=== PATIENT | male | born 1955 | race Hispanic/Latino ===

== ENCOUNTER 2017-09-11 15:12 | Inpatient (IN) | payer OTHER, MEDICARE ==
[~2017-09-11] VITALS: Ht 170.2 cm; Wt 170.8 kg
[~2017-09-11 15:12] MED LIST: ALBU90AE IH; ALBUHFA IH; DOCU-272 PO; FURO80TA3 PO; IRON1CAP3 PO; LISI40TA4 PO; MAGN400T6 PO; SPIR100T3 PO
[2017-09-11] MEDS ORDERED: ONDANSETRON HCL 4 MG/2 ML VIAL ONE ×2 (15:38→15:40)
[2017-09-11] MEDS ORDERED: SODIUM CHLORIDE 0.9% 1000ML 1,000 ML IV ONE (15:48)
[2017-09-11] MEDS ORDERED: MORPHINE SULFATE 2 MG/ML 1ML SYG ONE ×2 (15:48→22:09)
[2017-09-11 16:03] LABS: BASOPHILS % (AUTO) 0.2 % (0.0-5.0); HEMATOCRIT 40.5 % (42-54); LYMPHOCYTES % (AUTO) 6.2 % (21.0-51.0); MEAN CORPUSCULAR HEMOGLOBIN 28.8 pg (27.0-33.0); MEAN CORPUSCULAR HGB CONC 33.8 g/dL (32.0-36.0); MEAN CORPUSCULAR VOLUME 85.3 fL (79-99); MONOCYTES % (AUTO) 4.4 % (3.0-13.0); NEUTROPHILS % (AUTO) 89.2 % (40.0-77.0); PLATELET COUNT (AUTO) 137 K/uL (130-400); RED BLOOD CELL COUNT(AUTO) 4.75 MIL/uL (4.50-6.20); RED CELL DISTRIBUTION WIDTH 16.3 % (11.0-15.5); WHITE BLOOD COUNT (AUTO) 11.1 K/uL (4.8-10.8)
[2017-09-11 16:15] LABS: CREATININE 0.7 mg/dL (0.5-1.5); POTASSIUM 4.2 mmol/L (3.5-5.1)
[2017-09-11 16:19] LABS: BILIRUBIN,TOTAL 1.1 mg/dL (0.2-1.0); TOTAL PROTEIN, SERUM 9.2 g/dL (6.0-8.3)
[2017-09-11] MEDS ORDERED: IOPAMIDOL-370 100 ML VIAL IV ONE (16:41)
[2017-09-11] MEDS ORDERED: VANCOMYCIN 1GM+NS 250ML 250 ML IV ONE (18:02)
[2017-09-11] MEDS ORDERED: MEROPENEM 1 GM VIAL ONE (18:02)
[2017-09-11 20:22] LABS: APPEARANCE,URINE Clear (CLEAR); BILIRUBIN,URINE Negative (NEGATIVE); COLOR,URINE Dark Yellow (YELLOW); GLUCOSE, URINE (UA) Negative (NEGATIVE); KETONES,URINE Negative (NEGATIVE); LEUKOCYTE ESTERASE ,URINE Negative (NEGATIVE); NITRATE,URINE Negative (NEGATIVE); OCCULT BLOOD,URINE Negative (NEGATIVE); PROTEIN,URINE Negative (NEGATIVE)
[2017-09-11 21:05] VITALS: BP 157/86
[2017-09-11] MEDS ORDERED: MORPHINE SULFATE 2 MG/ML 1ML SYG IVP PRN (21:30)
[2017-09-11] MEDS ORDERED: DEXTROSE 50%-WATER 50 ML DISP.SYRIN IV PRN (21:30)
[2017-09-11] MEDS ORDERED: MORPHINE SULFATE 4 MG/1ML SYG IV PRN (21:30)
[2017-09-11] MEDS ORDERED: GLUCAGON 1MG KIT 1 MG ML IM PRN (21:30)
[2017-09-11] MEDS ORDERED: METF500T6 PO (22:40)
[2017-09-11] MEDS: SODIUM CHLORIDE 0.9% 1000ML 1,000 ML IV SCH (23:13)
[2017-09-11] MEDS: INSULIN HUMULIN R 100 UNIT/ML 3ML SQ SCH (23:15)
[2017-09-11 23:26] LABS: AMPHET/METH SCREEN,URINE NEGATIVE (NEGATIVE); BARBITURATE SCREEN, URINE NEGATIVE (NEGATIVE); BENZODIAZEPINES SCREEN,URINE NEGATIVE (NEGATIVE); CANNABINOID SCREEN,URINE POSITIVE (NEGATIVE); COCAINE SCREEN,URINE POSITIVE (NEGATIVE); OPIATE SCREEN,URINE POSITIVE (NEGATIVE); PHENCYCLIDINE SCREEN,URINE NEGATIVE (NEGATIVE)
[2017-09-12] VITALS: BP 126/57
[2017-09-12 04:00] VITALS: BP 133/71
[2017-09-12] MEDS: ONDANSETRON HCL 4 MG/2 ML VIAL IVP PRN (04:28)
[2017-09-12 04:45] LABS: HEMATOCRIT 38.4 % (42-54); MEAN CORPUSCULAR HEMOGLOBIN 28.5 pg (27.0-33.0); MEAN CORPUSCULAR HGB CONC 33.2 g/dL (32.0-36.0); MEAN CORPUSCULAR VOLUME 85.9 fL (79-99); PLATELET COUNT (AUTO) 112 K/uL (130-400); RED BLOOD CELL COUNT(AUTO) 4.47 MIL/uL (4.50-6.20); RED CELL DISTRIBUTION WIDTH 16.5 % (11.0-15.5); WHITE BLOOD COUNT (AUTO) 14.9 K/uL (4.8-10.8)
[2017-09-12 04:47] LABS: INR 1.1 (0.85-1.15); PROTHROMBIN TIME 11.5 SEC (9.6-11.6)
[2017-09-12 05:02] LABS: HEMOGLOBIN A1C 5.7 % (4.0-6.0)
[2017-09-12 05:04] LABS: CREATININE 0.8 mg/dL (0.5-1.5); POTASSIUM 3.8 mmol/L (3.5-5.1); THYROID STIMULATING HORMONE 0.93 uIU/mL (0.36-3.74)
[2017-09-12] MEDS: INSULIN HUMULIN R 100 UNIT/ML 3ML SQ SCH ×4 (05:15→23:15)
[2017-09-12] MEDS ORDERED: MEROPENEM 500MG+NS 50ML 50 ML IV SCH (06:00)
[2017-09-12] MEDS: MEROPENEM 500 MG VIAL IVP SCH ×3 (06:29→22:36)
[2017-09-12 08:17] VITALS: BP 133/64
[2017-09-12] MEDS ORDERED: PANTOPRAZOLE 40 MG/VIAL IVP SCH (09:00)
[2017-09-12] MEDS: FAMOTIDINE/PF 20 MG/2 ML VIAL IV SCH ×2 (09:16→20:12)
[2017-09-12] MEDS ORDERED: ACETAMINOPHEN-CODEINE 300/30MG TAB PO PRN (10:00)
[2017-09-12] MEDS ORDERED: MORPHINE SULFATE 4 MG/1ML SYG IVP PRN (10:15)
[2017-09-12 11:14] VITALS: BP 127/66
[2017-09-12] MEDS: SODIUM CHLORIDE 0.9% 1000ML 1,000 ML IV SCH (12:16)
[2017-09-12] MEDS: MORPHINE SULFATE 4 MG/1ML SYG IVP PRN ×2 (15:26→20:13)
[2017-09-12 17:09] VITALS: BP 120/68
[2017-09-12 19:38] VITALS: BP 127/64
[2017-09-13] VITALS (21 sets, daily range): BP systolic 116–159; BP diastolic 60–84
[2017-09-13] MEDS: MORPHINE SULFATE 4 MG/1ML SYG IVP PRN ×4 (00:45→20:49)
[2017-09-13] MEDS: SODIUM CHLORIDE 0.9% 1000ML 1,000 ML IV SCH ×4 (00:45→23:28)
[2017-09-13] MEDS: MEROPENEM 500 MG VIAL IVP SCH ×3 (05:11→23:53)
[2017-09-13] MEDS: INSULIN HUMULIN R 100 UNIT/ML 3ML SQ SCH ×6 (05:15→23:15)
[2017-09-13 05:55] LABS: HEMATOCRIT 36.3 % (42-54); MEAN CORPUSCULAR HEMOGLOBIN 29.4 pg (27.0-33.0); MEAN CORPUSCULAR HGB CONC 33.9 g/dL (32.0-36.0); MEAN CORPUSCULAR VOLUME 86.7 fL (79-99); PLATELET COUNT (AUTO) 104 K/uL (130-400); RED BLOOD CELL COUNT(AUTO) 4.19 MIL/uL (4.50-6.20); RED CELL DISTRIBUTION WIDTH 16.8 % (11.0-15.5)
[2017-09-13 06:09] LABS: CREATININE 0.8 mg/dL (0.5-1.5); POTASSIUM 3.7 mmol/L (3.5-5.1)
[2017-09-13] MEDS: FAMOTIDINE/PF 20 MG/2 ML VIAL IV SCH ×2 (09:09→20:48)
[2017-09-13] MEDS ORDERED: LIDOCAINE PF 2% 5ML ABBOJECT ONE ×2 (11:47→15:01)
[2017-09-13] MEDS ORDERED: NEOSTIGMINE 5MG/5ML SYR IV ONE ×2 (11:47→15:01)
[2017-09-13] MEDS ORDERED: FENTANYL CITRATE PF 50 MCG/1 ML 2ML VIAL ONE ×2 (11:48→13:33)
[2017-09-13] MEDS ORDERED: PROPOFOL 10 MG/ML 20ML VIAL IV ONE ×2 (11:48→12:13)
[2017-09-13] MEDS ORDERED: MIDAZOLAM HCL 1 MG/ML 2ML VIAL ONE (11:49)
[2017-09-13] MEDS ORDERED: LIDOCAINE HCL 2% JELLY 5 ML ONE (15:00)
[2017-09-13] MEDS ORDERED: SUCCINYLCHOLINE 200MG/10ML SYR ONE (15:00)
[2017-09-13] MEDS ORDERED: ROCURONIUM BROMIDE 10MG/1ML 5ML VL ONE (15:00)
[2017-09-13] MEDS ORDERED: GLYCOPYRROLATE 0.2 MG/ML 5 ML VIAL ONE (15:02)
[2017-09-13] MEDS ORDERED: PHENYLEPHRINE HCL 10 MG/ML 1ML VIAL IV ONE (15:02)
[2017-09-13] MEDS ORDERED: MEPERIDINE-PF 50 MG/ML SYG ONE (16:06)
[2017-09-13 16:14] LABS: CREATININE 0.8 mg/dL (0.5-1.5)
[2017-09-14 00:42] VITALS: BP 124/68
[2017-09-14] MEDS: MORPHINE SULFATE 4 MG/1ML SYG IVP PRN ×3 (03:25→14:30)
[2017-09-14 03:28] VITALS: BP 147/70
[2017-09-14] MEDS: INSULIN HUMULIN R 100 UNIT/ML 3ML SQ SCH ×7 (05:15→23:15)
[2017-09-14 06:06] LABS: BASOPHILS % (AUTO) 0.1 % (0.0-5.0); HEMATOCRIT 35.4 % (42-54); MEAN CORPUSCULAR HGB CONC 33.2 g/dL (32.0-36.0); MEAN CORPUSCULAR VOLUME 87.3 fL (79-99); MONOCYTES % (AUTO) 6.9 % (3.0-13.0); PLATELET COUNT (AUTO) 103 K/uL (130-400); RED BLOOD CELL COUNT(AUTO) 4.06 MIL/uL (4.50-6.20); RED CELL DISTRIBUTION WIDTH 16.7 % (11.0-15.5); WHITE BLOOD COUNT (AUTO) 7.5 K/uL (4.8-10.8)
[2017-09-14] MEDS: MEROPENEM 500 MG VIAL IVP SCH ×3 (06:14→22:00)
[2017-09-14 06:16] LABS: CREATININE 0.8 mg/dL (0.5-1.5)
[2017-09-14] MEDS: SODIUM CHLORIDE 0.9% 1000ML 1,000 ML IV SCH ×2 (07:28→17:13)
[2017-09-14 07:49] VITALS: BP 128/66
[2017-09-14] MEDS: FAMOTIDINE/PF 20 MG/2 ML VIAL IV SCH ×2 (09:26→21:00)
[2017-09-14 12:02] VITALS: BP 138/70
[2017-09-14 16:00] VITALS: BP 147/75
[2017-09-14 20:00] VITALS: BP 116/62
[2017-09-15] VITALS: BP 128/67
[2017-09-15] MEDS ORDERED: ALBUTEROL SULFATE 0.083% 2.5 MG/3 ML INH IH PRN (00:45)
[2017-09-15] MEDS: MORPHINE SULFATE 4 MG/1ML SYG IV PRN (02:35)
[2017-09-15 04:00] VITALS: BP 117/66
[2017-09-15] MEDS: INSULIN HUMULIN R 100 UNIT/ML 3ML SQ SCH ×3 (05:15→23:15)
[2017-09-15 05:31] LABS: BASOPHILS % (AUTO) 0.1 % (0.0-5.0); HEMATOCRIT 33.8 % (42-54); LYMPHOCYTES % (AUTO) 15.2 % (21.0-51.0); MEAN CORPUSCULAR HEMOGLOBIN 30.1 pg (27.0-33.0); MEAN CORPUSCULAR HGB CONC 34.6 g/dL (32.0-36.0); MONOCYTES % (AUTO) 9.7 % (3.0-13.0); NUCLEATED RED BLOOD CELLS 0.1 % (0.0-0.19); PLATELET COUNT (AUTO) 112 K/uL (130-400); RED BLOOD CELL COUNT(AUTO) 3.88 MIL/uL (4.50-6.20); RED CELL DISTRIBUTION WIDTH 16.5 % (11.0-15.5); WHITE BLOOD COUNT (AUTO) 7.1 K/uL (4.8-10.8)
[2017-09-15 05:41] LABS: CREATININE 0.7 mg/dL (0.5-1.5); POTASSIUM 3.5 mmol/L (3.5-5.1)
[2017-09-15] MEDS: MEROPENEM 500 MG VIAL IVP SCH ×3 (07:01→21:44)
[2017-09-15] MEDS: ALBUTEROL SULFATE 0.083% 2.5 MG/3 ML INH IH PRN ×2 (07:03→19:36)
[2017-09-15 08:00] VITALS: BP 126/77
[2017-09-15] MEDS: FAMOTIDINE/PF 20 MG/2 ML VIAL IV SCH ×2 (10:57→21:44)
[2017-09-15] MEDS: SODIUM CHLORIDE 0.9% 1000ML 1,000 ML IV SCH ×2 (10:57→12:44)
[2017-09-15] MEDS: MORPHINE SULFATE 4 MG/1ML SYG IVP PRN (10:58)
[2017-09-15 12:00] VITALS: BP 131/73
[2017-09-15 16:00] VITALS: BP 134/69
[2017-09-15] MEDS: KETOROLAC TROMETHAMINE 15MG/ML IV PRN (18:17)
[2017-09-15] MEDS: POTASSIUM CHLORIDE 20MEQ/100ML 100 ML IV PRN (18:18)
[2017-09-15] MEDS: LIDOCAINE HCL-MPF 1% 2ML VIAL IVP PRN (18:18)
[2017-09-15 20:00] VITALS: BP 132/62
[2017-09-16] VITALS (7 sets, daily range): BP systolic 121–148; BP diastolic 57–73
[2017-09-16] MEDS: MORPHINE SULFATE 4 MG/1ML SYG IV PRN (00:52)
[2017-09-16 05:05] LABS: CREATININE 0.7 mg/dL (0.5-1.5); POTASSIUM 3.6 mmol/L (3.5-5.1)
[2017-09-16] MEDS: INSULIN HUMULIN R 100 UNIT/ML 3ML SQ SCH ×4 (05:15→23:15)
[2017-09-16] MEDS: MEROPENEM 500 MG VIAL IVP SCH ×3 (06:05→21:37)
[2017-09-16] MEDS: SODIUM CHLORIDE 0.9% 1000ML 1,000 ML IV SCH ×3 (06:06→18:13)
[2017-09-16] MEDS: ALBUTEROL SULFATE 0.083% 2.5 MG/3 ML INH IH PRN ×2 (06:47→18:39)
[2017-09-16] MEDS: FAMOTIDINE/PF 20 MG/2 ML VIAL IV SCH ×2 (09:33→21:37)
[2017-09-16] MEDS: KETOROLAC TROMETHAMINE 15MG/ML IV PRN (09:33)
[2017-09-16] MEDS: MORPHINE SULFATE 4 MG/1ML SYG IVP PRN (21:39)
[2017-09-17] MEDS: MORPHINE SULFATE 4 MG/1ML SYG IVP PRN ×2 (02:58→18:44)
[2017-09-17 04:00] VITALS: BP 138/72
[2017-09-17] MEDS: SODIUM CHLORIDE 0.9% 1000ML 1,000 ML IV SCH ×2 (04:07→14:56)
[2017-09-17] MEDS: INSULIN HUMULIN R 100 UNIT/ML 3ML SQ SCH ×4 (05:15→20:46)
[2017-09-17] MEDS: MEROPENEM 500 MG VIAL IVP SCH ×3 (05:43→21:51)
[2017-09-17 05:47] LABS: HEMATOCRIT 34.4 % (42-54); MEAN CORPUSCULAR HEMOGLOBIN 30.5 pg (27.0-33.0); MEAN CORPUSCULAR VOLUME 87.3 fL (79-99); PLATELET COUNT (AUTO) 110 K/uL (130-400); RED BLOOD CELL COUNT(AUTO) 3.94 MIL/uL (4.50-6.20); RED CELL DISTRIBUTION WIDTH 16.6 % (11.0-15.5); WHITE BLOOD COUNT (AUTO) 5.9 K/uL (4.8-10.8)
[2017-09-17 05:52] LABS: CREATININE 0.7 mg/dL (0.5-1.5); POTASSIUM 3.3 mmol/L (3.5-5.1)
[2017-09-17] MEDS: ALBUTEROL SULFATE 0.083% 2.5 MG/3 ML INH IH PRN ×2 (06:06→18:41)
[2017-09-17 07:00] VITALS: BP 138/74
[2017-09-17] MEDS: FAMOTIDINE/PF 20 MG/2 ML VIAL IV SCH ×2 (09:36→20:06)
[2017-09-17] MEDS: KETOROLAC TROMETHAMINE 15MG/ML IV PRN (09:37)
[2017-09-17 11:00] VITALS: BP 130/68
[2017-09-17 16:00] VITALS: BP_SYST 115; BP_SYST 125; BP_DIAS 59; BP_DIAS 81
[2017-09-17] MEDS: POTASSIUM CHLORIDE 20MEQ/100ML 100 ML IV PRN (16:09)
[2017-09-17] MEDS: LIDOCAINE HCL-MPF 1% 2ML VIAL IVP PRN (16:09)
[2017-09-17 20:00] VITALS: BP 159/63
[2017-09-18] VITALS: BP 130/79
[2017-09-18] MEDS: SODIUM CHLORIDE 0.9% 1000ML 1,000 ML IV SCH (00:32)
[2017-09-18 04:00] VITALS: BP 155/80
[2017-09-18] MEDS: MORPHINE SULFATE 4 MG/1ML SYG IVP PRN (04:32)
[2017-09-18] MEDS: INSULIN HUMULIN R 100 UNIT/ML 3ML SQ SCH ×4 (05:15→20:57)
[2017-09-18] MEDS: MEROPENEM 500 MG VIAL IVP SCH ×3 (06:13→21:25)
[2017-09-18 06:14] LABS: CREATININE 0.8 mg/dL (0.5-1.5); POTASSIUM 3.1 mmol/L (3.5-5.1)
[2017-09-18] MEDS: ALBUTEROL SULFATE 0.083% 2.5 MG/3 ML INH IH PRN ×2 (06:41→18:37)
[2017-09-18 07:00] VITALS: BP 113/61
[2017-09-18] MEDS: LIDOCAINE HCL-MPF 1% 2ML VIAL IVP PRN (08:30)
[2017-09-18] MEDS: FAMOTIDINE/PF 20 MG/2 ML VIAL IV SCH ×2 (08:30→21:26)
[2017-09-18] MEDS: POTASSIUM CHLORIDE 20MEQ/100ML 100 ML IV PRN (08:30)
[2017-09-18 11:00] VITALS: BP 152/68
[2017-09-18 16:00] VITALS: BP 117/72
[2017-09-18] MEDS: FUROSEMIDE 40 MG TABLET PO SCH (17:56)
[2017-09-18 20:00] VITALS: BP 121/74
[2017-09-18] MEDS: ACETAMINOPHEN-CODEINE 300/30MG TAB PO PRN (21:26)
[2017-09-19] VITALS: BP 127/60
[2017-09-19] MEDS: ACETAMINOPHEN-CODEINE 300/30MG TAB PO PRN ×3 (03:43→19:54)
[2017-09-19 04:00] VITALS: BP 138/78
[2017-09-19] MEDS: INSULIN HUMULIN R 100 UNIT/ML 3ML SQ SCH ×4 (05:15→22:11)
[2017-09-19] MEDS: ONDANSETRON HCL 4 MG/2 ML VIAL IVP PRN ×2 (05:33→23:58)
[2017-09-19] MEDS: MEROPENEM 500 MG VIAL IVP SCH ×3 (05:33→22:04)
[2017-09-19 06:23] LABS: HEMATOCRIT 41.2 % (42-54); MEAN CORPUSCULAR HEMOGLOBIN 28.4 pg (27.0-33.0); MEAN CORPUSCULAR HGB CONC 32.9 g/dL (32.0-36.0); MEAN CORPUSCULAR VOLUME 86.4 fL (79-99); PLATELET COUNT (AUTO) 204 K/uL (130-400); RED BLOOD CELL COUNT(AUTO) 4.77 MIL/uL (4.50-6.20); RED CELL DISTRIBUTION WIDTH 16.5 % (11.0-15.5); WHITE BLOOD COUNT (AUTO) 17.5 K/uL (4.8-10.8)
[2017-09-19 06:32] LABS: POTASSIUM 3.2 mmol/L (3.5-5.1)
[2017-09-19 08:37] VITALS: BP 141/69
[2017-09-19] MEDS: KETOROLAC TROMETHAMINE 15MG/ML IV PRN (10:13)
[2017-09-19] MEDS: POTASSIUM CHLORIDE 20 MEQ ERTAB PO PRN ×3 (10:13→17:26)
[2017-09-19] MEDS: FAMOTIDINE/PF 20 MG/2 ML VIAL IV SCH ×2 (10:13→19:54)
[2017-09-19] MEDS: FUROSEMIDE 40 MG TABLET PO SCH ×2 (10:14→17:25)
[2017-09-19] MEDS: SPIRONOLACTONE 25 MG TAB PO SCH (10:14)
[2017-09-19 11:54] VITALS: BP 147/71
[2017-09-19 16:41] VITALS: BP 149/78
[2017-09-19 20:00] VITALS: BP 140/74
[2017-09-20] VITALS: BP 138/83
[2017-09-20] MEDS: ACETAMINOPHEN-CODEINE 300/30MG TAB PO PRN ×3 (03:27→18:18)
[2017-09-20 04:00] VITALS: BP 139/88
[2017-09-20] MEDS: INSULIN HUMULIN R 100 UNIT/ML 3ML SQ SCH ×3 (05:15→23:15)
[2017-09-20 05:30] LABS: HEMATOCRIT 39.1 % (42-54); MEAN CORPUSCULAR HEMOGLOBIN 28.5 pg (27.0-33.0); MEAN CORPUSCULAR HGB CONC 33.3 g/dL (32.0-36.0); MEAN CORPUSCULAR VOLUME 85.6 fL (79-99); PLATELET COUNT (AUTO) 129 K/uL (130-400); RED BLOOD CELL COUNT(AUTO) 4.56 MIL/uL (4.50-6.20); RED CELL DISTRIBUTION WIDTH 16.4 % (11.0-15.5); WHITE BLOOD COUNT (AUTO) 11.2 K/uL (4.8-10.8)
[2017-09-20 05:42] LABS: CREATININE 0.8 mg/dL (0.5-1.5); MAGNESIUM 1.4 mg/dL (1.80-2.40); POTASSIUM 3.6 mmol/L (3.5-5.1)
[2017-09-20] MEDS: ALBUTEROL SULFATE 0.083% 2.5 MG/3 ML INH IH PRN (05:56)
[2017-09-20] MEDS: MEROPENEM 500 MG VIAL IVP SCH ×3 (06:43→22:53)
[2017-09-20 08:00] VITALS: BP 134/73
[2017-09-20] MEDS: MAGNESIUM 2GM PREMIX 50ML 50 ML IV SCH (11:08)
[2017-09-20] MEDS: FAMOTIDINE/PF 20 MG/2 ML VIAL IV SCH ×2 (11:08→20:12)
[2017-09-20] MEDS: SPIRONOLACTONE 25 MG TAB PO SCH (11:08)
[2017-09-20] MEDS: FUROSEMIDE 40 MG TABLET PO SCH ×2 (11:09→17:00)
[2017-09-20 12:00] VITALS: BP 132/77
[2017-09-20 16:00] VITALS: BP 120/73
[2017-09-20 20:00] VITALS: BP 150/66
[2017-09-20] MEDS: ONDANSETRON HCL 4 MG/2 ML VIAL IVP PRN (20:12)
[2017-09-21] VITALS: BP 144/78
[2017-09-21 04:00] VITALS: BP 114/76
[2017-09-21] MEDS: INSULIN HUMULIN R 100 UNIT/ML 3ML SQ SCH ×4 (05:15→23:15)
[2017-09-21 05:29] LABS: BASOPHILS % (AUTO) 0.5 % (0.0-5.0); HEMATOCRIT 38.9 % (42-54); LYMPHOCYTES % (AUTO) 14.5 % (21.0-51.0); MEAN CORPUSCULAR HEMOGLOBIN 28.5 pg (27.0-33.0); MEAN CORPUSCULAR HGB CONC 33.5 g/dL (32.0-36.0); MEAN CORPUSCULAR VOLUME 85.2 fL (79-99); MONOCYTES % (AUTO) 9.8 % (3.0-13.0); NEUTROPHILS % (AUTO) 74.2 % (40.0-77.0); PLATELET COUNT (AUTO) 144 K/uL (130-400); RED BLOOD CELL COUNT(AUTO) 4.57 MIL/uL (4.50-6.20); RED CELL DISTRIBUTION WIDTH 16.6 % (11.0-15.5); WHITE BLOOD COUNT (AUTO) 11.5 K/uL (4.8-10.8)
[2017-09-21 05:43] LABS: POTASSIUM 3.2 mmol/L (3.5-5.1)
[2017-09-21] MEDS: MEROPENEM 500 MG VIAL IVP SCH ×3 (06:28→22:30)
[2017-09-21 08:00] VITALS: BP 140/83
[2017-09-21] MEDS: FUROSEMIDE 40 MG TABLET PO SCH ×2 (10:58→13:10)
[2017-09-21 11:53] VITALS: BP 130/74
[2017-09-21] MEDS: SPIRONOLACTONE 25 MG TAB PO SCH (13:10)
[2017-09-21] MEDS: POTASSIUM CHLORIDE 20 MEQ ERTAB PO PRN ×3 (13:11→19:29)
[2017-09-21] MEDS: ACETAMINOPHEN-CODEINE 300/30MG TAB PO PRN ×2 (13:12→19:30)
[2017-09-21] MEDS: FAMOTIDINE/PF 20 MG/2 ML VIAL IV SCH ×2 (13:13→22:29)
[2017-09-21 16:00] VITALS: BP 157/89
[2017-09-21] MEDS: ALBUTEROL SULFATE 0.083% 2.5 MG/3 ML INH IH PRN (18:32)
[2017-09-21 20:00] VITALS: BP 142/81
[2017-09-22] VITALS (26 sets, daily range): BP systolic 119–188; BP diastolic 76–94
[2017-09-22 05:01] LABS: MEAN CORPUSCULAR HEMOGLOBIN 28.6 pg (27.0-33.0); MEAN CORPUSCULAR HGB CONC 33.9 g/dL (32.0-36.0); MEAN CORPUSCULAR VOLUME 84.4 fL (79-99); NUCLEATED RED BLOOD CELLS 0.1 % (0.0-0.19); PLATELET COUNT (AUTO) 154 K/uL (130-400); RED BLOOD CELL COUNT(AUTO) 4.61 MIL/uL (4.50-6.20); RED CELL DISTRIBUTION WIDTH 16.5 % (11.0-15.5); WHITE BLOOD COUNT (AUTO) 12.8 K/uL (4.8-10.8)
[2017-09-22] MEDS: INSULIN HUMULIN R 100 UNIT/ML 3ML SQ SCH ×4 (05:15→23:15)
[2017-09-22 05:37] LABS: MAGNESIUM 1.3 mg/dL (1.80-2.40); PHOSPHORUS 3.6 mg/dL (2.5-4.9); POTASSIUM 3.4 mmol/L (3.5-5.1)
[2017-09-22] MEDS: ALBUTEROL SULFATE 0.083% 2.5 MG/3 ML INH IH PRN (06:15)
[2017-09-22] MEDS: MEROPENEM 500 MG VIAL IVP SCH ×3 (06:54→21:59)
[2017-09-22] MEDS: POTASSIUM CHLORIDE 20MEQ/100ML 100 ML IV PRN (06:55)
[2017-09-22] MEDS: LIDOCAINE HCL-MPF 1% 2ML VIAL IVP PRN (06:55)
[2017-09-22] MEDS ORDERED: SODIUM CHLORIDE 0.9% 1000ML 1,000 ML IV ONE (07:01)
[2017-09-22] MEDS: FUROSEMIDE 40 MG TABLET PO SCH ×2 (08:00→16:48)
[2017-09-22] MEDS: FAMOTIDINE/PF 20 MG/2 ML VIAL IV SCH ×2 (08:52→21:58)
[2017-09-22] MEDS: MAGNESIUM 2GM PREMIX 50ML 50 ML IV SCH (08:53)
[2017-09-22] MEDS: SPIRONOLACTONE 25 MG TAB PO SCH (09:00)
[2017-09-22] MEDS: SODIUM CHLORIDE 0.9% 1000ML 1,000 ML IV SCH ×2 (09:24→16:48)
[2017-09-22] MEDS ORDERED: MORPHINE SULFATE 2 MG/ML 1ML SYG IVP PRN (09:30)
[2017-09-22] MEDS ORDERED: HYDRALAZINE HCL 20 MG/ML VIAL IV PRN (09:30)
[2017-09-22] MEDS ORDERED: MEROPENEM 500 MG VIAL IVP SCH (10:45)
[2017-09-22] MEDS ORDERED: PROPOFOL 10 MG/ML 20ML VIAL IV ONE (12:06)
[2017-09-22] MEDS ORDERED: GLYCOPYRROLATE 0.2 MG/ML 5 ML VIAL ONE (12:06)
[2017-09-22] MEDS ORDERED: LIDOCAINE PF 2% 5ML ABBOJECT ONE (12:06)
[2017-09-22] MEDS ORDERED: FENTANYL CITRATE PF 50 MCG/1 ML 2ML VIAL ONE (12:06)
[2017-09-22] MEDS ORDERED: ONDANSETRON HCL 4 MG/2 ML VIAL ONE (12:06)
[2017-09-22] MEDS ORDERED: SUCCINYLCHOLINE 200MG/10ML SYR ONE (12:06)
[2017-09-22] MEDS ORDERED: DEXAMETHASONE SOD PHOSPHATE 10MG/ML 1ML VIAL ONE (12:06)
[2017-09-22] MEDS ORDERED: MIDAZOLAM HCL 1 MG/ML 2ML VIAL ONE (12:07)
[2017-09-22] MEDS ORDERED: ROCURONIUM BROMIDE 10MG/1ML 5ML VL ONE ×2 (12:13→12:41)
[2017-09-22] MEDS ORDERED: NEOSTIGMINE METHYLSULFATE 1MG/ML IV ONE (14:18)
[2017-09-22] MEDS ORDERED: MEPERIDINE-PF 25 MG/ML SYG ONE ×2 (14:50→14:59)
[2017-09-22] MEDS ORDERED: LABETALOL 20 MG/4 ML DISP.SYRIN IV PRN (18:45)
[2017-09-22] MEDS: MORPHINE SULFATE 2 MG/ML 1ML SYG IV PRN ×2 (19:09→23:09)
[2017-09-22] MEDS ORDERED: LABETALOL HCL 5 MG/ML 20ML VIAL IV PRN (19:09)
[2017-09-22] MEDS: CEFTAZIDIME PENTAHYDRATE 1 GM/VIAL IVP SCH (21:59)
[2017-09-22] MEDS ORDERED: CEFTAZIDIME 1GM+NS 50ML 50 ML IV SCH (22:00)
[2017-09-23] VITALS: BP 150/69
[2017-09-23] MEDS: SODIUM CHLORIDE 0.9% 1000ML 1,000 ML IV SCH ×4 (00:28→20:01)
[2017-09-23] MEDS: MORPHINE SULFATE 2 MG/ML 1ML SYG IV PRN ×3 (03:34→22:49)
[2017-09-23 04:00] VITALS: BP 176/78
[2017-09-23] MEDS: INSULIN HUMULIN R 100 UNIT/ML 3ML SQ SCH ×4 (05:15→23:15)
[2017-09-23 05:16] LABS: BASOPHILS % (AUTO) 0.2 % (0.0-5.0); HEMATOCRIT 39.3 % (42-54); MEAN CORPUSCULAR HEMOGLOBIN 28.2 pg (27.0-33.0); MEAN CORPUSCULAR HGB CONC 33.1 g/dL (32.0-36.0); MEAN CORPUSCULAR VOLUME 85.1 fL (79-99); MONOCYTES % (AUTO) 4.6 % (3.0-13.0); NEUTROPHILS % (AUTO) 90.2 % (40.0-77.0); NUCLEATED RED BLOOD CELLS 0.1 % (0.0-0.19); PLATELET COUNT (AUTO) 161 K/uL (130-400); RED BLOOD CELL COUNT(AUTO) 4.62 MIL/uL (4.50-6.20); RED CELL DISTRIBUTION WIDTH 16.6 % (11.0-15.5); WHITE BLOOD COUNT (AUTO) 13.7 K/uL (4.8-10.8)
[2017-09-23 05:24] LABS: CREATININE 0.9 mg/dL (0.5-1.5); POTASSIUM 4.4 mmol/L (3.5-5.1)
[2017-09-23] MEDS: ALBUTEROL SULFATE 0.083% 2.5 MG/3 ML INH IH PRN ×2 (06:22→19:55)
[2017-09-23] MEDS: CEFTAZIDIME PENTAHYDRATE 1 GM/VIAL IVP SCH ×3 (07:09→22:18)
[2017-09-23] MEDS: MEROPENEM 500 MG VIAL IVP SCH ×3 (07:10→22:18)
[2017-09-23 08:00] VITALS: BP 141/70
[2017-09-23] MEDS: FUROSEMIDE 40 MG TABLET PO SCH ×2 (08:00→16:11)
[2017-09-23] MEDS: SPIRONOLACTONE 25 MG TAB PO SCH (09:00)
[2017-09-23] MEDS: FAMOTIDINE/PF 20 MG/2 ML VIAL IV SCH ×2 (10:04→22:18)
[2017-09-23 12:00] VITALS: BP 146/77
[2017-09-23] MEDS: MORPHINE SULFATE 4 MG/1ML SYG IV PRN (13:34)
[2017-09-23 17:26] VITALS: BP 154/76
[2017-09-23 20:00] VITALS: BP 145/71
[2017-09-24] VITALS: BP 141/67
[2017-09-24] MEDS: SODIUM CHLORIDE 0.9% 1000ML 1,000 ML IV SCH ×3 (01:24→19:09)
[2017-09-24 04:00] VITALS: BP 138/74
[2017-09-24] MEDS: MORPHINE SULFATE 2 MG/ML 1ML SYG IV PRN ×3 (04:19→21:13)
[2017-09-24] MEDS: INSULIN HUMULIN R 100 UNIT/ML 3ML SQ SCH ×4 (05:15→23:15)
[2017-09-24 05:45] LABS: BASOPHILS % (AUTO) 0.1 % (0.0-5.0); HEMATOCRIT 34.8 % (42-54); MEAN CORPUSCULAR HEMOGLOBIN 29.7 pg (27.0-33.0); MEAN CORPUSCULAR HGB CONC 34.2 g/dL (32.0-36.0); MEAN CORPUSCULAR VOLUME 86.7 fL (79-99); NEUTROPHILS % (AUTO) 82.9 % (40.0-77.0); PLATELET COUNT (AUTO) 150 K/uL (130-400); RED BLOOD CELL COUNT(AUTO) 4.02 MIL/uL (4.50-6.20); RED CELL DISTRIBUTION WIDTH 16.9 % (11.0-15.5); WHITE BLOOD COUNT (AUTO) 10.7 K/uL (4.8-10.8)
[2017-09-24 05:59] LABS: CREATININE 0.7 mg/dL (0.5-1.5); POTASSIUM 3.6 mmol/L (3.5-5.1)
[2017-09-24] MEDS: CEFTAZIDIME PENTAHYDRATE 1 GM/VIAL IVP SCH ×3 (06:01→21:06)
[2017-09-24] MEDS: MEROPENEM 500 MG VIAL IVP SCH ×3 (06:02→21:06)
[2017-09-24] MEDS: POTASSIUM CHLORIDE 20MEQ/100ML 100 ML IV PRN (06:35)
[2017-09-24] MEDS: LIDOCAINE HCL-MPF 1% 2ML VIAL IVP PRN (06:35)
[2017-09-24 07:33] VITALS: BP 138/74
[2017-09-24] MEDS: FUROSEMIDE 40 MG TABLET PO SCH ×3 (08:00→17:00)
[2017-09-24] MEDS: SPIRONOLACTONE 25 MG TAB PO SCH (09:00)
[2017-09-24] MEDS: FAMOTIDINE/PF 20 MG/2 ML VIAL IV SCH ×2 (09:00→20:54)
[2017-09-24 12:05] VITALS: BP 132/69
[2017-09-24 15:35] VITALS: BP 124/67
[2017-09-24 20:00] VITALS: BP 133/74
[2017-09-25] VITALS: BP 127/61
[2017-09-25] MEDS: MORPHINE SULFATE 2 MG/ML 1ML SYG IV PRN ×2 (01:40→22:36)
[2017-09-25 04:00] VITALS: BP 133/72
[2017-09-25] MEDS: INSULIN HUMULIN R 100 UNIT/ML 3ML SQ SCH ×4 (05:15→23:15)
[2017-09-25 05:47] LABS: BASOPHILS % (AUTO) 0.1 % (0.0-5.0); EOSINOPHILS % (AUTO) 0.1 % (0.0-8.0); HEMATOCRIT 39.6 % (42-54); LYMPHOCYTES % (AUTO) 11.2 % (21.0-51.0); MEAN CORPUSCULAR HEMOGLOBIN 28.1 pg (27.0-33.0); MEAN CORPUSCULAR HGB CONC 32.3 g/dL (32.0-36.0); MEAN CORPUSCULAR VOLUME 87.2 fL (79-99); MONOCYTES % (AUTO) 10.8 % (3.0-13.0); NEUTROPHILS % (AUTO) 77.8 % (40.0-77.0); PLATELET COUNT (AUTO) 212 K/uL (130-400); RED BLOOD CELL COUNT(AUTO) 4.54 MIL/uL (4.50-6.20); RED CELL DISTRIBUTION WIDTH 16.5 % (11.0-15.5); WHITE BLOOD COUNT (AUTO) 17.1 K/uL (4.8-10.8)
[2017-09-25 05:54] LABS: POTASSIUM 4.1 mmol/L (3.5-5.1)
[2017-09-25] MEDS: MEROPENEM 500 MG VIAL IVP SCH (05:55)
[2017-09-25] MEDS: CEFTAZIDIME PENTAHYDRATE 1 GM/VIAL IVP SCH ×3 (05:55→22:34)
[2017-09-25] MEDS: FAMOTIDINE/PF 20 MG/2 ML VIAL IV SCH ×3 (07:43→22:34)
[2017-09-25] MEDS: MORPHINE SULFATE 4 MG/1ML SYG IV PRN ×2 (07:43→17:08)
[2017-09-25 07:52] VITALS: BP 146/78
[2017-09-25] MEDS: FUROSEMIDE 40 MG TABLET PO SCH ×2 (08:00→17:00)
[2017-09-25] MEDS: SPIRONOLACTONE 25 MG TAB PO SCH (09:00)
[2017-09-25] MEDS: SODIUM CHLORIDE 0.9% 1000ML 1,000 ML IV SCH ×2 (09:27→23:45)
[2017-09-25 11:15] VITALS: BP 139/83
[2017-09-25 16:36] VITALS: BP 146/68
[2017-09-25] MEDS: METRONIDAZOLE 500MG/100ML BAG 100 ML IV SCH ×2 (17:07→22:34)
[2017-09-25 20:00] VITALS: BP 112/69
[2017-09-26] VITALS (7 sets, daily range): BP systolic 122–169; BP diastolic 66–79
[2017-09-26] MEDS: MORPHINE SULFATE 2 MG/ML 1ML SYG IV PRN ×3 (03:49→21:53)
[2017-09-26] MEDS: INSULIN HUMULIN R 100 UNIT/ML 3ML SQ SCH ×4 (05:15→21:54)
[2017-09-26 05:37] LABS: BASOPHILS % (AUTO) 0.2 % (0.0-5.0); EOSINOPHILS % (AUTO) 0.5 % (0.0-8.0); HEMATOCRIT 33.6 % (42-54); LYMPHOCYTES % (AUTO) 12.1 % (21.0-51.0); MEAN CORPUSCULAR HEMOGLOBIN 29.2 pg (27.0-33.0); MEAN CORPUSCULAR HGB CONC 34.2 g/dL (32.0-36.0); MEAN CORPUSCULAR VOLUME 85.3 fL (79-99); MONOCYTES % (AUTO) 13.1 % (3.0-13.0); NEUTROPHILS % (AUTO) 74.1 % (40.0-77.0); NUCLEATED RED BLOOD CELLS 0.1 % (0.0-0.19); PLATELET COUNT (AUTO) 115 K/uL (130-400); RED BLOOD CELL COUNT(AUTO) 3.94 MIL/uL (4.50-6.20); RED CELL DISTRIBUTION WIDTH 16.1 % (11.0-15.5); WHITE BLOOD COUNT (AUTO) 9.4 K/uL (4.8-10.8)
[2017-09-26 05:47] LABS: CREATININE 0.7 mg/dL (0.5-1.5); POTASSIUM 3.2 mmol/L (3.5-5.1)
[2017-09-26] MEDS: CEFTAZIDIME PENTAHYDRATE 1 GM/VIAL IVP SCH ×3 (05:57→21:53)
[2017-09-26] MEDS: METRONIDAZOLE 500MG/100ML BAG 100 ML IV SCH ×3 (05:57→21:53)
[2017-09-26] MEDS: ALBUTEROL SULFATE 0.083% 2.5 MG/3 ML INH IH PRN ×2 (05:57→19:29)
[2017-09-26] MEDS: POTASSIUM CHLORIDE 20MEQ/100ML 100 ML IV PRN (06:39)
[2017-09-26] MEDS: LIDOCAINE HCL-MPF 1% 2ML VIAL IVP PRN (06:42)
[2017-09-26] MEDS: FAMOTIDINE/PF 20 MG/2 ML VIAL IV SCH (09:48)
[2017-09-26] MEDS: FUROSEMIDE 40 MG TABLET PO SCH ×2 (09:48→17:17)
[2017-09-26] MEDS: POTASSIUM CHLORIDE 10% ELIXIR 20 MEQ/15 ML UDCUP PO PRN ×2 (09:48→12:19)
[2017-09-26] MEDS: SPIRONOLACTONE 25 MG TAB PO SCH (09:48)
[2017-09-27 04:00] VITALS: BP 132/72
[2017-09-27] MEDS: INSULIN HUMULIN R 100 UNIT/ML 3ML SQ SCH ×4 (05:15→20:58)
[2017-09-27 05:48] LABS: BASOPHILS % (AUTO) 0.3 % (0.0-5.0); EOSINOPHILS % (AUTO) 1.5 % (0.0-8.0); LYMPHOCYTES % (AUTO) 20.7 % (21.0-51.0); MEAN CORPUSCULAR HEMOGLOBIN 28.8 pg (27.0-33.0); MEAN CORPUSCULAR HGB CONC 33.9 g/dL (32.0-36.0); MONOCYTES % (AUTO) 15.3 % (3.0-13.0); NEUTROPHILS % (AUTO) 62.2 % (40.0-77.0); PLATELET COUNT (AUTO) 121 K/uL (130-400); RED BLOOD CELL COUNT(AUTO) 3.77 MIL/uL (4.50-6.20); RED CELL DISTRIBUTION WIDTH 16.3 % (11.0-15.5); WHITE BLOOD COUNT (AUTO) 8.1 K/uL (4.8-10.8)
[2017-09-27] MEDS: ALBUTEROL SULFATE 0.083% 2.5 MG/3 ML INH IH PRN ×2 (05:50→19:00)
[2017-09-27 05:54] LABS: CREATININE 0.7 mg/dL (0.5-1.5); POTASSIUM 3.3 mmol/L (3.5-5.1)
[2017-09-27] MEDS: CEFTAZIDIME PENTAHYDRATE 1 GM/VIAL IVP SCH ×3 (06:40→20:36)
[2017-09-27] MEDS: METRONIDAZOLE 500MG/100ML BAG 100 ML IV SCH ×3 (06:40→20:36)
[2017-09-27] MEDS: MORPHINE SULFATE 4 MG/1ML SYG IV PRN ×2 (06:41→13:30)
[2017-09-27] MEDS: POTASSIUM CHLORIDE 20 MEQ ERTAB PO PRN ×4 (06:53→17:16)
[2017-09-27 08:09] VITALS: BP 113/56
[2017-09-27] MEDS: FUROSEMIDE 40 MG TABLET PO SCH ×2 (09:09→17:16)
[2017-09-27] MEDS: SPIRONOLACTONE 25 MG TAB PO SCH (09:09)
[2017-09-27] MEDS: FAMOTIDINE/PF 20 MG/2 ML VIAL IV SCH ×2 (09:09→20:36)
[2017-09-27 11:44] VITALS: BP 128/63
[2017-09-27] MEDS: ACETAMINOPHEN-CODEINE 300/30MG TAB PO PRN (12:10)
[2017-09-27 16:45] VITALS: BP 139/75
[2017-09-27 20:00] VITALS: BP 133/70
[2017-09-27] MEDS: MORPHINE SULFATE 4 MG/1ML SYG IVP PRN (20:52)
[2017-09-27 23:47] VITALS: BP 149/80
[2017-09-28 03:34] VITALS: BP 92/59
[2017-09-28 05:52] LABS: POTASSIUM 3.4 mmol/L (3.5-5.1)
[2017-09-28] MEDS: ALBUTEROL SULFATE 0.083% 2.5 MG/3 ML INH IH PRN (06:01)
[2017-09-28] MEDS: CEFTAZIDIME PENTAHYDRATE 1 GM/VIAL IVP SCH (06:37)
[2017-09-28] MEDS: METRONIDAZOLE 500MG/100ML BAG 100 ML IV SCH (06:37)
[2017-09-28] MEDS: MORPHINE SULFATE 4 MG/1ML SYG IVP PRN ×2 (06:38→12:04)
[2017-09-28] MEDS: INSULIN HUMULIN R 100 UNIT/ML 3ML SQ SCH ×2 (06:38→12:02)
[2017-09-28] MEDS: FUROSEMIDE 40 MG TABLET PO SCH (08:00)
[2017-09-28 08:02] VITALS: BP 146/71
[2017-09-28] MEDS: FAMOTIDINE/PF 20 MG/2 ML VIAL IV SCH (09:52)
[2017-09-28] MEDS: SPIRONOLACTONE 25 MG TAB PO SCH (09:52)
[2017-09-28] MEDS: POTASSIUM CHLORIDE 20 MEQ ERTAB PO PRN (09:59)
[2017-09-28 11:50] VITALS: BP 136/72
[2017-11-13] MEDS ORDERED: SPIR25TA4 PO (09:22)
== END 2017-09-28 14:15 | disposition home or self-care (01) | DRG 354 ==
LOC: EDH 15:12 → 4BH 15:13 → 4CH 09-14 11:56
PROVIDERS: ADMIT Internal Medicine; ATTEND Internal Medicine
PROC: 0WUF0JZ Supplement Abdominal Wall with Synthetic Substitute, Open Approach (ICD-10-PCS; principal; 2017-09-13 13:31)
PROC: 0DBU0ZZ Excision of Omentum, Open Approach (ICD-10-PCS; 2017-09-13 13:31)
DX: K43.0 Incisional hernia with obstruction, without gangrene (principal); K56.609 Unspecified intestinal obstruction, unspecified as to partial versus complete obstruction; E66.01 Morbid (severe) obesity due to excess calories; K70.30 Alcoholic cirrhosis of liver without ascites; E11.9 Type 2 diabetes mellitus without complications; D72.829 Elevated white blood cell count, unspecified; Z68.43 Body mass index [BMI] 50.0-59.9, adult; Z68.44 Body mass index [BMI] 60.0-69.9, adult; R74.0 Nonspecific elevation of levels of transaminase and lactic acid dehydrogenase [LDH]; Z82.49 Family history of ischemic heart disease and other diseases of the circulatory system
CPT/HCPCS: 36415; 71045; 74021; 74176; 74177; 80048; 80053; 80305; 81003; 82948; 83036; 83690; 83735; 84100; 84443; 85025; 85027; 85610; 88302; 88307; 93005; 94640; 94664; A4218; A4344; A4606; C1781; J0330; J0360; J0713; J1100; J1815; J1885; J2001; J2175; J2185; J2250; J2270; J2370; J2405; J2704; J2710; J3010; J3370; J3475; J3480; J3490; J7030; J7120; Q9967

== ENCOUNTER 2017-09-30 01:51 | Inpatient (IN) | payer OTHER, MEDICARE ==
[~2017-09-30] VITALS: Ht 170.2 cm; Wt 175.6 kg
[~2017-09-30 01:51] MED LIST changes: -ALBU90AE IH; -DOCU-272 PO; -IRON1CAP3 PO; -LISI40TA4 PO; -MAGN400T6 PO; +METF500T6 PO
[2017-09-30 02:45] LABS: BASOPHILS % (AUTO) 0.4 % (0.0-5.0); EOSINOPHILS % (AUTO) 2.2 % (0.0-8.0); HEMATOCRIT 33.2 % (42-54); LYMPHOCYTES % (AUTO) 11.4 % (21.0-51.0); MEAN CORPUSCULAR HEMOGLOBIN 28.8 pg (27.0-33.0); MEAN CORPUSCULAR VOLUME 84.9 fL (79-99); MONOCYTES % (AUTO) 15.5 % (3.0-13.0); NEUTROPHILS % (AUTO) 70.5 % (40.0-77.0); PLATELET COUNT (AUTO) 134 K/uL (130-400); RED BLOOD CELL COUNT(AUTO) 3.91 MIL/uL (4.50-6.20); RED CELL DISTRIBUTION WIDTH 16.3 % (11.0-15.5); WHITE BLOOD COUNT (AUTO) 10.2 K/uL (4.8-10.8)
[2017-09-30 03:00] LABS: CREATININE 1.1 mg/dL (0.5-1.5)
[2017-09-30 03:05] LABS: ALBUMIN 1.9 g/dL (3.5-5.0); BILIRUBIN,TOTAL 0.7 mg/dL (0.2-1.0)
[2017-09-30] MEDS ORDERED: IOPAMIDOL-370 75 ML VIAL IV ONE (03:24)
[2017-09-30] MEDS ORDERED: CEFTRIAXONE SODIUM 2 GM VIAL ONE (05:00)
[2017-09-30] MEDS ORDERED: SODIUM CHLORIDE 0.9% 1000ML 1,000 ML IV ONE (06:34)
[2017-09-30] MEDS ORDERED: MEROPENEM 500 MG VIAL ONE (06:42)
[2017-09-30] MEDS ORDERED: MORPHINE SULFATE 2 MG/ML 1ML SYG ONE (06:42)
[2017-09-30 07:33] VITALS: BP 134/70
[2017-09-30 12:18] VITALS: BP 122/54
[2017-09-30 13:50] VITALS: BP 120/76
[2017-09-30] MEDS ORDERED: CLONIDINE HCL 0.1 MG TABLET PO PRN (14:00)
[2017-09-30] MEDS ORDERED: POTASSIUM CHLORIDE 20MEQ/100ML 100 ML IV PRN (14:00)
[2017-09-30] MEDS ORDERED: ACETAMINOPHEN 325 MG TAB PO PRN ×2 (14:00)
[2017-09-30] MEDS ORDERED: GLUCAGON 1MG KIT 1 MG ML IM PRN (14:00)
[2017-09-30] MEDS ORDERED: POTASSIUM CHLORIDE 10% ELIXIR 20 MEQ/15 ML UDCUP PO PRN (14:00)
[2017-09-30] MEDS ORDERED: ONDANSETRON HCL MDV 20ML 2 MG/ML VIAL IVP PRN (14:00)
[2017-09-30] MEDS ORDERED: LIDOCAINE HCL-MPF 1% 2ML VIAL IJ PRN (14:00)
[2017-09-30] MEDS ORDERED: DEXTROSE 50%-WATER 50 ML DISP.SYRIN IV PRN (14:00)
[2017-09-30] MEDS ORDERED: POTASSIUM CHLORIDE 20 MEQ ERTAB PO PRN (14:00)
[2017-09-30] MEDS ORDERED: IPRATROPIUM/ALBUTEROL SULFATE 3 ML SOLUTION IH PRN (15:31)
[2017-09-30] MEDS: SODIUM CHLORIDE 0.9% 1000ML 1,000 ML IV SCH (15:37)
[2017-09-30] MEDS: MEROPENEM 500 MG VIAL IVP SCH ×2 (15:37→22:49)
[2017-09-30] MEDS: MORPHINE SULFATE 2 MG/ML 1ML SYG IVP PRN (15:56)
[2017-09-30 16:00] VITALS: BP 112/71
[2017-09-30] MEDS ORDERED: INSULIN R NPO SS1 SQ SCH (18:00)
[2017-09-30] MEDS: FAMOTIDINE/PF 20 MG/2 ML VIAL IV SCH (21:26)
[2017-09-30 22:22] VITALS: BP 125/67
[2017-10-01 00:48] VITALS: BP 130/64
[2017-10-01] MEDS: MORPHINE SULFATE 2 MG/ML 1ML SYG IVP PRN ×3 (02:45→21:29)
[2017-10-01 04:45] VITALS: BP 118/71
[2017-10-01 05:26] LABS: HEMATOCRIT 31.4 % (42-54); MEAN CORPUSCULAR HEMOGLOBIN 28.4 pg (27.0-33.0); MEAN CORPUSCULAR HGB CONC 33.5 g/dL (32.0-36.0); MEAN CORPUSCULAR VOLUME 84.7 fL (79-99); PLATELET COUNT (AUTO) 147 K/uL (130-400); RED BLOOD CELL COUNT(AUTO) 3.71 MIL/uL (4.50-6.20); RED CELL DISTRIBUTION WIDTH 16.4 % (11.0-15.5); WHITE BLOOD COUNT (AUTO) 7.6 K/uL (4.8-10.8)
[2017-10-01 05:38] LABS: INR 1.18 (0.85-1.15); PROTHROMBIN TIME 12.3 SEC (9.6-11.6)
[2017-10-01 05:40] LABS: CREATININE 0.8 mg/dL (0.5-1.5); POTASSIUM 3.9 mmol/L (3.5-5.1)
[2017-10-01] MEDS: INSULIN HUMULIN R 100 UNIT/ML 3ML SQ SCH ×4 (05:58→21:00)
[2017-10-01] MEDS: MEROPENEM 500 MG VIAL IVP SCH ×3 (05:59→23:58)
[2017-10-01] MEDS: SODIUM CHLORIDE 0.9% 1000ML 1,000 ML IV SCH (05:59)
[2017-10-01] MEDS ORDERED: FLU VACC QS2017-18 36MOS UP/PF 60 MCG/0.5 ML ML IM NR (06:45)
[2017-10-01 07:00] VITALS: BP 122/66
[2017-10-01] MEDS: FAMOTIDINE/PF 20 MG/2 ML VIAL IV SCH ×2 (09:48→21:29)
[2017-10-01 12:00] VITALS: BP 136/78
[2017-10-01 16:00] VITALS: BP 123/71
[2017-10-01 20:58] VITALS: BP 159/80
[2017-10-02 00:17] VITALS: BP 117/70
[2017-10-02] MEDS: MORPHINE SULFATE 2 MG/ML 1ML SYG IVP PRN ×4 (03:43→22:45)
[2017-10-02 04:28] VITALS: BP 117/64
[2017-10-02 07:00] VITALS: BP 135/76
[2017-10-02] MEDS: INSULIN HUMULIN R 100 UNIT/ML 3ML SQ SCH ×4 (07:30→21:00)
[2017-10-02] MEDS: FAMOTIDINE/PF 20 MG/2 ML VIAL IV SCH ×2 (09:00→21:00)
[2017-10-02] MEDS: MEROPENEM 500 MG VIAL IVP SCH ×3 (09:25→22:41)
[2017-10-02 11:00] VITALS: BP 106/66
[2017-10-02 16:00] VITALS: BP 129/79
[2017-10-02 20:12] VITALS: BP 119/77
[2017-10-03 00:24] VITALS: BP 117/72
[2017-10-03] MEDS: MORPHINE SULFATE 2 MG/ML 1ML SYG IVP PRN ×3 (05:02→23:15)
[2017-10-03] MEDS: INSULIN HUMULIN R 100 UNIT/ML 3ML SQ SCH ×4 (06:21→21:00)
[2017-10-03 06:22] VITALS: BP 124/72
[2017-10-03] MEDS: MEROPENEM 500 MG VIAL IVP SCH ×3 (06:25→23:14)
[2017-10-03 08:00] VITALS: BP 118/69
[2017-10-03] MEDS ORDERED: ACETAMINOPHEN-CODEINE 300/30MG TAB PO PRN ×2 (08:45)
[2017-10-03] MEDS: FAMOTIDINE/PF 20 MG/2 ML VIAL IV SCH ×2 (09:00→21:00)
[2017-10-03] MEDS: SPIRONOLACTONE 25 MG TAB PO SCH (09:38)
[2017-10-03 11:00] VITALS: BP 133/82
[2017-10-03 16:00] VITALS: BP 133/58
[2017-10-03] MEDS: FUROSEMIDE 80 MG TABLET PO SCH (17:59)
[2017-10-03 19:56] LABS: APPEARANCE,URINE Clear (CLEAR); BILIRUBIN,URINE Negative (NEGATIVE); COLOR,URINE Yellow (YELLOW); GLUCOSE, URINE (UA) Negative (NEGATIVE); KETONES,URINE Negative (NEGATIVE); LEUKOCYTE ESTERASE ,URINE Trace (NEGATIVE); NITRATE,URINE Negative (NEGATIVE); OCCULT BLOOD,URINE Negative (NEGATIVE); PH,URINE 5.5 (5.0-8.0); PROTEIN,URINE Negative (NEGATIVE); UROBILINOGEN,URINE 0.2 mg/dL (0.2-1.0)
[2017-10-03 20:04] LABS: RBC,URINE 0-1 /HPF (0-1)
[2017-10-03 20:05] LABS: BACTERIA,URINE Rare /HPF (None Seen); SQUAMOUS EPITHELIAL CELL,UR Rare /HPF (0-2); YEAST,URINE BUDDING Rare /HPF (None Seen)
[2017-10-03 20:53] VITALS: BP 128/62
[2017-10-04 00:58] VITALS: BP 125/72
[2017-10-04 04:38] VITALS: BP 113/68
[2017-10-04] MEDS: MEROPENEM 500 MG VIAL IVP SCH ×3 (05:24→23:25)
[2017-10-04 05:32] LABS: MEAN CORPUSCULAR HEMOGLOBIN 29.1 pg (27.0-33.0); MEAN CORPUSCULAR HGB CONC 34.7 g/dL (32.0-36.0); MEAN CORPUSCULAR VOLUME 83.9 fL (79-99); PLATELET COUNT (AUTO) 140 K/uL (130-400); RED BLOOD CELL COUNT(AUTO) 3.81 MIL/uL (4.50-6.20); RED CELL DISTRIBUTION WIDTH 16.3 % (11.0-15.5)
[2017-10-04 05:52] LABS: CREATININE 0.9 mg/dL (0.5-1.5)
[2017-10-04] MEDS: INSULIN HUMULIN R 100 UNIT/ML 3ML SQ SCH ×4 (06:22→20:36)
[2017-10-04 08:05] VITALS: BP 102/66
[2017-10-04] MEDS: SPIRONOLACTONE 25 MG TAB PO SCH (08:36)
[2017-10-04] MEDS: FUROSEMIDE 80 MG TABLET PO SCH ×2 (08:36→17:34)
[2017-10-04] MEDS: FAMOTIDINE/PF 20 MG/2 ML VIAL IV SCH ×2 (08:36→20:36)
[2017-10-04] MEDS: MORPHINE SULFATE 2 MG/ML 1ML SYG IVP PRN ×3 (08:37→21:58)
[2017-10-04 13:24] VITALS: BP 120/69
[2017-10-04 17:21] VITALS: BP 116/54
[2017-10-04 20:00] VITALS: BP 112/66
[2017-10-05] VITALS: BP 148/76
[2017-10-05 04:00] VITALS: BP 136/78
[2017-10-05] MEDS: MEROPENEM 500 MG VIAL IVP SCH ×2 (06:12→15:11)
[2017-10-05] MEDS: MORPHINE SULFATE 2 MG/ML 1ML SYG IVP PRN ×3 (06:17→18:56)
[2017-10-05] MEDS: INSULIN HUMULIN R 100 UNIT/ML 3ML SQ SCH ×3 (06:51→16:30)
[2017-10-05 08:00] VITALS: BP 124/71
[2017-10-05] MEDS: FUROSEMIDE 80 MG TABLET PO SCH ×2 (08:37→16:31)
[2017-10-05] MEDS: SPIRONOLACTONE 25 MG TAB PO SCH (08:38)
[2017-10-05] MEDS: FAMOTIDINE/PF 20 MG/2 ML VIAL IV SCH (08:38)
[2017-10-05] MEDS ORDERED: AMOX-426 PO (10:47)
[2017-10-05] MEDS ORDERED: TRAM50TA2 PO (10:47)
[2017-10-05 11:42] VITALS: BP 113/70
[2017-10-05 15:43] VITALS: BP 131/72
[2017-11-13] MEDS ORDERED: SPIR25TA4 PO (09:22)
== END 2017-10-05 19:50 | disposition home or self-care (01) | DRG 920 ==
LOC: EDH 01:51 → EDHIP 05:37 → 3DH 13:34
PROVIDERS: ADMIT Family Medicine; ATTEND Family Medicine
DX: L76.34 Postprocedural seroma of skin and subcutaneous tissue following other procedure (principal); E44.1 Mild protein-calorie malnutrition; K74.60 Unspecified cirrhosis of liver; E66.01 Morbid (severe) obesity due to excess calories; E11.9 Type 2 diabetes mellitus without complications; D64.9 Anemia, unspecified; E78.5 Hyperlipidemia, unspecified; Z68.43 Body mass index [BMI] 50.0-59.9, adult; K80.20 Calculus of gallbladder without cholecystitis without obstruction; I10 Essential (primary) hypertension; G47.33 Obstructive sleep apnea (adult) (pediatric); F12.90 Cannabis use, unspecified, uncomplicated; J45.909 Unspecified asthma, uncomplicated; K46.9 Unspecified abdominal hernia without obstruction or gangrene; Y83.8 Other surgical procedures as the cause of abnormal reaction of the patient, or of later complication, without mention of misadventure at the time of the procedure; Y82.8 Other medical devices associated with adverse incidents; Z87.81 Personal history of (healed) traumatic fracture
CPT/HCPCS: 36415; 74177; 76705; 80048; 80053; 81001; 82150; 82948; 83605; 83690; 85025; 85027; 85610; 87040; 93005; 94640; 94664; A4218; A5061; G0008; J0696; J2185; J3490; J7030; Q2038; Q9967

== ENCOUNTER 2017-11-04 12:04 | Inpatient (IN) | payer OTHER, MEDICARE ==
[~2017-11-04] VITALS: Ht 170.2 cm; Wt 177.4 kg
[~2017-11-04 12:04] MED LIST changes: +AMOX-426 PO; -SPIR100T3 PO; +SPIR100T5 PO; +TRAM50TA2 PO
[2017-11-04] MEDS ORDERED: CEFTRIAXONE SODIUM 2 GM VIAL ONE (12:35)
[2017-11-04] MEDS ORDERED: ALBUMIN (HUMAN) 25% 50 ML IV ONE (12:36)
[2017-11-04] MEDS ORDERED: FUROSEMIDE 10 MG/ML 4ML VIAL ONE ×2 (12:36)
[2017-11-04 12:56] LABS: BASOPHILS % (AUTO) 0.4 % (0.0-5.0); EOSINOPHILS % (AUTO) 1.6 % (0.0-8.0); HEMATOCRIT 28.8 % (42-54); LYMPHOCYTES % (AUTO) 15.6 % (21.0-51.0); MEAN CORPUSCULAR HEMOGLOBIN 27.8 pg (27.0-33.0); MEAN CORPUSCULAR HGB CONC 33.2 g/dL (32.0-36.0); MEAN CORPUSCULAR VOLUME 83.9 fL (79-99); MONOCYTES % (AUTO) 14.7 % (3.0-13.0); NEUTROPHILS % (AUTO) 67.7 % (40.0-77.0); PLATELET COUNT (AUTO) 185 K/uL (130-400); RED BLOOD CELL COUNT(AUTO) 3.43 MIL/uL (4.50-6.20); WHITE BLOOD COUNT (AUTO) 6.7 K/uL (4.8-10.8)
[2017-11-04 13:06] LABS: CREATININE 0.8 mg/dL (0.5-1.5); POTASSIUM 4.2 mmol/L (3.5-5.1)
[2017-11-04 13:10] LABS: BILIRUBIN,TOTAL 1.1 mg/dL (0.2-1.0)
[2017-11-04 13:11] LABS: ALBUMIN 1.6 g/dL (3.5-5.0); BILIRUBIN,DIRECT 0.5 mg/dL (0.0-0.3); TOTAL PROTEIN, SERUM 7.5 g/dL (6.0-8.3)
[2017-11-04 13:26] LABS: INR 1.2 (0.85-1.15); PARTIAL THROMBOPLASTIN TIME 32.3 SEC (26.3-35.5); PROTHROMBIN TIME 12.6 SEC (9.6-11.6)
[2017-11-04 13:55] LABS: B-TYPE NATRIURETIC PEPTIDE 17 pg/mL (0-100)
[2017-11-04 13:55] LABS: AMPHET/METH SCREEN,URINE NEGATIVE (NEGATIVE); BARBITURATE SCREEN, URINE NEGATIVE (NEGATIVE); BENZODIAZEPINES SCREEN,URINE NEGATIVE (NEGATIVE); CANNABINOID SCREEN,URINE POSITIVE (NEGATIVE); COCAINE SCREEN,URINE POSITIVE (NEGATIVE); OPIATE SCREEN,URINE NEGATIVE (NEGATIVE); PHENCYCLIDINE SCREEN,URINE NEGATIVE (NEGATIVE)
[2017-11-04] MEDS ORDERED: CEFTRIAXONE 1GM/D5W 50ML 50 ML IV SCH (23:30)
[2017-11-05] VITALS (7 sets, daily range): BP systolic 105–143; BP diastolic 60–83
[2017-11-05] MEDS: CEFTRIAXONE SODIUM 1 GM IVP SCH (02:00)
[2017-11-05] MEDS ORDERED: ONDANSETRON HCL MDV 20ML 2 MG/ML VIAL IVP PRN (03:45)
[2017-11-05] MEDS ORDERED: LACTULOSE 20 GM/30 ML UDCUP PO PRN (03:45)
[2017-11-05] MEDS ORDERED: MORPHINE SULFATE 2 MG/ML 1ML SYG IVP PRN (03:45)
[2017-11-05] MEDS ORDERED: CLONIDINE HCL 0.1 MG TABLET PO PRN (03:45)
[2017-11-05] MEDS: PANTOPRAZOLE SODIUM 40 MG TABLET.DR PO SCH (09:00)
[2017-11-05] MEDS ORDERED: FUROSEMIDE 10 MG/ML 4ML VIAL IV SCH (09:00)
[2017-11-05] MEDS ORDERED: DEXTROSE 50%-WATER 50 ML DISP.SYRIN IV PRN (09:45)
[2017-11-05] MEDS ORDERED: GLUCAGON 1MG KIT 1 MG ML IM PRN (09:45)
[2017-11-05] MEDS: INSULIN HUMULIN R 100 UNIT/ML 3ML SQ SCH ×3 (11:30→21:00)
[2017-11-05] MEDS: FUROSEMIDE 10 MG/ML 4ML VIAL IV SCH (21:37)
[2017-11-06] MEDS: SODIUM CHLORIDE 0.9% 10 ML VIAL IV PRN ×2 (02:46→20:13)
[2017-11-06] MEDS: CEFTRIAXONE SODIUM 1 GM IVP SCH (02:46)
[2017-11-06 04:10] VITALS: BP 111/65
[2017-11-06] MEDS: INSULIN HUMULIN R 100 UNIT/ML 3ML SQ SCH ×4 (06:14→21:00)
[2017-11-06 06:31] LABS: HEMATOCRIT 29.5 % (42-54); MEAN CORPUSCULAR HEMOGLOBIN 28.6 pg (27.0-33.0); MEAN CORPUSCULAR HGB CONC 33.9 g/dL (32.0-36.0); MEAN CORPUSCULAR VOLUME 84.4 fL (79-99); PLATELET COUNT (AUTO) 205 K/uL (130-400); RED BLOOD CELL COUNT(AUTO) 3.49 MIL/uL (4.50-6.20); RED CELL DISTRIBUTION WIDTH 18.8 % (11.0-15.5); WHITE BLOOD COUNT (AUTO) 9.1 K/uL (4.8-10.8)
[2017-11-06 06:38] LABS: POTASSIUM 4.2 mmol/L (3.5-5.1)
[2017-11-06 07:51] VITALS: BP 127/73
[2017-11-06] MEDS: FUROSEMIDE 10 MG/ML 4ML VIAL IV SCH ×2 (08:22→20:13)
[2017-11-06] MEDS: PANTOPRAZOLE SODIUM 40 MG TABLET.DR PO SCH (08:23)
[2017-11-06] MEDS: ALBUMIN (HUMAN) 25% 200 ML IV SCH (11:20)
[2017-11-06 12:00] VITALS: BP 131/64
[2017-11-06] MEDS: MORPHINE SULFATE 4 MG/1ML SYG IVP PRN ×2 (15:13→20:14)
[2017-11-06 16:00] VITALS: BP 124/68
[2017-11-06 19:40] VITALS: BP 127/65
[2017-11-06 23:50] VITALS: BP 122/60
[2017-11-07] MEDS: MORPHINE SULFATE 4 MG/1ML SYG IVP PRN ×4 (00:26→21:27)
[2017-11-07] MEDS: CEFTRIAXONE SODIUM 1 GM IVP SCH (01:36)
[2017-11-07] MEDS: SODIUM CHLORIDE 0.9% 10 ML VIAL IV PRN (01:37)
[2017-11-07 03:59] VITALS: BP 108/58
[2017-11-07] MEDS: INSULIN HUMULIN R 100 UNIT/ML 3ML SQ SCH ×4 (06:14→21:00)
[2017-11-07 08:00] VITALS: BP_SYST 116; BP_SYST 118; BP_DIAS 66; BP_DIAS 70
[2017-11-07] MEDS: ALBUMIN (HUMAN) 25% 200 ML IV SCH (10:30)
[2017-11-07] MEDS: PANTOPRAZOLE SODIUM 40 MG TABLET.DR PO SCH (10:31)
[2017-11-07] MEDS: FUROSEMIDE 10 MG/ML 4ML VIAL IV SCH ×2 (10:31→21:26)
[2017-11-07 10:55] LABS: HEMATOCRIT 27.3 % (42-54); MEAN CORPUSCULAR HEMOGLOBIN 28.7 pg (27.0-33.0); MEAN CORPUSCULAR HGB CONC 33.7 g/dL (32.0-36.0); MEAN CORPUSCULAR VOLUME 85.1 fL (79-99); NUCLEATED RED BLOOD CELLS 0.1 % (0.0-0.19); PLATELET COUNT (AUTO) 168 K/uL (130-400); RED CELL DISTRIBUTION WIDTH 18.4 % (11.0-15.5); WHITE BLOOD COUNT (AUTO) 7.3 K/uL (4.8-10.8)
[2017-11-07 12:00] VITALS: BP 135/75
[2017-11-07 16:00] VITALS: BP 131/71
[2017-11-07 19:30] VITALS: BP 136/82
[2017-11-07 23:25] VITALS: BP 125/69
[2017-11-08] MEDS: CEFTRIAXONE SODIUM 1 GM IVP SCH (01:37)
[2017-11-08] MEDS: MORPHINE SULFATE 4 MG/1ML SYG IVP PRN ×4 (01:38→20:50)
[2017-11-08 03:35] VITALS: BP 130/76
[2017-11-08] MEDS: INSULIN HUMULIN R 100 UNIT/ML 3ML SQ SCH ×4 (06:04→20:51)
[2017-11-08 07:00] VITALS: BP 114/63
[2017-11-08 09:32] LABS: HEMATOCRIT 29.2 % (42-54); MEAN CORPUSCULAR HEMOGLOBIN 27.5 pg (27.0-33.0); MEAN CORPUSCULAR HGB CONC 32.7 g/dL (32.0-36.0); MEAN CORPUSCULAR VOLUME 84.2 fL (79-99); PLATELET COUNT (AUTO) 186 K/uL (130-400); RED BLOOD CELL COUNT(AUTO) 3.47 MIL/uL (4.50-6.20); RED CELL DISTRIBUTION WIDTH 18.4 % (11.0-15.5); WHITE BLOOD COUNT (AUTO) 12.6 K/uL (4.8-10.8)
[2017-11-08 09:39] LABS: CREATININE 1.2 mg/dL (0.5-1.5)
[2017-11-08] MEDS: PANTOPRAZOLE SODIUM 40 MG TABLET.DR PO SCH (10:01)
[2017-11-08] MEDS: FUROSEMIDE 10 MG/ML 4ML VIAL IV SCH ×2 (10:02→20:49)
[2017-11-08 11:00] VITALS: BP 149/66
[2017-11-08 15:00] VITALS: BP 128/71
[2017-11-08 19:35] VITALS: BP 134/72
[2017-11-08 23:30] VITALS: BP 101/51
[2017-11-09] VITALS (12 sets, daily range): BP systolic 100–133; BP diastolic 55–85
[2017-11-09] MEDS: MORPHINE SULFATE 4 MG/1ML SYG IVP PRN ×3 (00:48→22:36)
[2017-11-09] MEDS: CEFTRIAXONE SODIUM 1 GM IVP SCH (02:06)
[2017-11-09] MEDS: INSULIN HUMULIN R 100 UNIT/ML 3ML SQ SCH ×4 (06:50→21:00)
[2017-11-09] MEDS: PANTOPRAZOLE SODIUM 40 MG TABLET.DR PO SCH (10:33)
[2017-11-09] MEDS: FUROSEMIDE 10 MG/ML 4ML VIAL IV SCH ×2 (10:33→22:33)
[2017-11-09] MEDS: TRAMADOL HCL 50 MG TABLET PO PRN (10:35)
[2017-11-09] MEDS ORDERED: ALBUMIN (HUMAN) 25% 200 ML IV SCH (11:06)
[2017-11-09 11:48] LABS: APPEARANCE BODY FLUID SLIGHTLY CLOUDY (CLEAR); COLOR,BODY FLUID YELLOW (LT YELLOW); SPECIMENTYPE,BODY FLUID ASCITES; TOTAL VOLUME,BODY FLUID 10000 mL
[2017-11-09 11:49] LABS: BODY FLUID RBC 898 /cu. mm.; BODY FLUID WBC 4529 /cu. mm.
[2017-11-09 12:18] LABS: BF LYMPHOCYTE 10 %; BF MONOCYTE 10 %
[2017-11-10] VITALS (12 sets, daily range): BP systolic 106–140; BP diastolic 52–65
[2017-11-10] MEDS: CEFTRIAXONE SODIUM 1 GM IVP SCH (02:43)
[2017-11-10] MEDS: MORPHINE SULFATE 4 MG/1ML SYG IVP PRN (02:52)
[2017-11-10 04:14] LABS: HEMATOCRIT 27.5 % (42-54); MEAN CORPUSCULAR HEMOGLOBIN 27.4 pg (27.0-33.0); MEAN CORPUSCULAR HGB CONC 32.7 g/dL (32.0-36.0); MEAN CORPUSCULAR VOLUME 83.7 fL (79-99); PLATELET COUNT (AUTO) 166 K/uL (130-400); RED BLOOD CELL COUNT(AUTO) 3.29 MIL/uL (4.50-6.20); RED CELL DISTRIBUTION WIDTH 19.2 % (11.0-15.5); WHITE BLOOD COUNT (AUTO) 13.1 K/uL (4.8-10.8)
[2017-11-10] MEDS: INSULIN HUMULIN R 100 UNIT/ML 3ML SQ SCH ×4 (06:46→21:00)
[2017-11-10] MEDS: PANTOPRAZOLE SODIUM 40 MG TABLET.DR PO SCH (09:55)
[2017-11-10] MEDS: FUROSEMIDE 10 MG/ML 4ML VIAL IV SCH ×2 (09:55→21:39)
[2017-11-10] MEDS ORDERED: LIDOCAINE HCL 1% 20 ML VIAL INJ SCH (10:00)
[2017-11-11] MEDS: MORPHINE SULFATE 4 MG/1ML SYG IVP PRN ×4 (01:13→14:41)
[2017-11-11] MEDS: CEFTRIAXONE SODIUM 1 GM IVP SCH (01:13)
[2017-11-11 03:00] VITALS: BP 147/82
[2017-11-11 03:40] LABS: HEMATOCRIT 26.7 % (42-54); MEAN CORPUSCULAR HEMOGLOBIN 28.1 pg (27.0-33.0); MEAN CORPUSCULAR HGB CONC 33.8 g/dL (32.0-36.0); MEAN CORPUSCULAR VOLUME 83.1 fL (79-99); PLATELET COUNT (AUTO) 163 K/uL (130-400); RED BLOOD CELL COUNT(AUTO) 3.21 MIL/uL (4.50-6.20); RED CELL DISTRIBUTION WIDTH 18.7 % (11.0-15.5); WHITE BLOOD COUNT (AUTO) 10.3 K/uL (4.8-10.8)
[2017-11-11] MEDS: INSULIN HUMULIN R 100 UNIT/ML 3ML SQ SCH ×4 (07:30→21:00)
[2017-11-11 08:00] VITALS: BP 140/87
[2017-11-11 10:00] LABS: POTASSIUM 3.5 mmol/L (3.5-5.1)
[2017-11-11 11:00] VITALS: BP 130/63
[2017-11-11] MEDS: FUROSEMIDE 10 MG/ML 4ML VIAL IV SCH ×2 (11:15→21:37)
[2017-11-11] MEDS: PANTOPRAZOLE SODIUM 40 MG TABLET.DR PO SCH (11:15)
[2017-11-11 16:00] VITALS: BP 126/83
[2017-11-11 19:44] VITALS: BP 126/73
[2017-11-11 23:36] VITALS: BP 133/66
[2017-11-12] MEDS: CEFTRIAXONE SODIUM 1 GM IVP SCH (03:19)
[2017-11-12 04:00] VITALS: BP 136/60
[2017-11-12] MEDS: INSULIN HUMULIN R 100 UNIT/ML 3ML SQ SCH ×4 (06:21→21:00)
[2017-11-12 07:58] VITALS: BP 136/71
[2017-11-12] MEDS: PANTOPRAZOLE SODIUM 40 MG TABLET.DR PO SCH (09:19)
[2017-11-12] MEDS: FUROSEMIDE 10 MG/ML 4ML VIAL IV SCH ×2 (09:19→19:58)
[2017-11-12] MEDS: TRAMADOL HCL 50 MG TABLET PO PRN ×2 (09:33→21:30)
[2017-11-12 09:53] LABS: POTASSIUM 3.5 mmol/L (3.5-5.1)
[2017-11-12 11:00] VITALS: BP 141/67
[2017-11-12 16:00] VITALS: BP 125/79
[2017-11-12 19:25] VITALS: BP 119/78
[2017-11-12 23:15] VITALS: BP 119/59
[2017-11-13] MEDS: CEFTRIAXONE SODIUM 1 GM IVP SCH (02:20)
[2017-11-13 03:20] VITALS: BP 146/60
[2017-11-13] MEDS: INSULIN HUMULIN R 100 UNIT/ML 3ML SQ SCH (06:01)
[2017-11-13 08:00] VITALS: BP 125/60
[2017-11-13] MEDS ORDERED: SPIR25TA6 PO (09:22)
[2017-11-13] MEDS ORDERED: FURO40TA7 PO (09:22)
[2017-11-13] MEDS: FUROSEMIDE 10 MG/ML 4ML VIAL IV SCH (10:46)
[2017-11-13] MEDS: PANTOPRAZOLE SODIUM 40 MG TABLET.DR PO SCH (10:47)
== END 2017-11-13 16:20 | disposition home or self-care (01) | DRG 433 ==
LOC: EDH 12:04 → OBSVTOIN 16:00 → EDHIP 16:00 → 3AH 22:51
PROVIDERS: ADMIT Family Medicine; ATTEND Family Medicine
PROC: 0W9G3ZZ Drainage of Peritoneal Cavity, Percutaneous Approach (ICD-10-PCS; principal; 2017-11-09)
DX: K74.60 Unspecified cirrhosis of liver (principal); R18.8 Other ascites; E66.01 Morbid (severe) obesity due to excess calories; E44.1 Mild protein-calorie malnutrition; Z68.44 Body mass index [BMI] 60.0-69.9, adult; D64.9 Anemia, unspecified; E11.9 Type 2 diabetes mellitus without complications; F12.90 Cannabis use, unspecified, uncomplicated; F14.90 Cocaine use, unspecified, uncomplicated; G47.33 Obstructive sleep apnea (adult) (pediatric); I10 Essential (primary) hypertension; G89.4 Chronic pain syndrome; J45.909 Unspecified asthma, uncomplicated
CPT/HCPCS: 36415; 49083; 71045; 74176; 80048; 80076; 80305; 82042; 82550; 82948; 83690; 83880; 84484; 85025; 85027; 85610; 85730; 87040; 87071; 87076; 87205; 89051; 93005; A4218; A5061; J0696; J1940; J2270; P9046; P9047

== ENCOUNTER 2017-11-25 12:52 | Inpatient (IN) | payer OTHER, MEDICARE ==
[~2017-11-25] VITALS: Ht 170.2 cm; Wt 184.6 kg
[~2017-11-25 12:52] MED LIST changes: -ALBUHFA IH; -AMOX-426 PO; +FURO40TA7 PO; -FURO80TA3 PO; -METF500T6 PO; -SPIR100T5 PO; +SPIR25TA6 PO; -TRAM50TA2 PO
[2017-11-25 13:45] LABS: EOSINOPHILS % (AUTO) 2.6 % (0.0-8.0); HEMATOCRIT 25.6 % (42-54); LYMPHOCYTES % (AUTO) 15.3 % (21.0-51.0); MEAN CORPUSCULAR HEMOGLOBIN 28.4 pg (27.0-33.0); MEAN CORPUSCULAR HGB CONC 33.3 g/dL (32.0-36.0); MEAN CORPUSCULAR VOLUME 85.3 fL (79-99); NEUTROPHILS % (AUTO) 68.1 % (40.0-77.0); PLATELET COUNT (AUTO) 154 K/uL (130-400); RED CELL DISTRIBUTION WIDTH 20.5 % (11.0-15.5); WHITE BLOOD COUNT (AUTO) 5.8 K/uL (4.8-10.8)
[2017-11-25 14:40] LABS: CREATININE 1.7 mg/dL (0.5-1.5); POTASSIUM 5.1 mmol/L (3.5-5.1)
[2017-11-25 14:53] LABS: ALBUMIN 1.6 g/dL (3.5-5.0); BILIRUBIN,TOTAL 0.7 mg/dL (0.2-1.0); CREATINE KINASE MB 0.7 ng/mL (0.5-3.6); TOTAL PROTEIN, SERUM 7.2 g/dL (6.0-8.3)
[2017-11-25] MEDS ORDERED: ACETAMINOPHEN 325 MG TAB PO PRN ×2 (16:30)
[2017-11-25] MEDS ORDERED: ONDANSETRON HCL MDV 20ML 2 MG/ML VIAL IVP PRN (16:30)
[2017-11-25] MEDS ORDERED: SODIUM CHLORIDE 0.9% 10 ML VIAL IVP SCH (16:30)
[2017-11-25] MEDS ORDERED: ALBUMIN (HUMAN) 25% 100 ML IV SCH (16:30)
[2017-11-25] MEDS ORDERED: MORPHINE SULFATE 4 MG/1ML SYG IVP PRN ×2 (16:30)
[2017-11-25 18:26] LABS: APPEARANCE,URINE Clear (CLEAR); BILIRUBIN,URINE Negative (NEGATIVE); COLOR,URINE Yellow (YELLOW); GLUCOSE, URINE (UA) Negative (NEGATIVE); KETONES,URINE Negative (NEGATIVE); LEUKOCYTE ESTERASE ,URINE Small (NEGATIVE); NITRATE,URINE Negative (NEGATIVE); OCCULT BLOOD,URINE Negative (NEGATIVE); PROTEIN,URINE Negative (NEGATIVE)
[2017-11-25 18:41] LABS: BACTERIA,URINE Rare /HPF (None Seen); MUCUS,URINE Moderate LPF (None Seen); RBC,URINE None Seen /HPF (0-1); SQUAMOUS EPITHELIAL CELL,UR 0-2 /HPF (0-2); WBC,URINE 0-1 /HPF (0-1)
[2017-11-25 19:00] VITALS: BP 101/42
[2017-11-25 20:00] VITALS: BP 118/60
[2017-11-25] MEDS: ALBUMIN (HUMAN) 25% 100 ML IV SCH (21:48)
[2017-11-26] VITALS: BP 109/58
[2017-11-26 04:00] VITALS: BP 103/53
[2017-11-26] MEDS: ALBUMIN (HUMAN) 25% 100 ML IV SCH (04:24)
[2017-11-26 05:26] LABS: HEMATOCRIT 22.7 % (42-54); MEAN CORPUSCULAR HEMOGLOBIN 28.3 pg (27.0-33.0); MEAN CORPUSCULAR HGB CONC 33.3 g/dL (32.0-36.0); PLATELET COUNT (AUTO) 130 K/uL (130-400); RED BLOOD CELL COUNT(AUTO) 2.67 MIL/uL (4.50-6.20); RED CELL DISTRIBUTION WIDTH 20.6 % (11.0-15.5); WHITE BLOOD COUNT (AUTO) 4.9 K/uL (4.8-10.8)
[2017-11-26 05:35] LABS: CREATININE 1.4 mg/dL (0.5-1.5); POTASSIUM 4.8 mmol/L (3.5-5.1)
[2017-11-26 08:00] VITALS: BP 97/50
[2017-11-26 10:22] LABS: INR 1.17 (0.85-1.15); PARTIAL THROMBOPLASTIN TIME 31.7 SEC (26.3-35.5); PROTHROMBIN TIME 12.2 SEC (9.6-11.6)
[2017-11-26 11:45] VITALS: BP 116/54
[2017-11-26 16:00] VITALS: BP 132/81
[2017-11-26 20:00] VITALS: BP 100/60
[2017-11-27 00:40] VITALS: BP 119/55
[2017-11-27 03:50] VITALS: BP 116/52
[2017-11-27 08:00] VITALS: BP 117/70
[2017-11-27 11:00] VITALS: BP 122/57
[2017-11-27 16:00] VITALS: BP 101/54
[2017-11-27 20:00] VITALS: BP 128/58
[2017-11-28] VITALS (10 sets, daily range): BP systolic 107–150; BP diastolic 52–92
[2017-11-28] MEDS ORDERED: GUAIFENESIN-DM 200/20 MG 10 ML PO PRN (10:30)
[2017-11-28] MEDS ORDERED: MORPHINE SULFATE 2 MG/ML 1ML SYG IV PRN (10:30)
[2017-11-28] MEDS ORDERED: NITROGLYCERIN 0.4 MG SL TAB SL PRN (10:30)
[2017-11-28] MEDS ORDERED: HYDRALAZINE HCL 20 MG/ML VIAL IV PRN (10:30)
[2017-11-28] MEDS ORDERED: ACETAMINOPHEN 325 MG TAB PO PRN ×2 (10:30)
[2017-11-28] MEDS ORDERED: MAG HYDROX/AL HYDROX/SIMETH ES 30 ML SUSP UDCUP PO PRN (10:30)
[2017-11-28] MEDS ORDERED: LACTULOSE 20 GM/30 ML UDCUP PO PRN (10:30)
[2017-11-28] MEDS ORDERED: ONDANSETRON HCL 4 MG/2 ML VIAL IV PRN (10:30)
[2017-11-28 10:54] LABS: BASOPHILS % (AUTO) 0.7 % (0.0-5.0); EOSINOPHILS % (AUTO) 3.9 % (0.0-8.0); LYMPHOCYTES % (AUTO) 25.4 % (21.0-51.0); MEAN CORPUSCULAR HEMOGLOBIN 28.8 pg (27.0-33.0); MEAN CORPUSCULAR HGB CONC 33.3 g/dL (32.0-36.0); MEAN CORPUSCULAR VOLUME 86.6 fL (79-99); MONOCYTES % (AUTO) 13.4 % (3.0-13.0); NEUTROPHILS % (AUTO) 56.6 % (40.0-77.0); PLATELET COUNT (AUTO) 123 K/uL (130-400); RED BLOOD CELL COUNT(AUTO) 2.66 MIL/uL (4.50-6.20); RED CELL DISTRIBUTION WIDTH 21.1 % (11.0-15.5); WHITE BLOOD COUNT (AUTO) 3.3 K/uL (4.8-10.8)
[2017-11-28 11:05] LABS: CREATININE 0.9 mg/dL (0.5-1.5); POTASSIUM 4.2 mmol/L (3.5-5.1)
[2017-11-28] MEDS: INSULIN HUMULIN R 100 UNIT/ML 3ML SQ SCH ×3 (11:30→20:48)
[2017-11-28] MEDS: SPIRONOLACTONE 25 MG TAB PO SCH (12:58)
[2017-11-28] MEDS: FUROSEMIDE 40 MG TABLET PO SCH (12:59)
[2017-11-28] MEDS ORDERED: ALBUMIN (HUMAN) 25% 200 ML IV ONE (16:45)
[2017-11-28 20:09] LABS: APPEARANCE BODY FLUID CLOUDY (CLEAR); COLOR,BODY FLUID ORANGE (LT YELLOW); SPECIMENTYPE,BODY FLUID PARACENTESIS; TOTAL VOLUME,BODY FLUID 7000 mL
[2017-11-28 20:10] LABS: BODY FLUID RBC 13390 /cu. mm.; BODY FLUID WBC 116 /cu. mm.
[2017-11-28 20:34] LABS: BF LYMPHOCYTE 74 %; BF MONOCYTE 9 %
[2017-11-28] MEDS: FAMOTIDINE 20MG TAB 20 MG TAB PO SCH (21:09)
[2017-11-29 03:55] VITALS: BP 129/64
[2017-11-29] MEDS: INSULIN HUMULIN R 100 UNIT/ML 3ML SQ SCH (06:25)
[2017-11-29 09:29] VITALS: BP 124/73
[2017-11-29] MEDS: FUROSEMIDE 40 MG TABLET PO SCH (11:58)
[2017-11-29] MEDS: SPIRONOLACTONE 25 MG TAB PO SCH (11:58)
[2017-11-29] MEDS: FAMOTIDINE 20MG TAB 20 MG TAB PO SCH (11:58)
[2017-11-29 12:57] VITALS: BP 93/56
== END 2017-11-29 16:05 | disposition home or self-care (01) | DRG 433 ==
LOC: EDH 12:52 → EDHIP 15:58 → OBSVTOIN 15:58 → 3DH 19:11
PROVIDERS: ADMIT Internal Medicine; ATTEND Internal Medicine
PROC: 0W9G30Z Drainage of Peritoneal Cavity with Drainage Device, Percutaneous Approach (ICD-10-PCS; principal; 2017-11-28)
DX: K74.60 Unspecified cirrhosis of liver (principal); R18.8 Other ascites; E11.22 Type 2 diabetes mellitus with diabetic chronic kidney disease; E66.01 Morbid (severe) obesity due to excess calories; Z68.44 Body mass index [BMI] 60.0-69.9, adult; D64.9 Anemia, unspecified; G47.33 Obstructive sleep apnea (adult) (pediatric); J45.909 Unspecified asthma, uncomplicated; I12.9 Hypertensive chronic kidney disease with stage 1 through stage 4 chronic kidney disease, or unspecified chronic kidney disease; E78.5 Hyperlipidemia, unspecified; F19.90 Other psychoactive substance use, unspecified, uncomplicated; N18.2 Chronic kidney disease, stage 2 (mild)
CPT/HCPCS: 36415; 49083; 71045; 80048; 80053; 81001; 82140; 82150; 82550; 82553; 82948; 83605; 83690; 84484; 85025; 85027; 85610; 85730; 87040; 87071; 87205; 88108; 88305; 89051; 93005; P9046

== ENCOUNTER 2017-12-21 16:35 | Emergency (ER) | payer MEDICARE ==
[2017-12-21 17:04] LABS: BASOPHILS % (AUTO) 0.7 % (0.0-5.0); HEMATOCRIT 24.3 % (42-54); MEAN CORPUSCULAR HEMOGLOBIN 27.9 pg (27.0-33.0); MEAN CORPUSCULAR HGB CONC 32.8 g/dL (32.0-36.0); MONOCYTES % (AUTO) 11.1 % (3.0-13.0); NEUTROPHILS % (AUTO) 64.2 % (40.0-77.0); PLATELET COUNT (AUTO) 200 K/uL (130-400); RED BLOOD CELL COUNT(AUTO) 2.86 MIL/uL (4.50-6.20); RED CELL DISTRIBUTION WIDTH 18.9 % (11.0-15.5); WHITE BLOOD COUNT (AUTO) 6.7 K/uL (4.8-10.8)
[2017-12-21 17:11] LABS: CREATININE 0.9 mg/dL (0.5-1.5); POTASSIUM 4.3 mmol/L (3.5-5.1)
[2017-12-21 17:15] LABS: INR 1.17 (0.85-1.15); PARTIAL THROMBOPLASTIN TIME 29.5 SEC (26.3-35.5); PROTHROMBIN TIME 12.2 SEC (9.6-11.6)
[2017-12-21 17:16] LABS: ALBUMIN 1.8 g/dL (3.5-5.0); BILIRUBIN,TOTAL 0.5 mg/dL (0.2-1.0); TOTAL PROTEIN, SERUM 7.9 g/dL (6.0-8.3)
== END 2017-12-21 19:15 | disposition home or self-care (01) ==
LOC: EDH 16:35
DX: D64.9 Anemia, unspecified (principal); R79.1 Abnormal coagulation profile; E11.9 Type 2 diabetes mellitus without complications; I10 Essential (primary) hypertension; Z87.891 Personal history of nicotine dependence
CPT/HCPCS: 36415; 80053; 82270; 85025; 85610; 85730; 86850; 86900; 86901

== ENCOUNTER → 2018-01-13 | Outpatient (CLI) | payer MEDICARE ==
[~2018-01-13] MED LIST changes: +ALBUMIN (HUMAN) 25% 200 ML IV SCH
[2018-01-13 09:39] LABS: BASOPHILS % (AUTO) 0.5 % (0.0-5.0); EOSINOPHILS % (AUTO) 3.6 % (0.0-8.0); HEMATOCRIT 24.2 % (42-54); LYMPHOCYTES % (AUTO) 17.7 % (21.0-51.0); MEAN CORPUSCULAR HEMOGLOBIN 26.1 pg (27.0-33.0); MEAN CORPUSCULAR VOLUME 81.8 fL (79-99); MONOCYTES % (AUTO) 10.7 % (3.0-13.0); NEUTROPHILS % (AUTO) 67.5 % (40.0-77.0); PLATELET COUNT (AUTO) 186 K/uL (130-400); RED BLOOD CELL COUNT(AUTO) 2.95 MIL/uL (4.50-6.20); RED CELL DISTRIBUTION WIDTH 18.7 % (11.0-15.5); WHITE BLOOD COUNT (AUTO) 6.2 K/uL (4.8-10.8)
[2018-01-13 10:02] LABS: INR 1.16 (0.85-1.15); PROTHROMBIN TIME 12.1 SEC (9.6-11.6)
[2018-01-13 10:10] LABS: ALBUMIN 1.9 g/dL (3.5-5.0); BILIRUBIN,TOTAL 0.6 mg/dL (0.2-1.0); CREATININE 0.9 mg/dL (0.5-1.5); POTASSIUM 4.6 mmol/L (3.5-5.1); TOTAL PROTEIN, SERUM 8.2 g/dL (6.0-8.3)
[2018-01-13 12:00] LABS: ALBUMIN,BODY FLUID < 0.6 g/dL
[2018-01-13 12:20] LABS: APPEARANCE BODY FLUID CLEAR (CLEAR); COLOR,BODY FLUID YELLOW (LT YELLOW); SPECIMENTYPE,BODY FLUID ASCITES; TOTAL VOLUME,BODY FLUID 7500 mL
[2018-01-13 12:21] LABS: BODY FLUID RBC 1323 /cu. mm.; BODY FLUID WBC 195 /cu. mm.
[2018-01-13 12:44] LABS: BF LYMPHOCYTE 64 %; BF MESOTHELIAL 24 %; BF MONOCYTE 8 %
== END | disposition home or self-care (01) ==
LOC: RAH 09:06
PROVIDERS: ATTEND Internal Medicine Gastroenterology
DX: K70.31 Alcoholic cirrhosis of liver with ascites (principal); I12.9 Hypertensive chronic kidney disease with stage 1 through stage 4 chronic kidney disease, or unspecified chronic kidney disease; E11.22 Type 2 diabetes mellitus with diabetic chronic kidney disease; N18.2 Chronic kidney disease, stage 2 (mild); E78.5 Hyperlipidemia, unspecified; J45.909 Unspecified asthma, uncomplicated; E66.01 Morbid (severe) obesity due to excess calories; D64.9 Anemia, unspecified; G47.33 Obstructive sleep apnea (adult) (pediatric); Z68.44 Body mass index [BMI] 60.0-69.9, adult; Z79.899 Other long term (current) drug therapy; Z87.891 Personal history of nicotine dependence; Z98.890 Other specified postprocedural states; Z83.3 Family history of diabetes mellitus; Z82.49 Family history of ischemic heart disease and other diseases of the circulatory system
CPT/HCPCS: 36415; 49083; 80053; 82042; 84157; 85025; 85610; 87071; 87205; 88108; 88305; 89051; P9046

== ENCOUNTER 2018-02-21 08:19 | Day surgery (SDC) | payer MEDICARE ==
[~2018-02-21] VITALS: Ht 170.2 cm; Wt 175.9 kg
[~2018-02-21 08:19] MED LIST changes: -ALBUMIN (HUMAN) 25% 200 ML IV SCH; +SODIUM CHLORIDE 0.9% 1000ML 1,000 ML IV ONE
[2018-02-21 09:35] VITALS: BP 109/63
[2018-02-21] MEDS ORDERED: ACET325C5 PO (10:12)
[2018-02-21] MEDS ORDERED: FURO40TA5 PO (10:12)
[2018-02-21] MEDS ORDERED: SPIR50TA5 PO (10:12)
[2018-02-21] MEDS ORDERED: METF-445 PO (10:12)
[2018-02-21] MEDS ORDERED: BUDE10.2 IH (10:12)
[2018-02-21] MEDS ORDERED: FENTANYL CITRATE PF 50 MCG/1 ML 2ML VIAL ONE (10:26)
[2018-02-21] MEDS ORDERED: PROPOFOL 10 MG/ML 20ML VIAL IV ONE (10:26)
[2018-02-21 10:45] VITALS: BP 126/56
[2018-02-21 10:50] VITALS: BP 110/48
[2018-02-21 10:59] VITALS: BP 105/48
[2018-02-21 11:04] VITALS: BP 111/54
[2018-02-21 11:09] VITALS: BP 110/56
== END 2018-02-21 11:29 | disposition home or self-care (01) ==
LOC: ENDO 08:19 → DAH 08:19 → ENDO 11:29
PROVIDERS: ATTEND Internal Medicine
DX: K29.50 Unspecified chronic gastritis without bleeding (principal); D50.9 Iron deficiency anemia, unspecified; E66.01 Morbid (severe) obesity due to excess calories; Z68.44 Body mass index [BMI] 60.0-69.9, adult; Z79.899 Other long term (current) drug therapy; Z98.890 Other specified postprocedural states; F41.9 Anxiety disorder, unspecified; Z80.2 Family history of malignant neoplasm of other respiratory and intrathoracic organs; Z83.3 Family history of diabetes mellitus; Z82.49 Family history of ischemic heart disease and other diseases of the circulatory system; Z90.49 Acquired absence of other specified parts of digestive tract; K70.31 Alcoholic cirrhosis of liver with ascites; Z79.84 Long term (current) use of oral hypoglycemic drugs; E78.5 Hyperlipidemia, unspecified; G47.30 Sleep apnea, unspecified; Z87.891 Personal history of nicotine dependence; J45.909 Unspecified asthma, uncomplicated; E44.1 Mild protein-calorie malnutrition; M19.90 Unspecified osteoarthritis, unspecified site; Z88.8 Allergy status to other drugs, medicaments and biological substances; I12.9 Hypertensive chronic kidney disease with stage 1 through stage 4 chronic kidney disease, or unspecified chronic kidney disease; E11.22 Type 2 diabetes mellitus with diabetic chronic kidney disease; N18.2 Chronic kidney disease, stage 2 (mild)
CPT/HCPCS: 43239; 82948 ×2; 88305; 88312; 88342; A4606; J2704; J3010; J7030

== ENCOUNTER → 2018-04-20 | Outpatient (CLI) | payer MEDICARE ==
[~2018-04-20] MED LIST changes: +ACET325C5 PO; +BUDE10.2 IH; +FURO40TA5 PO; -FURO40TA7 PO; +METF-445 PO; -SODIUM CHLORIDE 0.9% 1000ML 1,000 ML IV ONE; -SPIR25TA6 PO; +SPIR50TA5 PO
== END | disposition home or self-care (01) ==
LOC: RAH 07:38
PROVIDERS: ATTEND Internal Medicine Gastroenterology
DX: K80.12 Calculus of gallbladder with acute and chronic cholecystitis without obstruction (principal); R18.8 Other ascites; R16.1 Splenomegaly, not elsewhere classified
CPT/HCPCS: 76700; 93975

== ENCOUNTER → 2018-04-21 | Outpatient (CLI) | payer MEDICARE ==
[~2018-04-21] MED LIST changes: +ALBUMIN (HUMAN) 25% 200 ML IV ONE; +LIDOCAINE HCL MPF 1% 5ML VIAL ONE
[2018-04-21 07:47] LABS: BASOPHILS % (AUTO) 0.6 % (0.0-5.0); EOSINOPHILS % (AUTO) 2.8 % (0.0-8.0); HEMATOCRIT 23.6 % (42-54); LYMPHOCYTES % (AUTO) 22.2 % (21.0-51.0); MEAN CORPUSCULAR HGB CONC 31.1 g/dL (32.0-36.0); MEAN CORPUSCULAR VOLUME 86.7 fL (79-99); MONOCYTES % (AUTO) 10.8 % (3.0-13.0); NEUTROPHILS % (AUTO) 63.6 % (40.0-77.0); PLATELET COUNT (AUTO) 133 K/uL (130-400); RED BLOOD CELL COUNT(AUTO) 2.72 MIL/uL (4.50-6.20); RED CELL DISTRIBUTION WIDTH 20.2 % (11.0-15.5); WHITE BLOOD COUNT (AUTO) 3.8 K/uL (4.8-10.8)
[2018-04-21 08:11] LABS: CREATININE 0.7 mg/dL (0.5-1.5); POTASSIUM 4.1 mmol/L (3.5-5.1)
[2018-04-21 08:13] LABS: INR 1.17 (0.85-1.15); PROTHROMBIN TIME 12.2 SEC (9.6-11.6)
[2018-04-21 08:16] LABS: BILIRUBIN,TOTAL 0.4 mg/dL (0.2-1.0); TOTAL PROTEIN, SERUM 8.2 g/dL (6.0-8.3)
[2018-04-21 11:42] LABS: APPEARANCE BODY FLUID CLEAR (CLEAR); BODY FLUID RBC 352 /cu. mm.; BODY FLUID WBC 178 /cu. mm.; COLOR,BODY FLUID COLORLESS (LT YELLOW); SPECIMENTYPE,BODY FLUID ASCITES; TOTAL VOLUME,BODY FLUID 4200 mL
[2018-04-21 12:00] LABS: BF LYMPHOCYTE 74 %; BF MESOTHELIAL 12 %; BF MONOCYTE 12 %
== END | disposition home or self-care (01) ==
LOC: RAH 07:24
PROVIDERS: ATTEND Internal Medicine Gastroenterology
DX: K70.31 Alcoholic cirrhosis of liver with ascites (principal); E66.01 Morbid (severe) obesity due to excess calories; J45.909 Unspecified asthma, uncomplicated; I10 Essential (primary) hypertension; E11.9 Type 2 diabetes mellitus without complications; F10.21 Alcohol dependence, in remission; F15.11 Other stimulant abuse, in remission; F41.9 Anxiety disorder, unspecified; Z79.899 Other long term (current) drug therapy; Z98.890 Other specified postprocedural states; Z82.49 Family history of ischemic heart disease and other diseases of the circulatory system; Z83.3 Family history of diabetes mellitus; Z82.5 Family history of asthma and other chronic lower respiratory diseases
CPT/HCPCS: 36415; 49083; 80053; 85025; 85610; 87071; 87205; 88108; 88184; 88185; 88305; 89051; J3490; P9046

== ENCOUNTER → 2018-07-04 | Outpatient (CLI) | payer MEDICARE ==
[~2018-07-04] MED LIST changes: +ALBUMIN (HUMAN) 25% 100 ML IV ONE; -LIDOCAINE HCL MPF 1% 5ML VIAL ONE
[2018-07-04 10:15] LABS: BASOPHILS % (AUTO) 0.7 % (0.0-5.0); EOSINOPHILS % (AUTO) 1.7 % (0.0-8.0); LYMPHOCYTES % (AUTO) 20.1 % (21.0-51.0); MEAN CORPUSCULAR HEMOGLOBIN 23.2 pg (27.0-33.0); MEAN CORPUSCULAR HGB CONC 29.3 g/dL (32.0-36.0); MEAN CORPUSCULAR VOLUME 79.2 fL (79-99); MONOCYTES % (AUTO) 9.4 % (3.0-13.0); NEUTROPHILS % (AUTO) 68.1 % (40.0-77.0); NUCLEATED RED BLOOD CELLS 0.2 % (0.0-0.19); PLATELET COUNT (AUTO) 146 K/uL (130-400); RED BLOOD CELL COUNT(AUTO) 3.03 MIL/uL (4.50-6.20); RED CELL DISTRIBUTION WIDTH 18.2 % (11.0-15.5); WHITE BLOOD COUNT (AUTO) 4.3 K/uL (4.8-10.8)
[2018-07-04 10:27] LABS: INR 1.24 (0.85-1.15)
[2018-07-04 10:31] LABS: ALBUMIN 2.2 g/dL (3.5-5.0); BILIRUBIN,TOTAL 0.7 mg/dL (0.2-1.0); CREATININE 0.7 mg/dL (0.5-1.5); POTASSIUM 4.3 mmol/L (3.5-5.1); TOTAL PROTEIN, SERUM 8.5 g/dL (6.0-8.3)
--- NOTE | 2018-07-04 11:15 | NUR ---
NOTIFIED DR. CARVAJAL CONTINUOUS IMPROVEMENT COORDINATOR, SPOKE TO RIA TRENT CONTINUOUS IMPROVEMENT COORDINATOR REPORTED HGB 7.0, HCT 24.0, OK TO PROCEED WITH U/S GUIDED PARACENTESIS, PATIENT IS SCHEDULED TO GOT IRON IV INFUSION TOMORROW. NOTIFIED DR. HERNANDEZ OF HGB 7.0, HCT 24., PT 13.,INR 1.24. OK TO PROCEED NO NEW ORDERS . PATIENT INFORMED OF ABNORMAL LABS.
--- NOTE | 2018-07-04 13:45 | NUR ---
U/S GD PARACENTESIS PROCEDURE PERFORMED BY DR. HERNANDEZ. PUNCTURE SITE RIGHT SIDE OF ABDOMEN AND PATIENT TOLERATED PROCEDURE WELL. TOTAL REMOVED 6.3 LITERS OF LIGHT CLEAR YELLOW ASCITES FLUID. ALBUMIN 25% 50 GRAMS IV GIVEN DURING PROCEDURE. SPECIMEN SENT TO LAB. END OF PROCEDURE AT 1325. CATHETER REMOVED AND DRESSING APPLIED. NO BLEEDING NOTED. DISCHARGE INSTRUCTIONS GIVEN TO PATIENT AND VERBALIZED UNDERSTANDING. DISCHARGED VIA WHEELCHAIR. AAO X3 WITH NO C/O PAIN. Addendum: 07/04/18 at 1530 by LITO MOREIRA RN RN TOTAL ASCITES FLUID REMOVED WAS 5.8 LTS.
[2018-07-04 17:47] LABS: APPEARANCE BODY FLUID SLIGHTLY CLOUDY (CLEAR); COLOR,BODY FLUID YELLOW (LT YELLOW); SPECIMENTYPE,BODY FLUID ASCITES; TOTAL VOLUME,BODY FLUID 5800 mL
[2018-07-04 17:48] LABS: BODY FLUID RBC 528 /cu. mm.; BODY FLUID WBC 132 /cu. mm.
[2018-07-04 17:54] LABS: BF LYMPHOCYTE 93 %; BF MONOCYTE 2 %
== END ==
LOC: RAH 09:40
PROVIDERS: ATTEND Internal Medicine Gastroenterology
DX: K70.31 Alcoholic cirrhosis of liver with ascites (principal); E66.01 Morbid (severe) obesity due to excess calories; J45.909 Unspecified asthma, uncomplicated; I10 Essential (primary) hypertension; E11.9 Type 2 diabetes mellitus without complications; Z98.890 Other specified postprocedural states; Z90.49 Acquired absence of other specified parts of digestive tract; Z83.3 Family history of diabetes mellitus; Z82.49 Family history of ischemic heart disease and other diseases of the circulatory system; Z79.899 Other long term (current) drug therapy; Z79.84 Long term (current) use of oral hypoglycemic drugs; Z68.44 Body mass index [BMI] 60.0-69.9, adult; D50.9 Iron deficiency anemia, unspecified; K29.70 Gastritis, unspecified, without bleeding; K57.30 Diverticulosis of large intestine without perforation or abscess without bleeding
CPT/HCPCS: 36415; 49083; 80053; 82042; 84157; 85025; 85610; 87071; 87205; 88108; 88305; 89051; 96365; A4215; P9046 ×2

== ENCOUNTER → 2018-07-25 | Outpatient (CLI) | payer MEDICARE ==
[~2018-07-25] MED LIST changes: -ALBUMIN (HUMAN) 25% 100 ML IV ONE; -ALBUMIN (HUMAN) 25% 200 ML IV ONE; +ALBUMIN (HUMAN) 25% 200 ML IV SCH
[2018-07-25 09:40] LABS: EOSINOPHILS % (AUTO) 3.6 % (0.0-8.0); HEMATOCRIT 27.6 % (42-54); LYMPHOCYTES % (AUTO) 24.9 % (21.0-51.0); MEAN CORPUSCULAR HEMOGLOBIN 24.7 pg (27.0-33.0); MEAN CORPUSCULAR HGB CONC 30.1 g/dL (32.0-36.0); MEAN CORPUSCULAR VOLUME 82.1 fL (79-99); MONOCYTES % (AUTO) 13.1 % (3.0-13.0); NEUTROPHILS % (AUTO) 57.4 % (40.0-77.0); PLATELET COUNT (AUTO) 111 K/uL (130-400); RED BLOOD CELL COUNT(AUTO) 3.36 MIL/uL (4.50-6.20); RED CELL DISTRIBUTION WIDTH 21.7 % (11.0-15.5); WHITE BLOOD COUNT (AUTO) 3.3 K/uL (4.8-10.8)
[2018-07-25 09:48] LABS: CREATININE 0.7 mg/dL (0.5-1.5)
[2018-07-25 09:54] LABS: ALBUMIN 2.4 g/dL (3.5-5.0); BILIRUBIN,TOTAL 0.7 mg/dL (0.2-1.0); INR 1.21 (0.85-1.15); PROTHROMBIN TIME 12.7 SEC (9.6-11.6); TOTAL PROTEIN, SERUM 8.6 g/dL (6.0-8.3)
--- NOTE | 2018-07-25 12:00 | NUR ---
U/S GD PARACENTESIS PROCEDURE PERFORMED BY DR Mini SANDOVAL. PUNCTURE SITE RUQ AND TOTAL REMOVED 3.9 LITERS OF CLOUDY YELLOW FLUID. SPECIMEN COLLECTED AND SENT TO LAB. ALBUMIN 25% 50 GRAMS IV GIVEN DURING PARACENTESIS. END OF PROCEDURE AT 1130. CATHETER REMOVED AND DRESSING APPLIED. NO BLEEDING NOTED. DISCHARGE INSTRUCTIONS GIVEN AND VERBALIZED UNDERSTANDING. DISCHARGED VIA W/C AT 1200.
[2018-07-25 14:46] LABS: SPECIMENTYPE,BODY FLUID ASCITES
[2018-07-25 14:47] LABS: APPEARANCE BODY FLUID CLOUDY (CLEAR); BODY FLUID WBC 193 /cu. mm.; COLOR,BODY FLUID DARK YELLOW (LT YELLOW); TOTAL VOLUME,BODY FLUID 3900 mL
[2018-07-25 14:48] LABS: BODY FLUID RBC 2950 /cu. mm.
[2018-07-25 15:08] LABS: BF LYMPHOCYTE 90 %
== END | disposition home or self-care (01) ==
LOC: RAH 09:04
PROVIDERS: ATTEND Internal Medicine Gastroenterology
DX: K70.31 Alcoholic cirrhosis of liver with ascites (principal); Z79.899 Other long term (current) drug therapy; Z68.44 Body mass index [BMI] 60.0-69.9, adult; E66.01 Morbid (severe) obesity due to excess calories; D64.9 Anemia, unspecified; J45.909 Unspecified asthma, uncomplicated; I10 Essential (primary) hypertension; E11.9 Type 2 diabetes mellitus without complications; Z98.890 Other specified postprocedural states; Z79.84 Long term (current) use of oral hypoglycemic drugs; D50.9 Iron deficiency anemia, unspecified
CPT/HCPCS: 36415; 49083; 80053; 85025; 85610; 87071; 87205; 88108; 88305; 89051; 96365; A4215; P9046

== ENCOUNTER → 2018-08-24 | Outpatient (CLI) | payer MEDICARE ==
[~2018-08-24] MED LIST changes: +LIDOCAINE HCL 1% 20 ML VIAL ONE
[2018-08-24 10:23] LABS: BASOPHILS % (AUTO) 1.1 % (0.0-5.0); EOSINOPHILS % (AUTO) 4.5 % (0.0-8.0); LYMPHOCYTES % (AUTO) 24.4 % (21.0-51.0); MEAN CORPUSCULAR HEMOGLOBIN 26.4 pg (27.0-33.0); MEAN CORPUSCULAR VOLUME 85.2 fL (79-99); MONOCYTES % (AUTO) 12.1 % (3.0-13.0); NEUTROPHILS % (AUTO) 57.9 % (40.0-77.0); NUCLEATED RED BLOOD CELLS 0.1 % (0.0-0.19); PLATELET COUNT (AUTO) 124 K/uL (130-400); RED BLOOD CELL COUNT(AUTO) 3.52 MIL/uL (4.50-6.20); RED CELL DISTRIBUTION WIDTH 18.8 % (11.0-15.5); WHITE BLOOD COUNT (AUTO) 3.4 K/uL (4.8-10.8)
[2018-08-24 10:35] LABS: CREATININE 0.7 mg/dL (0.5-1.5); POTASSIUM 4.5 mmol/L (3.5-5.1)
[2018-08-24 10:37] LABS: INR 1.24 (0.85-1.15)
[2018-08-24 10:39] LABS: ALBUMIN 2.4 g/dL (3.5-5.0); BILIRUBIN,TOTAL 0.6 mg/dL (0.2-1.0); TOTAL PROTEIN, SERUM 8.7 g/dL (6.0-8.3)
--- NOTE | 2018-08-24 11:05 | NUR ---
U/S GD PARACENTESIS PROCEDURE PERFORMED BY DR SANDOVAL. PUNCTURE SITE LEFT SIDE ABDOMEN AND PATIENT TOLERATED PROCEDURE WELL. TOTAL REMOVED 2.1 LITERS OF CLOUDY YELLOW FLUID . END OF PROCEDURE AT 1125. CATHETER REMOVED AND DRESSING APPLIED. NO BLEEDING NOTED. SPECIMEN SENT TO LAB. ALBUMIN 25 % 50 GRAMS GIVEN IV PER MD ORDERS. DISCHARGE INSTRUCTIONS GIVEN TO PATIENT AND VERBALIZED UNDERSTANDING. DISCHARGED VIA W/C, STABLE. AAO X3 WITH NO C/O PAIN.
[2018-08-24 13:50] LABS: SPECIMENTYPE,BODY FLUID ASCITES
[2018-08-24 13:51] LABS: APPEARANCE BODY FLUID SLIGHTLY CLOUDY (CLEAR); COLOR,BODY FLUID YELLOW (LT YELLOW); TOTAL VOLUME,BODY FLUID 2100 mL
[2018-08-24 13:52] LABS: BODY FLUID RBC 657 /cu. mm.; BODY FLUID WBC 343 /cu. mm.
[2018-08-24 13:55] LABS: BF LYMPHOCYTE 64 %; BF MESOTHELIAL 25 %; BF MONOCYTE 11 %
== END | disposition home or self-care (01) ==
LOC: RAH 09:58
PROVIDERS: ATTEND Internal Medicine Gastroenterology
DX: R18.8 Other ascites (principal)
CPT/HCPCS: 36415; 49083; 80053; 85025; 85610; 87071; 87205; 88108; 88305; 89051; 96365; A4215; P9046

== ENCOUNTER → 2018-09-13 | Outpatient (CLI) | payer MEDICARE ==
[~2018-09-13] MED LIST changes: -ALBUMIN (HUMAN) 25% 200 ML IV SCH
[2018-09-13 08:40] LABS: BASOPHILS % (AUTO) 0.4 % (0.0-5.0); EOSINOPHILS % (AUTO) 4.1 % (0.0-8.0); HEMATOCRIT 29.7 % (42-54); LYMPHOCYTES % (AUTO) 26.4 % (21.0-51.0); MEAN CORPUSCULAR HEMOGLOBIN 26.2 pg (27.0-33.0); MEAN CORPUSCULAR HGB CONC 31.1 g/dL (32.0-36.0); MEAN CORPUSCULAR VOLUME 84.2 fL (79-99); MONOCYTES % (AUTO) 12.5 % (3.0-13.0); NEUTROPHILS % (AUTO) 56.6 % (40.0-77.0); NUCLEATED RED BLOOD CELLS 0.1 % (0.0-0.19); PLATELET COUNT (AUTO) 123 K/uL (130-400); RED BLOOD CELL COUNT(AUTO) 3.53 MIL/uL (4.50-6.20); RED CELL DISTRIBUTION WIDTH 17.3 % (11.0-15.5); WHITE BLOOD COUNT (AUTO) 3.6 K/uL (4.8-10.8)
[2018-09-13 08:52] LABS: INR 1.21 (0.85-1.15); PROTHROMBIN TIME 12.7 SEC (9.6-11.6)
[2018-09-13 08:54] LABS: CREATININE 0.8 mg/dL (0.5-1.5); POTASSIUM 4.5 mmol/L (3.5-5.1)
[2018-09-13 08:58] LABS: ALBUMIN 2.4 g/dL (3.5-5.0); BILIRUBIN,TOTAL 0.6 mg/dL (0.2-1.0); TOTAL PROTEIN, SERUM 8.4 g/dL (6.0-8.3)
--- NOTE | 2018-09-13 09:05 | NUR ---
U/S GD PARACENTESIS PROCEDURE PERFORMED BY DR HERNANDEZ. PUNCTURE SITE LEFT UPPER QUADRANT AND PATIENT TOLERATED PROCEDURE WELL. TOTAL REMOVED 2.3 LITERS OF CLOUDY YELLOW FLUID. END OF PROCEDURE AT 0925. CATHETER REMOVED AND DRESSING APPLIED. NO BLEEDING NOTED. SPECIMEN SENT TO LAB. DISCHARGE INSTRUCTIONS GIVEN TO PATIENT AND VERBALIZED UNDERSTANDING. DISCHARGED VIA W/C. AAO X3 WITH NO C/O PAIN.
[2018-09-13 11:47] LABS: SPECIMENTYPE,BODY FLUID ASCITES
[2018-09-13 11:48] LABS: APPEARANCE BODY FLUID SLIGHTLY CLOUDY (CLEAR); COLOR,BODY FLUID YELLOW (LT YELLOW); TOTAL VOLUME,BODY FLUID 2300 mL
[2018-09-13 11:49] LABS: BODY FLUID RBC 802 /cu. mm.; BODY FLUID WBC 428 /cu. mm.
[2018-09-13 12:00] LABS: BF LYMPHOCYTE 79 %; BF MESOTHELIAL 10 %; BF MONOCYTE 9 %
== END | disposition home or self-care (01) ==
LOC: RAH 07:10
PROVIDERS: ATTEND Internal Medicine Gastroenterology
DX: R18.8 Other ascites (principal); Z79.01 Long term (current) use of anticoagulants
CPT/HCPCS: 36415; 49083; 80053; 85025; 85610; 87071; 87205; 88108; 88305; 89051; A4215

== ENCOUNTER → 2018-12-21 | Outpatient (CLI) | payer MEDICARE ==
[~2018-12-21] MED LIST changes: -LIDOCAINE HCL 1% 20 ML VIAL ONE
[2018-12-21 08:40] LABS: BASOPHILS % (AUTO) 0.5 % (0.0-5.0); EOSINOPHILS % (AUTO) 4.9 % (0.0-8.0); HEMATOCRIT 34.6 % (42-54); LYMPHOCYTES % (AUTO) 19.9 % (21.0-51.0); MEAN CORPUSCULAR HEMOGLOBIN 29.9 pg (27.0-33.0); MEAN CORPUSCULAR HGB CONC 32.4 g/dL (32.0-36.0); MEAN CORPUSCULAR VOLUME 92.3 fL (79-99); MONOCYTES % (AUTO) 10.5 % (3.0-13.0); NEUTROPHILS % (AUTO) 64.2 % (40.0-77.0); PLATELET COUNT (AUTO) 110 K/uL (130-400); RED BLOOD CELL COUNT(AUTO) 3.75 MIL/uL (4.50-6.20); RED CELL DISTRIBUTION WIDTH 19.9 % (11.0-15.5); WHITE BLOOD COUNT (AUTO) 3.6 K/uL (4.8-10.8)
[2018-12-21 08:48] LABS: ALBUMIN 2.4 g/dL (3.5-5.0); BILIRUBIN,TOTAL 0.8 mg/dL (0.2-1.0); CREATININE 0.7 mg/dL (0.5-1.5); POTASSIUM 4.3 mmol/L (3.5-5.1); TOTAL PROTEIN, SERUM 8.1 g/dL (6.0-8.3)
[2018-12-21 08:55] LABS: INR 1.22 (0.85-1.15); PARTIAL THROMBOPLASTIN TIME 30.2 SEC (26.3-35.5); PROTHROMBIN TIME 12.8 SEC (9.6-11.6)
--- NOTE | 2018-12-21 09:20 | NUR ---
U/S GD PARACENTESIS PROCEDURE PERFORMED BY DR. SANDOVAL. PUNCTURE SITE LEFT UPPER QUADRANT AND PATIENT TOLERATED PROCEDURE WELL. TOTAL REMOVED 4.2 LITERS OF CLOUDY YELLOW FLUID. END OF PROCEDURE AT 0935. CATHETER REMOVED AND DRESSING APPLIED. NO BLEEDING NOTED. SPECIMEN SENT TO LAB. DISCHARGE INSTRUCTIONS GIVEN TO PATIENT AND VERBALIZED UNDERSTANDING. DISCHARGED VIA W/C. AAO X3 WITH NO C/O PAIN.
[2018-12-21 15:36] LABS: APPEARANCE BODY FLUID CLOUDY (CLEAR); BODY FLUID WBC 215 /cu. mm.; COLOR,BODY FLUID YELLOW (LT YELLOW); SPECIMENTYPE,BODY FLUID ASCITES; TOTAL VOLUME,BODY FLUID 4200 mL
[2018-12-21 15:37] LABS: BODY FLUID RBC 717 /cu. mm.
[2018-12-21 15:55] LABS: BF LYMPHOCYTE 87 %; BF MONOCYTE 8 %
== END | disposition home or self-care (01) ==
LOC: RAH 08:03
PROVIDERS: ATTEND Internal Medicine Gastroenterology
DX: R18.8 Other ascites (principal); Z79.01 Long term (current) use of anticoagulants
CPT/HCPCS: 36415; 49083; 80053; 85025; 85610; 85730; 87071; 87205; 89051; A4215

== ENCOUNTER → 2019-01-17 | Outpatient (CLI) | payer MEDICARE ==
[~2019-01-17] MED LIST changes: +ALBUMIN (HUMAN) 25% 200 ML IV ONE
[2019-01-17 12:19] LABS: BASOPHILS % (AUTO) 0.5 % (0.0-5.0); EOSINOPHILS % (AUTO) 4.9 % (0.0-8.0); HEMATOCRIT 33.3 % (42-54); LYMPHOCYTES % (AUTO) 25.3 % (21.0-51.0); MEAN CORPUSCULAR HEMOGLOBIN 30.1 pg (27.0-33.0); MEAN CORPUSCULAR HGB CONC 32.9 g/dL (32.0-36.0); MEAN CORPUSCULAR VOLUME 91.4 fL (79-99); MONOCYTES % (AUTO) 12.9 % (3.0-13.0); NEUTROPHILS % (AUTO) 56.4 % (40.0-77.0); NUCLEATED RED BLOOD CELLS 0.2 % (0.0-0.19); PLATELET COUNT (AUTO) 105 K/uL (130-400); RED BLOOD CELL COUNT(AUTO) 3.64 MIL/uL (4.50-6.20); RED CELL DISTRIBUTION WIDTH 15.5 % (11.0-15.5); WHITE BLOOD COUNT (AUTO) 2.9 K/uL (4.8-10.8)
[2019-01-17 12:25] LABS: CREATININE 0.8 mg/dL (0.5-1.5); POTASSIUM 4.1 mmol/L (3.5-5.1)
[2019-01-17 12:27] LABS: INR 1.2 (0.85-1.15); PROTHROMBIN TIME 12.6 SEC (9.6-11.6)
[2019-01-17 12:30] LABS: ALBUMIN 2.1 g/dL (3.5-5.0); BILIRUBIN,TOTAL 0.7 mg/dL (0.2-1.0); TOTAL PROTEIN, SERUM 7.9 g/dL (6.0-8.3)
[2019-01-17 13:06] LABS: EOSINOPHILS % (MANUAL) 4 % (1-6); LYMPHOCYTES % (MANUAL) 27 % (22-44); MAN.DIFF COMMENT-IMPRESSION MANUAL DIFFERENTIAL; MONOCYTES % (MANUAL) 6 % (2-9); PLATELET MORPHOLOGY COMMENT SLIGHTLY DECREASED; SEGMENTED NEUTROPHILS % 63 % (40-70)
--- NOTE | 2019-01-17 13:20 | NUR ---
U/S GD PARACENTESIS PROCEDURE PERFORMED BY DR. HERNANDEZ. PUNCTURE SITE RIGHT UPPER QUADRANT AND PATIENT TOLERATED PROCEDURE WELL. TOTAL REMOVED 7.0 LITERS OF CLOUDY YELLOW FLUID. END OF PROCEDURE AT 1345. CATHETER REMOVED AND DRESSING APPLIED. NO BLEEDING NOTED. ALBUMIN 25% 50 GRAMS GIVEN IV. SPECIMEN SENT TO LAB. DISCHARGE INSTRUCTIONS GIVEN TO PATIENT AND VERBALIZED UNDERSTANDING. DISCHARGED VIA W/C. AAO X3 WITH NO C/O PAIN.
[2019-01-17 15:57] LABS: APPEARANCE BODY FLUID CLOUDY (CLEAR); COLOR,BODY FLUID LT YELLOW (LT YELLOW); SPECIMENTYPE,BODY FLUID ASCITES; TOTAL VOLUME,BODY FLUID 7000 mL
[2019-01-17 15:58] LABS: BODY FLUID WBC 111 /cu. mm.
[2019-01-17 15:59] LABS: BODY FLUID RBC 376 /cu. mm.
[2019-01-17 16:14] LABS: BF LYMPHOCYTE 71 %; BF MONOCYTE 16 %
== END ==
LOC: RAH 11:28
PROVIDERS: ATTEND Internal Medicine Gastroenterology
DX: K70.31 Alcoholic cirrhosis of liver with ascites (principal); J45.909 Unspecified asthma, uncomplicated; I10 Essential (primary) hypertension; E11.9 Type 2 diabetes mellitus without complications; F41.9 Anxiety disorder, unspecified; F14.11 Cocaine abuse, in remission; F12.21 Cannabis dependence, in remission; D50.9 Iron deficiency anemia, unspecified; Z79.84 Long term (current) use of oral hypoglycemic drugs; Z79.899 Other long term (current) drug therapy; E66.01 Morbid (severe) obesity due to excess calories; Z90.49 Acquired absence of other specified parts of digestive tract; Z68.44 Body mass index [BMI] 60.0-69.9, adult; Z98.890 Other specified postprocedural states; Z82.49 Family history of ischemic heart disease and other diseases of the circulatory system; Z82.5 Family history of asthma and other chronic lower respiratory diseases; Z83.3 Family history of diabetes mellitus
CPT/HCPCS: 36415; 49083; 80053; 85025; 85610; 87071; 87205; 88108; 88305; 89051; 96365; A4215; P9046

== ENCOUNTER → 2019-02-09 | Outpatient (CLI) | payer MEDICARE ==
[~2019-02-09] MED LIST changes: -ACET325C5 PO; +IRON TAB; +LACT10SO PO; -METF-445 PO; +SPIR50TA PO
[2019-02-09 09:02] LABS: BASOPHILS % (AUTO) 0.4 % (0.0-5.0); EOSINOPHILS % (AUTO) 3.4 % (0.0-8.0); HEMATOCRIT 35.1 % (42-54); LYMPHOCYTES % (AUTO) 15.8 % (21.0-51.0); MEAN CORPUSCULAR HEMOGLOBIN 30.4 pg (27.0-33.0); MEAN CORPUSCULAR HGB CONC 32.4 g/dL (32.0-36.0); MEAN CORPUSCULAR VOLUME 93.9 fL (79-99); NEUTROPHILS % (AUTO) 69.4 % (40.0-77.0); NUCLEATED RED BLOOD CELLS 0.1 % (0.0-0.19); PLATELET COUNT (AUTO) 88 K/uL (130-400); RED BLOOD CELL COUNT(AUTO) 3.74 MIL/uL (4.50-6.20); RED CELL DISTRIBUTION WIDTH 16.9 % (11.0-15.5)
[2019-02-09 09:12] LABS: CREATININE 0.7 mg/dL (0.5-1.5); POTASSIUM 4.1 mmol/L (3.5-5.1)
[2019-02-09 09:14] LABS: INR 1.19 (0.85-1.15); PROTHROMBIN TIME 12.5 SEC (9.6-11.6)
[2019-02-09 09:17] LABS: ALBUMIN 2.2 g/dL (3.5-5.0); BILIRUBIN,TOTAL 0.6 mg/dL (0.2-1.0); TOTAL PROTEIN, SERUM 8.1 g/dL (6.0-8.3)
[2019-02-09 09:33] LABS: PLATELET MORPHOLOGY COMMENT DECREASED
--- NOTE | 2019-02-09 10:57 | NUR ---
U/S GD PARACENTESIS PROCEDURE PERFORMED BY DR. NEAL PUNCTURE SITE LEFT SIDE OF ABDOMEN AND PATIENT TOLERATED PROCEDURE WELL. TOTAL REMOVED 6.4 LITERS OF ASCITES FLUID. ALBUMIN 25% 50 GRAMS IV GIVEN DURING PROCEDURE. SPECIMEN SENT TO LAB. END OF PROCEDURE AT 1020. CATHETER REMOVED AND DRESSING APPLIED. NO BLEEDING NOTED. DISCHARGE INSTRUCTIONS GIVEN TO PATIENT AND VERBALIZED UNDERSTANDING. DISCHARGED VIA WHEELCHAIR. AAO X3 WITH NO C/O PAIN.
[2019-02-09 13:40] LABS: BF EOSINOPHIL 1 %; BF LYMPHOCYTE 66 %; BF MESOTHELIAL 13 %; BF MONOCYTE 4 %
[2019-02-09 13:41] LABS: APPEARANCE BODY FLUID CLOUDY (CLEAR); SPECIMENTYPE,BODY FLUID ASCITES
[2019-02-09 13:42] LABS: COLOR,BODY FLUID YELLOW (LT YELLOW); TOTAL VOLUME,BODY FLUID 6400 mL
[2019-02-09 13:43] LABS: BODY FLUID WBC 197 /cu. mm.
[2019-02-09 13:44] LABS: BODY FLUID RBC 53 /cu. mm.
== END ==
LOC: RAH 08:12
PROVIDERS: ATTEND Internal Medicine Gastroenterology
DX: K70.31 Alcoholic cirrhosis of liver with ascites (principal); F41.9 Anxiety disorder, unspecified; F12.11 Cannabis abuse, in remission; Z79.899 Other long term (current) drug therapy; Z87.891 Personal history of nicotine dependence; Z82.49 Family history of ischemic heart disease and other diseases of the circulatory system; Z83.3 Family history of diabetes mellitus
CPT/HCPCS: 36415; 49083; 80053; 85025; 85610; 87071; 87205; 88108; 88305; 89051; 96365; A4215; P9046

== ENCOUNTER → 2019-02-23 | Outpatient (CLI) | payer MEDICARE ==
[~2019-02-23] MED LIST changes: +ALBUMIN (HUMAN) 25% 100 ML IV SCH; -ALBUMIN (HUMAN) 25% 200 ML IV ONE
--- NOTE | 2019-02-23 12:42 | NUR ---
U/S GD PARACENTESIS PROCEDURE PERFORMED BY DR SANDOVAL. PUNCTURE SITE RLQ. TOTAL REMOVED 5 LITERS OF CLOUDY YELLOW FLUID. PATIENT TOLERATED PROCEDURE WELL. SPECIMEN COLLECTED AND SENT TO LAB. ALBUMIN 25% 25 GRAMS IV GIVEN POST PROCEDURE. DISCHARGE INSTRUCTIONS GIVEN AND PATIENT VERBALIZED UNDERSTANDING. DISCHARGED VIA W/C AT 1130.
[2019-02-23 12:45] LABS: APPEARANCE BODY FLUID CLEAR (CLEAR); BODY FLUID WBC 328 /cu. mm.; COLOR,BODY FLUID YELLOW (LT YELLOW); SPECIMENTYPE,BODY FLUID ASCITES; TOTAL VOLUME,BODY FLUID 5000 mL
[2019-02-23 12:46] LABS: BODY FLUID RBC 558 /cu. mm.
[2019-02-23 12:54] LABS: BF LYMPHOCYTE 73 %; BF MESOTHELIAL 18 %; BF MONOCYTE 6 %
== END ==
LOC: RAH 09:57
PROVIDERS: ATTEND Internal Medicine Gastroenterology
DX: K70.31 Alcoholic cirrhosis of liver with ascites (principal); F41.9 Anxiety disorder, unspecified; F12.11 Cannabis abuse, in remission; Z79.899 Other long term (current) drug therapy; Z87.891 Personal history of nicotine dependence; Z82.49 Family history of ischemic heart disease and other diseases of the circulatory system; Z83.3 Family history of diabetes mellitus
CPT/HCPCS: 49083; 87071; 87205; 88108; 88305; 89051; 96365; A4215; P9046

== ENCOUNTER → 2019-03-13 | Outpatient (CLI) | payer MEDICARE ==
[~2019-03-13] VITALS: Ht 170.2 cm; Wt 181.5 kg
[~2019-03-13] MED LIST changes: -ALBUMIN (HUMAN) 25% 100 ML IV SCH; +ALBUMIN (HUMAN) 25% 200 ML IV ONE; +ALBUMIN (HUMAN) 25% 200 ML IV SCH
[2019-03-13 08:52] LABS: BASOPHILS % (AUTO) 0.9 % (0.0-5.0); EOSINOPHILS % (AUTO) 4.5 % (0.0-8.0); HEMATOCRIT 33.8 % (42-54); LYMPHOCYTES % (AUTO) 21.5 % (21.0-51.0); MEAN CORPUSCULAR HEMOGLOBIN 32.4 pg (27.0-33.0); MEAN CORPUSCULAR HGB CONC 33.8 g/dL (32.0-36.0); MEAN CORPUSCULAR VOLUME 95.8 fL (79-99); MONOCYTES % (AUTO) 10.9 % (3.0-13.0); NEUTROPHILS % (AUTO) 62.2 % (40.0-77.0); NUCLEATED RED BLOOD CELLS 0.1 % (0.0-0.19); PLATELET COUNT (AUTO) 88 K/uL (130-400); RED BLOOD CELL COUNT(AUTO) 3.53 MIL/uL (4.50-6.20); RED CELL DISTRIBUTION WIDTH 17.7 % (11.0-15.5); WHITE BLOOD COUNT (AUTO) 3.3 K/uL (4.8-10.8)
[2019-03-13 08:59] LABS: INR 1.18 (0.85-1.15); PROTHROMBIN TIME 12.4 SEC (9.6-11.6)
[2019-03-13 09:02] LABS: ALBUMIN 2.2 g/dL (3.5-5.0); BILIRUBIN,TOTAL 0.7 mg/dL (0.2-1.0); CREATININE 0.8 mg/dL (0.5-1.5); POTASSIUM 4.2 mmol/L (3.5-5.1); TOTAL PROTEIN, SERUM 7.9 g/dL (6.0-8.3)
--- NOTE | 2019-03-13 10:15 | NUR ---
U/S GD PARACENTESIS PROCEDURE PERFORMED BY DR Ernesto BENITO. PUNCTURE SITE LLQ AND PATIENT TOLERATED PROCEDURE WELL. TOTAL REMOVED 5.3 LITERS OF CLOUDY YELLOW FLUID. ALBUMIN 25% 50 GRAMS IV GIVEN DURING PROCEDURE. SPECIMEN SENT TO LAB. END OF PROCEDURE AT 0945. CATHETER REMOVED AND DRESSING APPLIED. NO BLEEDING NOTED. DISCHARGE INSTRUCTIONS GIVEN TO PATIENT AND VERBALIZED UNDERSTANDING. DISCHARGED VIA W/C AT 1015. AAO X3 WITH NO C/O PAIN.
[2019-03-13 13:45] LABS: APPEARANCE BODY FLUID CLEAR (CLEAR); BODY FLUID RBC 452 /cu. mm.; BODY FLUID WBC 203 /cu. mm.; COLOR,BODY FLUID YELLOW (LT YELLOW); SPECIMENTYPE,BODY FLUID ASCITES; TOTAL VOLUME,BODY FLUID 5300 mL
[2019-03-13 13:55] LABS: BF EOSINOPHIL 1 %; BF LYMPHOCYTE 77 %; BF MESOTHELIAL 15 %; BF MONOCYTE 3 %
== END ==
LOC: RAH 08:03
PROVIDERS: ATTEND Internal Medicine Gastroenterology
DX: K70.31 Alcoholic cirrhosis of liver with ascites (principal); F41.9 Anxiety disorder, unspecified; F12.11 Cannabis abuse, in remission; Z79.899 Other long term (current) drug therapy; Z87.891 Personal history of nicotine dependence; Z82.49 Family history of ischemic heart disease and other diseases of the circulatory system; Z83.3 Family history of diabetes mellitus
CPT/HCPCS: 36415; 49083; 80053; 85025; 85610; 87071; 87205; 88108; 88305; 89051; 96365; A4215; P9046

== ENCOUNTER → 2019-03-23 | Outpatient (CLI) | payer MEDICARE ==
--- NOTE | 2019-03-23 09:51 | NUR ---
U/S GD PARACENTESIS PROCEDURE PERFORMED BY DR Angela NEAL. PUNCTURE SITE LLQ AND PATIENT TOLERATED PROCEDURE WELL. TOTAL REMOVED 5.5 LITERS OF CLOUDY YELLOW FLUID. ALBUMIN 25% 50 GRAMS IV GIVEN POST PROCEDURE. SPECIMEN SENT TO LAB. END OF PROCEDURE AT 0915. CATHETER REMOVED AND DRESSING APPLIED. NO BLEEDING NOTED. DISCHARGE INSTRUCTIONS GIVEN TO PATIENT AND VERBALIZED UNDERSTANDING. DISCHARGED VIA W/C AT 0945. AAO X3 WITH NO C/O PAIN.
[2019-03-23 13:02] LABS: APPEARANCE BODY FLUID CLEAR (CLEAR); COLOR,BODY FLUID YELLOW (LT YELLOW); SPECIMENTYPE,BODY FLUID ASCITES
[2019-03-23 13:03] LABS: BODY FLUID RBC 497 /cu. mm.; BODY FLUID WBC 183 /cu. mm.; TOTAL VOLUME,BODY FLUID 5500 mL
[2019-03-23 13:23] LABS: BF LYMPHOCYTE 90 %; BF MESOTHELIAL 2 %; BF MONOCYTE 8 %
== END ==
LOC: RAH 07:44
PROVIDERS: ATTEND Internal Medicine Gastroenterology
DX: R18.8 Other ascites (principal)
CPT/HCPCS: 49083; 87071; 87205; 88108; 88305; 89051; 96365; A4215; P9046

== ENCOUNTER → 2019-04-06 | Outpatient (CLI) | payer MEDICARE ==
[~2019-04-06] MED LIST changes: -ALBUMIN (HUMAN) 25% 200 ML IV ONE
[2019-04-06 13:10] LABS: INR 1.18 (0.85-1.15); PROTHROMBIN TIME 12.4 SEC (9.6-11.6)
[2019-04-06 13:16] LABS: ALBUMIN 2.4 g/dL (3.5-5.0); BILIRUBIN,TOTAL 0.7 mg/dL (0.2-1.0); CREATININE 0.8 mg/dL (0.5-1.5); POTASSIUM 4.3 mmol/L (3.5-5.1); TOTAL PROTEIN, SERUM 8.4 g/dL (6.0-8.3)
--- NOTE | 2019-04-06 13:30 | NUR ---
U/S GD PARACENTESIS PROCEDURE PERFORMED BY DR BENITO. PUNCTURE SITE RIGHT LOWER QUADRANT OF ABDOMEN. PATIENT TOLERATED PROCEDURE WELL. TOTAL REMOVED 4.1 LITERS OF CLOUDY FINK COLORED ASCITES FLUID. SPECIMEN SENT TO LAB. END OF PROCEDURE AT 1415. CATHETER REMOVED AND DRESSING APPLIED. NO BLEEDING NOTED. ALBUMIN PROTOCOL STARTED UNDER [facility] ALBUMIN PROTOCOL VIA IV. DISCHARGE INSTRUCTIONS GIVEN TO PATIENT AND VERBALIZED UNDERSTANDING. DISCHARGED VIA W/C @ 1430. STABLE, AAO X3 WITH NO C/O PAIN.
[2019-04-06 13:58] LABS: HEMATOCRIT 35.4 % (42-54); MEAN CORPUSCULAR HEMOGLOBIN 32.2 pg (27.0-33.0); MEAN CORPUSCULAR HGB CONC 33.6 g/dL (32.0-36.0); MEAN CORPUSCULAR VOLUME 95.6 fL (79-99); NUCLEATED RED BLOOD CELLS 0.1 % (0.0-0.19); PLATELET COUNT (AUTO) 87 K/uL (130-400); RED CELL DISTRIBUTION WIDTH 15.5 % (11.0-15.5); WHITE BLOOD COUNT (AUTO) 3.3 K/uL (4.8-10.8)
[2019-04-06 14:28] LABS: PLATELET MORPHOLOGY COMMENT DECREASED
[2019-04-06 18:03] LABS: APPEARANCE BODY FLUID CLOUDY (CLEAR); COLOR,BODY FLUID LT YELLOW (LT YELLOW); SPECIMENTYPE,BODY FLUID ASCITES; TOTAL VOLUME,BODY FLUID 4100 mL
[2019-04-06 18:04] LABS: BODY FLUID RBC 117 /cu. mm.; BODY FLUID WBC 749 /cu. mm.
[2019-04-06 20:34] LABS: BF LYMPHOCYTE 70 %; BF MONOCYTE 10 %; BF OTHER CELLS 2
== END | disposition home or self-care (01) ==
LOC: RAH 12:13
PROVIDERS: ATTEND Internal Medicine Gastroenterology
DX: K70.31 Alcoholic cirrhosis of liver with ascites (principal); D50.9 Iron deficiency anemia, unspecified; B19.20 Unspecified viral hepatitis C without hepatic coma; I10 Essential (primary) hypertension; E11.9 Type 2 diabetes mellitus without complications; E66.01 Morbid (severe) obesity due to excess calories; F12.90 Cannabis use, unspecified, uncomplicated; F14.90 Cocaine use, unspecified, uncomplicated; F41.9 Anxiety disorder, unspecified; J45.909 Unspecified asthma, uncomplicated; Z79.84 Long term (current) use of oral hypoglycemic drugs; Z79.899 Other long term (current) drug therapy; Z90.49 Acquired absence of other specified parts of digestive tract; Z82.49 Family history of ischemic heart disease and other diseases of the circulatory system; Z83.3 Family history of diabetes mellitus; Z87.891 Personal history of nicotine dependence; Z68.44 Body mass index [BMI] 60.0-69.9, adult
CPT/HCPCS: 36415; 49083; 80053; 85027; 85610; 87071; 87205; 88108; 88305; 89051; 96365; A4215; P9046

== ENCOUNTER → 2019-04-26 | Outpatient (CLI) | payer MEDICARE ==
[~2019-04-26] VITALS: Ht 170.2 cm; Wt 181.5 kg
[2019-04-26 13:52] LABS: BASOPHILS % (AUTO) 0.5 % (0.0-5.0); EOSINOPHILS % (AUTO) 3.8 % (0.0-8.0); HEMATOCRIT 33.9 % (42-54); LYMPHOCYTES % (AUTO) 23.9 % (21.0-51.0); MEAN CORPUSCULAR HEMOGLOBIN 31.8 pg (27.0-33.0); MEAN CORPUSCULAR HGB CONC 34.2 g/dL (32.0-36.0); MEAN CORPUSCULAR VOLUME 93.1 fL (79-99); MONOCYTES % (AUTO) 9.9 % (3.0-13.0); NEUTROPHILS % (AUTO) 61.9 % (40.0-77.0); NUCLEATED RED BLOOD CELLS 0.1 % (0.0-0.19); PLATELET COUNT (AUTO) 95 K/uL (130-400); RED BLOOD CELL COUNT(AUTO) 3.64 MIL/uL (4.50-6.20); RED CELL DISTRIBUTION WIDTH 14.3 % (11.0-15.5); WHITE BLOOD COUNT (AUTO) 3.6 K/uL (4.8-10.8)
[2019-04-26 14:06] LABS: ALBUMIN 2.4 g/dL (3.5-5.0); BILIRUBIN,TOTAL 0.8 mg/dL (0.2-1.0); CREATININE 0.8 mg/dL (0.5-1.5); POTASSIUM 4.3 mmol/L (3.5-5.1); TOTAL PROTEIN, SERUM 8.1 g/dL (6.0-8.3)
[2019-04-26 14:09] LABS: INR 1.21 (0.85-1.15); PROTHROMBIN TIME 12.6 SEC (9.6-11.6)
[2019-04-26 14:55] LABS: PLATELET MORPHOLOGY COMMENT DECREASED
--- NOTE | 2019-04-26 15:03 | NUR ---
U/S GD PARACENTESIS PROCEDURE PERFORMED BY DR Mini SANDOVAL. PUNCTURE SITE RLQ AND PATIENT TOLERATED PROCEDURE WELL. TOTAL REMOVED 4 LITERS OF CLOUDY YELLOW FLUID. ALBUMIN 25% 25 GRAMS IV GIVEN DURING PROCEDURE. SPECIMEN SENT TO LAB. END OF PROCEDURE AT 1430. CATHETER REMOVED AND DRESSING APPLIED. NO BLEEDING NOTED. DISCHARGE INSTRUCTIONS GIVEN TO PATIENT AND VERBALIZED UNDERSTANDING. DISCHARGED VIA W/C AT 1500. AAO X3 WITH NO C/O PAIN.
[2019-04-26 16:44] LABS: APPEARANCE BODY FLUID CLOUDY (CLEAR); SPECIMENTYPE,BODY FLUID ASCITES
[2019-04-26 16:45] LABS: BODY FLUID RBC 4000 /cu. mm.; BODY FLUID WBC 59 /cu. mm.; COLOR,BODY FLUID ORANGE (LT YELLOW); TOTAL VOLUME,BODY FLUID 4000 mL
[2019-04-26 17:08] LABS: BF EOSINOPHIL 1 %; BF LYMPHOCYTE 81 %; BF MONOCYTE 10 %; BF OTHER CELLS 2
== END ==
LOC: RAH 13:18
PROVIDERS: ATTEND Internal Medicine Gastroenterology
DX: K70.31 Alcoholic cirrhosis of liver with ascites (principal); D50.9 Iron deficiency anemia, unspecified; K80.20 Calculus of gallbladder without cholecystitis without obstruction; K46.9 Unspecified abdominal hernia without obstruction or gangrene; K57.30 Diverticulosis of large intestine without perforation or abscess without bleeding; E66.01 Morbid (severe) obesity due to excess calories; I10 Essential (primary) hypertension; E11.9 Type 2 diabetes mellitus without complications; Z86.19 Personal history of other infectious and parasitic diseases; Z79.899 Other long term (current) drug therapy; Z90.49 Acquired absence of other specified parts of digestive tract; Z98.890 Other specified postprocedural states; Z68.44 Body mass index [BMI] 60.0-69.9, adult
CPT/HCPCS: 36415; 49083; 80053; 85025; 85610; 87071; 87205; 88108; 88305; 89051; A4215; P9046

== ENCOUNTER → 2019-05-07 | Outpatient (CLI) | payer MEDICARE ==
[~2019-05-07] VITALS: Ht 170.2 cm; Wt 181.5 kg
[~2019-05-07] MED LIST changes: +ALBUMIN (HUMAN) 25% 200 ML IV ONE
--- NOTE | 2019-05-07 10:40 | NUR ---
U/S GUIDED PARACENTESIS PROCEDURE PERFORMED BY DR. NEAL. PUNCTURE SITE LEFT LOWER QUADRANT OF ABDOMEN AND PATIENT TOLERATED PROCEDURE WELL. TOTAL REMOVED 4.7 LITERS OF CLOUDY YELLOW ASCITES FLUID. END OF PROCEDURE AT 1100. CATHETER REMOVED AND DRESSING APPLIED. ALBUMIN 25% 50 GRAMS GIVEN IV DURING PROCEDURE PER [facility] [place] PROT[place]OL. NO BLEEDING NOTED. DISCHARGE INSTRUCTIONS GIVEN TO PATIENT. PATIENT VERBALIZED UNDERSTANDING. PIV DC'D BANDAID APPLIED TO SITE, CLEAN AND DRY. PT DISCHARGED VIA W/C, STABLE, AAO X3 WITH NO C/O PAIN. SPECIMEN SENT TO LAB.
[2019-05-07 13:41] LABS: APPEARANCE BODY FLUID CLEAR (CLEAR); COLOR,BODY FLUID YELLOW (LT YELLOW); SPECIMENTYPE,BODY FLUID ASCITES; TOTAL VOLUME,BODY FLUID 4700 mL
[2019-05-07 13:42] LABS: BODY FLUID RBC 582 /cu. mm.; BODY FLUID WBC 234 /cu. mm.
[2019-05-07 13:53] LABS: BF LYMPHOCYTE 73 %; BF MESOTHELIAL 21 %; BF MONOCYTE 4 %
== END ==
LOC: RAH 09:37
PROVIDERS: ATTEND Internal Medicine Gastroenterology
DX: K70.31 Alcoholic cirrhosis of liver with ascites (principal); D50.9 Iron deficiency anemia, unspecified; B19.20 Unspecified viral hepatitis C without hepatic coma; E66.01 Morbid (severe) obesity due to excess calories; J45.909 Unspecified asthma, uncomplicated; E11.9 Type 2 diabetes mellitus without complications; F15.21 Other stimulant dependence, in remission; F10.21 Alcohol dependence, in remission; Z68.44 Body mass index [BMI] 60.0-69.9, adult; Z87.891 Personal history of nicotine dependence; Z79.84 Long term (current) use of oral hypoglycemic drugs; Z79.899 Other long term (current) drug therapy; Z90.49 Acquired absence of other specified parts of digestive tract; Z98.890 Other specified postprocedural states; Z83.3 Family history of diabetes mellitus; Z82.49 Family history of ischemic heart disease and other diseases of the circulatory system
CPT/HCPCS: 49083; 87071; 87205; 89051; 96365; A4215; P9046

== ENCOUNTER → 2019-05-14 | Outpatient (CLI) | payer MEDICARE ==
[~2019-05-14] VITALS: Ht 170.2 cm; Wt 180.4 kg
[~2019-05-14] MED LIST changes: -ALBUMIN (HUMAN) 25% 200 ML IV ONE
--- NOTE | 2019-05-14 11:30 | NUR ---
U/S GD PARACENTESIS PROCEDURE PERFORMED BY DR. SANDOVAL. PUNCTURE SITE LEFT LOWER QUADRANT OF ABDOMEN AND PATIENT TOLERATED PROCEDURE WELL. TOTAL REMOVED 3.1 LITERS OF CLOUDY YELLOW FLUID. END OF PROCEDURE AT 1130. CATHETER REMOVED AND DRESSING APPLIED. NO BLEEDING NOTED. [facility] ALBUMIN PROTOCOL NOT MET. DISCHARGE INSTRUCTIONS GIVEN TO PATIENT. PATIENT VERBALIZED UNDERSTANDING. PT DISCHARGED VIA W/C, STABLE, AAO X3 WITH NO C/O PAIN. SPECIMEN SENT TO LAB.
[2019-05-14 13:36] LABS: APPEARANCE BODY FLUID CLOUDY (CLEAR); COLOR,BODY FLUID LT YELLOW (LT YELLOW); SPECIMENTYPE,BODY FLUID ASCITES; TOTAL VOLUME,BODY FLUID 3100 mL
[2019-05-14 13:37] LABS: BODY FLUID RBC 625 /cu. mm.; BODY FLUID WBC 225 /cu. mm.
[2019-05-14 13:42] LABS: BF EOSINOPHIL 1 %; BF LYMPHOCYTE 88 %; BF MESOTHELIAL 1 %; BF MONOCYTE 4 %
== END ==
LOC: RAH 10:24
PROVIDERS: ATTEND Internal Medicine Gastroenterology
DX: K70.31 Alcoholic cirrhosis of liver with ascites (principal); D50.9 Iron deficiency anemia, unspecified; B19.20 Unspecified viral hepatitis C without hepatic coma; E66.01 Morbid (severe) obesity due to excess calories; J45.909 Unspecified asthma, uncomplicated; I10 Essential (primary) hypertension; E11.9 Type 2 diabetes mellitus without complications; Z68.44 Body mass index [BMI] 60.0-69.9, adult; F15.11 Other stimulant abuse, in remission; Z90.49 Acquired absence of other specified parts of digestive tract; Z79.899 Other long term (current) drug therapy; Z87.891 Personal history of nicotine dependence; Z98.890 Other specified postprocedural states; Z82.49 Family history of ischemic heart disease and other diseases of the circulatory system; Z83.3 Family history of diabetes mellitus; Z82.5 Family history of asthma and other chronic lower respiratory diseases
CPT/HCPCS: 49083; 87071; 87205; 88108; 88305; 89051; A4215

== ENCOUNTER → 2019-05-21 | Outpatient (CLI) | payer MEDICARE ==
--- NOTE | 2019-05-21 11:05 | NUR ---
U/S GD PARACENTESIS PROCEDURE PERFORMED BY DR BENITO. PUNCTURE SITE LEFT LOWER QUADRANT OF ABDOMEN AND PATIENT TOLERATED PROCEDURE WELL. TOTAL REMOVED 4.1 LITERS OF CLOUDY YELLOW FLUID. END OF PROCEDURE AT 1130. CATHETER REMOVED AND DRESSING APPLIED. NO BLEEDING NOTED. ALBUMIN 25% 25 GRAMS GIVEN DURING PROCEDURE PER [facility] [place] ALBUMIN PROTOCOL. DISCHARGE INSTRUCTIONS GIVEN TO PATIENT. PATIENT VERBALIZED UNDERSTANDING. PT DISCHARGED VIA W/C, STABLE, AAO X3 WITH NO C/O PAIN. SPECIMEN SENT TO LAB.
[2019-05-21 13:56] LABS: APPEARANCE BODY FLUID CLEAR (CLEAR); BODY FLUID WBC 263 /cu. mm.; COLOR,BODY FLUID YELLOW (LT YELLOW); SPECIMENTYPE,BODY FLUID ASCITES; TOTAL VOLUME,BODY FLUID 4100 mL
[2019-05-21 13:57] LABS: BODY FLUID RBC 688 /cu. mm.
[2019-05-21 14:07] LABS: BF LYMPHOCYTE 77 %; BF MESOTHELIAL 14 %; BF MONOCYTE 8 %
== END | disposition home or self-care (01) ==
LOC: RAH 10:07
PROVIDERS: ATTEND Internal Medicine Gastroenterology
DX: R18.8 Other ascites (principal); E11.9 Type 2 diabetes mellitus without complications; I10 Essential (primary) hypertension
CPT/HCPCS: 49083; 87071; 87205; 89051; 96365; A4215; P9046

== ENCOUNTER → 2019-05-28 | Outpatient (CLI) | payer MEDICARE ==
--- NOTE | 2019-05-28 11:30 | NUR ---
U/S GD PARACENTESIS PROCEDURE PERFORMED BY DR Mini SANDOVAL. PUNCTURE SITE LEFT LOWER QUADRANT OF ABDOMEN AND PATIENT TOLERATED PROCEDURE WELL. TOTAL REMOVED 3.7 LITERS OF CLOUDY YELLOW FLUID. END OF PROCEDURE AT 1130. CATHETER REMOVED AND DRESSING APPLIED. NO BLEEDING NOTED. DISCHARGE INSTRUCTIONS GIVEN TO PATIENT. PATIENT VERBALIZED UNDERSTANDING. PT DISCHARGED VIA W/C, STABLE, AAO X3 WITH NO C/O PAIN. SPECIMEN SENT TO LAB.
[2019-05-28 13:14] LABS: APPEARANCE BODY FLUID CLEAR (CLEAR); COLOR,BODY FLUID YELLOW (LT YELLOW); SPECIMENTYPE,BODY FLUID ASCITES
[2019-05-28 13:15] LABS: BODY FLUID RBC 802 /cu. mm.; BODY FLUID WBC 384 /cu. mm.; TOTAL VOLUME,BODY FLUID 3700 mL
[2019-05-28 13:34] LABS: BF LYMPHOCYTE 75 %; BF MESOTHELIAL 13 %; BF MONOCYTE 11 %
== END | disposition home or self-care (01) ==
LOC: RAH 09:59
PROVIDERS: ATTEND Internal Medicine Gastroenterology
DX: R18.8 Other ascites (principal)
CPT/HCPCS: 49083; 87071; 87205; 88108; 89051; A4215

== ENCOUNTER → 2019-06-04 | Outpatient (CLI) | payer MEDICARE ==
[~2019-06-04] MED LIST changes: +ALBUMIN (HUMAN) 25% 200 ML IV ONE; -ALBUMIN (HUMAN) 25% 200 ML IV SCH
[2019-06-04 10:10] LABS: HEMATOCRIT 33.6 % (42-54); MEAN CORPUSCULAR HEMOGLOBIN 30.9 pg (27.0-33.0); MEAN CORPUSCULAR HGB CONC 33.4 g/dL (32.0-36.0); MEAN CORPUSCULAR VOLUME 92.3 fL (79-99); NUCLEATED RED BLOOD CELLS 0.1 % (0.0-0.19); PLATELET COUNT (AUTO) 96 K/uL (130-400); RED BLOOD CELL COUNT(AUTO) 3.64 MIL/uL (4.50-6.20); WHITE BLOOD COUNT (AUTO) 3.5 K/uL (4.8-10.8)
[2019-06-04 10:20] LABS: INR 1.14 (0.85-1.15); PROTHROMBIN TIME 11.9 SEC (9.6-11.6)
[2019-06-04 10:23] LABS: ALBUMIN 2.2 g/dL (3.5-5.0); BILIRUBIN,TOTAL 0.7 mg/dL (0.2-1.0); CREATININE 0.8 mg/dL (0.5-1.5); POTASSIUM 4.4 mmol/L (3.5-5.1); TOTAL PROTEIN, SERUM 7.9 g/dL (6.0-8.3)
--- NOTE | 2019-06-04 12:30 | NUR ---
U/S GD PARACENTESIS PROCEDURE PERFORMED BY DR Jessie HERNANDEZ. PUNCTURE SITE LLQ AND PATIENT TOLERATED PROCEDURE WELL. TOTAL REMOVED 3 LITERS OF CLOUDY YELLOW FLUID. SPECIMEN SENT TO LAB. END OF PROCEDURE AT 1155. CATHETER REMOVED AND DRESSING APPLIED. NO BLEEDING NOTED. DISCHARGE INSTRUCTIONS GIVEN TO PATIENT AND VERBALIZED UNDERSTANDING. DISCHARGED VIA W/C AT 1230. AAO X3 WITH NO C/O PAIN.
[2019-06-04 18:23] LABS: APPEARANCE BODY FLUID CLOUDY (CLEAR); BODY FLUID RBC 929 /cu. mm.; BODY FLUID WBC 55 /cu. mm.; COLOR,BODY FLUID LT YELLOW (LT YELLOW); SPECIMENTYPE,BODY FLUID ASCITES; TOTAL VOLUME,BODY FLUID 3000 mL
[2019-06-04 18:32] LABS: BF LYMPHOCYTE 73 %; BF MONOCYTE 5 %
== END | disposition home or self-care (01) ==
LOC: RAH 09:51
PROVIDERS: ATTEND Internal Medicine Gastroenterology
DX: R18.8 Other ascites (principal)
CPT/HCPCS: 36415; 49083; 80053; 85027; 85610; 87071; 87205; 89051; A4215

== ENCOUNTER → 2019-06-11 | Outpatient (CLI) | payer MEDICARE ==
[~2019-06-11] MED LIST changes: -ALBUMIN (HUMAN) 25% 200 ML IV ONE; +ALBUMIN (HUMAN) 25% 200 ML IV SCH
--- NOTE | 2019-06-11 10:50 | NUR ---
U/S GD PARACENTESIS PROCEDURE PERFORMED BY DR BENITO. PUNCTURE SITE LEFT LOWER QUADRANT OF ABDOMEN AND PATIENT TOLERATED PROCEDURE WELL. TOTAL REMOVED 4.0 LITERS OF CLOUDY YELLOW FLUID. END OF PROCEDURE AT 1110. CATHETER REMOVED AND DRESSING APPLIED. NO BLEEDING NOTED. CRITERIA FOR ALBUMIN PROTOCOL NOT MET. DISCHARGE INSTRUCTIONS GIVEN TO PATIENT. PATIENT VERBALIZED UNDERSTANDING. PT DISCHARGED AMBULATORY, STABLE, AAO X3 WITH NO C/O PAIN. SPECIMEN SENT TO LAB.
[2019-06-11 14:02] LABS: SPECIMENTYPE,BODY FLUID ASCITES
[2019-06-11 14:03] LABS: APPEARANCE BODY FLUID CLEAR (CLEAR); BODY FLUID WBC 264 /cu. mm.; COLOR,BODY FLUID YELLOW (LT YELLOW); TOTAL VOLUME,BODY FLUID 4000 mL
[2019-06-11 14:04] LABS: BODY FLUID RBC 762 /cu. mm.
[2019-06-11 14:22] LABS: BF LYMPHOCYTE 77 %; BF MESOTHELIAL 14 %; BF MONOCYTE 6 %
== END ==
LOC: RAH 10:04
PROVIDERS: ATTEND Internal Medicine Gastroenterology
DX: R18.8 Other ascites (principal); Z79.899 Other long term (current) drug therapy; Z87.891 Personal history of nicotine dependence; F14.90 Cocaine use, unspecified, uncomplicated; F12.90 Cannabis use, unspecified, uncomplicated; Z82.49 Family history of ischemic heart disease and other diseases of the circulatory system; Z83.3 Family history of diabetes mellitus; Z82.5 Family history of asthma and other chronic lower respiratory diseases
CPT/HCPCS: 49083; 87071; 87205; 88108; 89051; A4215; P9046

== ENCOUNTER → 2019-06-19 | Outpatient (CLI) | payer MEDICARE ==
--- NOTE | 2019-06-19 12:15 | NUR ---
U/S GD PARACENTESIS PROCEDURE PERFORMED BY DR Jessie HERNANDEZ. PUNCTURE SITE LEFT LOWER QUADRANT OF ABDOMEN AND PATIENT TOLERATED PROCEDURE WELL. TOTAL REMOVED 5.4 LITERS OF CLOUDY YELLOW FLUID. END OF PROCEDURE AT 1145. CATHETER REMOVED AND DRESSING APPLIED. NO BLEEDING NOTED. ALBUMIN 25% 25 GRAMS PER [facility] PROTOCOL. DISCHARGE INSTRUCTIONS GIVEN TO PATIENT. PATIENT VERBALIZED UNDERSTANDING. PT DISCHARGED AMBULATORY, STABLE, AAO X3 WITH NO C/O PAIN. SPECIMEN SENT TO LAB.
[2019-06-19 14:13] LABS: APPEARANCE BODY FLUID CLEAR (CLEAR); BODY FLUID WBC 283 /cu. mm.; COLOR,BODY FLUID YELLOW (LT YELLOW); SPECIMENTYPE,BODY FLUID ASCITES; TOTAL VOLUME,BODY FLUID 5400 mL
[2019-06-19 14:14] LABS: BODY FLUID RBC 858 /cu. mm.
[2019-06-19 14:43] LABS: BF LYMPHOCYTE 97 %; BF MONOCYTE 2 %
== END ==
LOC: RAH 10:17
PROVIDERS: ATTEND Internal Medicine Gastroenterology
DX: R18.8 Other ascites (principal); F14.90 Cocaine use, unspecified, uncomplicated; F12.90 Cannabis use, unspecified, uncomplicated; Z79.899 Other long term (current) drug therapy; Z87.891 Personal history of nicotine dependence; Z82.49 Family history of ischemic heart disease and other diseases of the circulatory system; Z83.3 Family history of diabetes mellitus; Z82.5 Family history of asthma and other chronic lower respiratory diseases
CPT/HCPCS: 49083; 87071; 87205; 88108; 89051; A4215; P9047

== ENCOUNTER → 2019-06-25 | Outpatient (CLI) | payer MEDICARE ==
[~2019-06-25] VITALS: Ht 170.2 cm; Wt 180.4 kg
[~2019-06-25] MED LIST changes: +ALBUMIN (HUMAN) 25% 100 ML IV SCH; -ALBUMIN (HUMAN) 25% 200 ML IV SCH
--- NOTE | 2019-06-25 10:46 | NUR ---
U/S GD PARACENTESIS PROCEDURE PERFORMED BY DR. SANDOVAL. PUNCTURE SITE RIGHT LOWER QUADRANT OF ABDOMEN AND PATIENT TOLERATED PROCEDURE WELL. TOTAL REMOVED 4.7 LITERS OF CLOUDY YELLOW FLUID. END OF PROCEDURE AT 1040. CATHETER REMOVED AND DRESSING APPLIED. NO BLEEDING NOTED. DISCHARGE INSTRUCTIONS GIVEN TO PATIENT. PATIENT VERBALIZED UNDERSTANDING. PT DISCHARGED AMBULATORY, STABLE, AAO X3 WITH NO C/O PAIN. SPECIMEN SENT TO LAB.
[2019-06-25 15:18] LABS: APPEARANCE BODY FLUID SLIGHTLY CLOUDY (CLEAR); COLOR,BODY FLUID LT YELLOW (LT YELLOW); SPECIMENTYPE,BODY FLUID ASCITES; TOTAL VOLUME,BODY FLUID 650 mL
[2019-06-25 15:19] LABS: BODY FLUID WBC 195 /cu. mm.
[2019-06-25 15:20] LABS: BODY FLUID RBC 510 /cu. mm.
[2019-06-25 15:28] LABS: BF LYMPHOCYTE 75 %; BF MESOTHELIAL 5 %; BF MONOCYTE 3 %
== END ==
LOC: RAH 09:46
PROVIDERS: ATTEND Internal Medicine Gastroenterology
DX: R18.8 Other ascites (principal); F14.90 Cocaine use, unspecified, uncomplicated; F12.90 Cannabis use, unspecified, uncomplicated; Z79.899 Other long term (current) drug therapy; Z87.891 Personal history of nicotine dependence; Z82.49 Family history of ischemic heart disease and other diseases of the circulatory system; Z83.3 Family history of diabetes mellitus; Z82.5 Family history of asthma and other chronic lower respiratory diseases
CPT/HCPCS: 49083; 87071; 87205; 89051; A4215

== ENCOUNTER → 2019-07-02 | Outpatient (CLI) | payer MEDICARE ==
[~2019-07-02] VITALS: Ht 170.2 cm; Wt 180.4 kg
[~2019-07-02] MED LIST changes: -ALBUMIN (HUMAN) 25% 100 ML IV SCH; +ALBUMIN (HUMAN) 25% 200 ML IV SCH
--- NOTE | 2019-07-02 10:10 | NUR ---
U/S GD PARACENTESIS PROCEDURE PERFORMED BY DR. COLEMAN. PUNCTURE SITE LEFT LOWER QUADRANT OF ABDOMEN AND PATIENT TOLERATED PROCEDURE WELL. TOTAL REMOVED 3.3 LITERS OF CLOUDY YELLOW FLUID. END OF PROCEDURE AT 1030. CATHETER REMOVED AND DRESSING APPLIED. NO BLEEDING NOTED. PT DID NOT MEET CRITERIA FOR ALBUMIN PER [facility] ALBUMIN PROTOCOL GUIDELINE. DISCHARGE INSTRUCTIONS GIVEN TO PATIENT. PATIENT VERBALIZED UNDERSTANDING. PT DISCHARGED VIA W/C, STABLE, AAO X3 WITH NO C/O PAIN @ 1050. SPECIMEN SENT TO LAB.
[2019-07-02 13:57] LABS: APPEARANCE BODY FLUID CLEAR (CLEAR); COLOR,BODY FLUID YELLOW (LT YELLOW); SPECIMENTYPE,BODY FLUID ASCITES; TOTAL VOLUME,BODY FLUID 3300 mL
[2019-07-02 13:58] LABS: BODY FLUID RBC 517 /cu. mm.; BODY FLUID WBC 279 /cu. mm.
[2019-07-02 14:17] LABS: BF LYMPHOCYTE 71 %; BF MESOTHELIAL 21 %; BF MONOCYTE 8 %
== END ==
LOC: RAH 09:46
PROVIDERS: ATTEND Internal Medicine Gastroenterology
DX: R18.8 Other ascites (principal); F14.90 Cocaine use, unspecified, uncomplicated; F12.90 Cannabis use, unspecified, uncomplicated; Z79.899 Other long term (current) drug therapy; Z87.891 Personal history of nicotine dependence; Z82.49 Family history of ischemic heart disease and other diseases of the circulatory system; Z83.3 Family history of diabetes mellitus; Z82.5 Family history of asthma and other chronic lower respiratory diseases
CPT/HCPCS: 49083; 87071; 87205; 88108; 88305; 89051; A4215

== ENCOUNTER → 2019-07-16 | Outpatient (CLI) | payer MEDICARE ==
[~2019-07-16] MED LIST changes: +ALBUMIN (HUMAN) 25% 200 ML IV PRN; -ALBUMIN (HUMAN) 25% 200 ML IV SCH
--- NOTE | 2019-07-16 12:00 | NUR ---
U/S GD PARACENTESIS PROCEDURE PERFORMED BY DR Parish COLEMAN. PUNCTURE SITE RIGHT LOWER QUADRANT OF ABDOMEN AND PATIENT TOLERATED PROCEDURE WELL. TOTAL REMOVED 3.8 LITERS OF CLOUDY YELLOW FLUID. END OF PROCEDURE AT 1130. CATHETER REMOVED AND DRESSING APPLIED. NO BLEEDING NOTED. DID NOT MEET CRITERIA [facility] ALBUMIN PROTOCOL. DISCHARGE INSTRUCTIONS GIVEN TO PATIENT. PATIENT VERBALIZED UNDERSTANDING. PT DISCHARGED VIA W/C, STABLE, AAO X3 WITH NO C/O PAIN. SPECIMEN SENT TO LAB.
[2019-07-16 16:10] LABS: APPEARANCE BODY FLUID SLIGHTLY CLOUDY (CLEAR); COLOR,BODY FLUID LT YELLOW (LT YELLOW); SPECIMENTYPE,BODY FLUID ASCITES; TOTAL VOLUME,BODY FLUID 4000 mL
[2019-07-16 16:23] LABS: BODY FLUID RBC 275 /cu. mm.; BODY FLUID WBC 185 /cu. mm.
[2019-07-16 16:40] LABS: BF LYMPHOCYTE 92 %
== END ==
LOC: RAH 10:28
PROVIDERS: ATTEND Internal Medicine Gastroenterology
DX: R18.8 Other ascites (principal); F14.90 Cocaine use, unspecified, uncomplicated; F12.90 Cannabis use, unspecified, uncomplicated; Z79.899 Other long term (current) drug therapy; Z82.49 Family history of ischemic heart disease and other diseases of the circulatory system; Z83.3 Family history of diabetes mellitus; Z82.5 Family history of asthma and other chronic lower respiratory diseases; Z87.891 Personal history of nicotine dependence
CPT/HCPCS: 49083; 87071; 87205; 89051; A4215

== ENCOUNTER → 2019-07-23 | Outpatient (CLI) | payer MEDICARE ==
[~2019-07-23] MED LIST changes: -ALBUMIN (HUMAN) 25% 200 ML IV PRN
--- NOTE | 2019-07-23 11:45 | NUR ---
U/S GD PARACENTESIS PROCEDURE PERFORMED BY DR Jessie HERNANDEZ. PUNCTURE SITE RIGHT LOWER QUADRANT OF ABDOMEN AND PATIENT TOLERATED PROCEDURE WELL. TOTAL REMOVED 3.9 LITERS OF CLOUDY YELLOW FLUID. END OF PROCEDURE AT 1115. CATHETER REMOVED AND DRESSING APPLIED. NO BLEEDING NOTED. DID NOT MEET CRITERIA [facility] ALBUMIN PROTOCOL. DISCHARGE INSTRUCTIONS GIVEN TO PATIENT. PATIENT VERBALIZED UNDERSTANDING. PT DISCHARGED VIA W/C, STABLE, AAO X3 WITH NO C/O PAIN. SPECIMEN SENT TO LAB.
[2019-07-23 16:52] LABS: APPEARANCE BODY FLUID CLOUDY (CLEAR); COLOR,BODY FLUID YELLOW (LT YELLOW); SPECIMENTYPE,BODY FLUID ASCITES; TOTAL VOLUME,BODY FLUID 3900 mL
[2019-07-23 16:53] LABS: BODY FLUID RBC 572 /cu. mm.; BODY FLUID WBC 293 /cu. mm.
[2019-07-23 17:03] LABS: BF LYMPHOCYTE 85 %; BF MESOTHELIAL 9 %; BF MONOCYTE 3 %
== END ==
LOC: RAH 10:01
PROVIDERS: ATTEND Internal Medicine Gastroenterology
DX: R18.8 Other ascites (principal); F14.90 Cocaine use, unspecified, uncomplicated; F12.90 Cannabis use, unspecified, uncomplicated; Z79.899 Other long term (current) drug therapy; Z82.49 Family history of ischemic heart disease and other diseases of the circulatory system; Z83.3 Family history of diabetes mellitus; Z82.5 Family history of asthma and other chronic lower respiratory diseases; Z87.891 Personal history of nicotine dependence
CPT/HCPCS: 49083; 87071; 87205; 88108; 89051; A4215

== ENCOUNTER → 2019-07-30 | Outpatient (CLI) | payer MEDICARE ==
[~2019-07-30] MED LIST changes: +ALBUMIN (HUMAN) 25% 100 ML IV SCH
--- NOTE | 2019-07-30 11:30 | NUR ---
U/S GD PARACENTESIS ORDERED. NOT DONE ULTRASOUND OF THE ABDOMEN PERFORMED BY LIA ROLLINS. DR. DALE VIEWED IMAGES AND NOTED PATIENT NOT TO HAVE ENOUGH FLUID TO SAFELY DO PROCEDURE. INFORMED PT OF RESULTS. PT GIVEN DISCHARGE INSTRUCTIONS. PT DISCHARGED HOME VIA W/C STABLE, AAO X3 WITH NO C/O PAIN.
== END | disposition home or self-care (01) ==
LOC: RAH 10:36
PROVIDERS: ATTEND Internal Medicine Gastroenterology
DX: K74.60 Unspecified cirrhosis of liver (principal); R18.8 Other ascites
CPT/HCPCS: 76705

== ENCOUNTER → 2019-08-06 | Outpatient (CLI) | payer MEDICARE ==
[~2019-08-06] MED LIST changes: -ALBUMIN (HUMAN) 25% 100 ML IV SCH; +ALBUMIN (HUMAN) 25% 200 ML IV PRN
--- NOTE | 2019-08-06 11:10 | NUR ---
U/S GD PARACENTESIS PROCEDURE PERFORMED BY DR DALE. PUNCTURE SITE LEFT LOWER QUADRANT OF ABDOMEN AND PATIENT TOLERATED PROCEDURE WELL. TOTAL REMOVED 2.9 LITERS OF CLOUDY YELLOW FLUID. END OF PROCEDURE AT 1105. CATHETER REMOVED AND DRESSING APPLIED. NO BLEEDING NOTE. DISCHARGE INSTRUCTIONS GIVEN TO PATIENT. PATIENT VERBALIZED UNDERSTANDING. PT DISCHARGED AMBULATORY, STABLE, AAO X3 WITH NO C/O PAIN. SPECIMEN SENT TO LAB.
[2019-08-06 14:17] LABS: APPEARANCE BODY FLUID SLIGHTLY CLOUDY (CLEAR); COLOR,BODY FLUID YELLOW (LT YELLOW); SPECIMENTYPE,BODY FLUID ASCITES; TOTAL VOLUME,BODY FLUID 3000 mL
[2019-08-06 14:18] LABS: BODY FLUID RBC 892 /cu. mm.; BODY FLUID WBC 387 /cu. mm.
[2019-08-06 14:25] LABS: BF LYMPHOCYTE 62 %; BF MESOTHELIAL 31 %; BF MONOCYTE 1 %
== END ==
LOC: RAH 09:34
PROVIDERS: ATTEND Internal Medicine Gastroenterology
DX: R18.8 Other ascites (principal); F12.90 Cannabis use, unspecified, uncomplicated; Z87.891 Personal history of nicotine dependence; Z79.899 Other long term (current) drug therapy; Z83.3 Family history of diabetes mellitus; Z82.49 Family history of ischemic heart disease and other diseases of the circulatory system
CPT/HCPCS: 49083; 87071; 87205; 88108; 89051; A4215

== ENCOUNTER → 2019-08-21 | Outpatient (CLI) | payer MEDICARE ==
[~2019-08-21] MED LIST changes: -ALBUMIN (HUMAN) 25% 200 ML IV PRN
[2019-08-21 10:34] LABS: BASOPHILS % (AUTO) 0.1 % (0.0-5.0); HEMATOCRIT 28.8 % (42-54); LYMPHOCYTES % (AUTO) 2.7 % (21.0-51.0); MEAN CORPUSCULAR HEMOGLOBIN 27.4 pg (27.0-33.0); MEAN CORPUSCULAR HGB CONC 30.2 g/dL (32.0-36.0); MEAN CORPUSCULAR VOLUME 90.6 fL (79-99); MONOCYTES % (AUTO) 5.5 % (3.0-13.0); NEUTROPHILS % (AUTO) 90.8 % (40.0-77.0); PLATELET COUNT (AUTO) 76 K/uL (130-400); RED BLOOD CELL COUNT(AUTO) 3.18 MIL/uL (4.50-6.20); RED CELL DISTRIBUTION WIDTH 16.2 % (11.0-15.5); WHITE BLOOD COUNT (AUTO) 16.2 K/uL (4.8-10.8)
[2019-08-21 10:45] LABS: ALBUMIN 2.1 g/dL (3.5-5.0); BILIRUBIN,TOTAL 1.6 mg/dL (0.2-1.0); CREATININE 1.2 mg/dL (0.5-1.5); POTASSIUM 4.1 mmol/L (3.5-5.1); TOTAL PROTEIN, SERUM 7.9 g/dL (6.0-8.3)
--- NOTE | 2019-08-21 11:40 | NUR ---
U/S GD PARACENTESIS PROCEDURE PERFORMED BY DR. DALE. PUNCTURE SITE LEFT LOWER QUADRANT OF ABDOMEN AND PATIENT TOLERATED PROCEDURE WELL. TOTAL REMOVED 2.6 LITERS OF CLOUDY YELLOW FLUID. END OF PROCEDURE AT 1110. CATHETER REMOVED AND DRESSING APPLIED. NO BLEEDING NOTED. PT DID NOT QUALIFY FOR ALBUMIN PER [facility] [place]BUM[place] PROTOCOL. DISCHARGE INSTRUCTIONS GIVEN TO PATIENT. PATIENT VERBALIZED UNDERSTANDING. PT DISCHARGED VIA W/C, STABLE, AAO X3 WITH NO C/O PAIN @ 1140. SPECIMEN SENT TO LAB.
[2019-08-21 12:16] LABS: INR 1.29 (0.85-1.15); PROTHROMBIN TIME 13.4 SEC (9.6-11.6)
[2019-08-21 14:07] LABS: APPEARANCE BODY FLUID CLOUDY (CLEAR); COLOR,BODY FLUID YELLOW (LT YELLOW); SPECIMENTYPE,BODY FLUID ASCITES; TOTAL VOLUME,BODY FLUID 2600 mL
[2019-08-21 14:08] LABS: BODY FLUID RBC 2320 /cu. mm.; BODY FLUID WBC 89 /cu. mm.
[2019-08-21 14:17] LABS: BF EOSINOPHIL 1 %; BF LYMPHOCYTE 83 %; BF MESOTHELIAL 2 %; BF MONOCYTE 3 %
== END ==
LOC: RAH 10:09
PROVIDERS: ATTEND Internal Medicine Gastroenterology
DX: R18.8 Other ascites (principal); J45.909 Unspecified asthma, uncomplicated; F12.90 Cannabis use, unspecified, uncomplicated; F14.90 Cocaine use, unspecified, uncomplicated; Z79.899 Other long term (current) drug therapy; Z87.891 Personal history of nicotine dependence; Z83.3 Family history of diabetes mellitus; Z82.49 Family history of ischemic heart disease and other diseases of the circulatory system
CPT/HCPCS: 36415; 49083; 80053; 85025; 85610; 87071; 87205; 88108; 89051

== ENCOUNTER → 2019-08-27 | Outpatient (CLI) | payer MEDICARE ==
[~2019-08-27] MED LIST changes: +ALBUMIN (HUMAN) 25% 200 ML IV SCH
--- NOTE | 2019-08-27 11:45 | NUR ---
U/S GD PARACENTESIS PROCEDURE PERFORMED BY DR. DALE. PUNCTURE SITE LEFT LOWER QUADRANT OF ABDOMEN AND PATIENT TOLERATED PROCEDURE WELL. TOTAL REMOVED 5.5 LITERS OF CLOUDY YELLOW FLUID. END OF PROCEDURE AT 1115. CATHETER REMOVED AND DRESSING APPLIED. NO BLEEDING NOTED. ALBUMIN 25% 50 GRAMS IV GIVEN [place] [facility]. DISCHARGE INSTRUCTIONS GIVEN TO PATIENT. PATIENT VERBALIZED UNDERSTANDING. PT DISCHARGED VIA W/C, STABLE, AAO X3 WITH NO C/O PAIN @ 1145. SPECIMEN SENT TO LAB.
[2019-08-27 16:46] LABS: APPEARANCE BODY FLUID SLIGHTLY CLOUDY (CLEAR); COLOR,BODY FLUID YELLOW (LT YELLOW); SPECIMENTYPE,BODY FLUID ASCITES; TOTAL VOLUME,BODY FLUID 5500 mL
[2019-08-27 16:47] LABS: BODY FLUID RBC 1375 /cu. mm.; BODY FLUID WBC 93 /cu. mm.
[2019-08-27 16:51] LABS: BF LYMPHOCYTE 67 %; BF MESOTHELIAL 4 %
== END ==
LOC: RAH 09:50
PROVIDERS: ATTEND Internal Medicine Gastroenterology
DX: R18.8 Other ascites (principal); F12.90 Cannabis use, unspecified, uncomplicated; F14.90 Cocaine use, unspecified, uncomplicated; Z79.899 Other long term (current) drug therapy; Z87.891 Personal history of nicotine dependence; Z82.49 Family history of ischemic heart disease and other diseases of the circulatory system; Z83.3 Family history of diabetes mellitus
CPT/HCPCS: 49083; 87071; 87205; 89051; 96365; A4215; P9046

== ENCOUNTER → 2019-09-03 | Outpatient (CLI) | payer MEDICARE ==
--- NOTE | 2019-09-03 12:20 | NUR ---
U/S GD PARACENTESIS PROCEDURE PERFORMED BY DR. DALE. PUNCTURE SITE LEFT LOWER QUADRANT OF ABDOMEN AND PATIENT TOLERATED PROCEDURE WELL. TOTAL REMOVED 4.7 LITERS OF STRAW COLOR FLUID. END OF PROCEDURE AT 1145. CATHETER REMOVED AND DRESSING APPLIED. NO BLEEDING NOTED. DRESSING DRY AND INTACT. DISCHARGE INSTRUCTIONS GIVEN TO PATIENT. PATIENT VERBALIZED UNDERSTANDING. PT DISCHARGED VIA W/C, STABLE, AAO X3 WITH NO C/O PAIN. SPECIMEN SENT TO LAB.
[2019-09-03 19:06] LABS: APPEARANCE BODY FLUID CLOUDY (CLEAR); SPECIMENTYPE,BODY FLUID ASCITES
[2019-09-03 19:07] LABS: BODY FLUID RBC 1525 /cu. mm.; BODY FLUID WBC 115 /cu. mm.; COLOR,BODY FLUID LT YELLOW (LT YELLOW); TOTAL VOLUME,BODY FLUID 4800 mL
[2019-09-03 19:11] LABS: BF EOSINOPHIL 1 %; BF LYMPHOCYTE 26 %; BF MONOCYTE 6 %
== END | disposition home or self-care (01) ==
LOC: RAH 09:52
PROVIDERS: ATTEND Internal Medicine Gastroenterology
DX: R18.8 Other ascites (principal); F12.90 Cannabis use, unspecified, uncomplicated; Z79.899 Other long term (current) drug therapy; Z87.891 Personal history of nicotine dependence; Z82.49 Family history of ischemic heart disease and other diseases of the circulatory system; Z83.3 Family history of diabetes mellitus
CPT/HCPCS: 49083; 87071; 87205; 88108; 89051

== ENCOUNTER → 2019-09-10 | Outpatient (CLI) | payer MEDICARE ==
[~2019-09-10] MED LIST changes: +ALBUMIN (HUMAN) 25% 200 ML IV PRN; -ALBUMIN (HUMAN) 25% 200 ML IV SCH; +LIDOCAINE HCL 1% 20 ML VIAL ONE
--- NOTE | 2019-09-10 12:00 | NUR ---
U/S GD PARACENTESIS PROCEDURE PERFORMED BY DR. DALE. PUNCTURE SITE LEFT LOWER QUADRANT OF ABDOMEN AND PATIENT TOLERATED PROCEDURE WELL. TOTAL REMOVED 4.2 LITERS OF STRAW COLOR FLUID. END OF PROCEDURE AT 1130. CATHETER REMOVED AND DRESSING APPLIED. NO BLEEDING NOTED. DRESSING DRY AND INTACT. DISCHARGE INSTRUCTIONS GIVEN TO PATIENT. PATIENT VERBALIZED UNDERSTANDING. PT DISCHARGED VIA W/C, STABLE, AAO X3 WITH NO C/O PAIN. SPECIMEN SENT TO LAB.
[2019-09-10 13:29] LABS: BF LYMPHOCYTE 53 %; BF MESOTHELIAL 24 %; BF MONOCYTE 15 %
[2019-09-10 13:30] LABS: APPEARANCE BODY FLUID TURBID (CLEAR); BODY FLUID WBC 134 /cu. mm.; COLOR,BODY FLUID YELLOW (LT YELLOW); SPECIMENTYPE,BODY FLUID ASCITES; TOTAL VOLUME,BODY FLUID 4200 mL
[2019-09-10 13:31] LABS: BODY FLUID RBC 1750 /cu. mm.
== END ==
LOC: RAH 10:26
PROVIDERS: ATTEND Internal Medicine Gastroenterology
DX: R18.8 Other ascites (principal)
CPT/HCPCS: 49083; 87071; 87205; 88108; 89051; A4215

== ENCOUNTER 2019-09-17 14:24 | Inpatient (IN) | payer MEDICARE ==
[~2019-09-17] VITALS: Ht 170.2 cm; Wt 184.5 kg
[~2019-09-17 14:24] MED LIST changes: -ALBUMIN (HUMAN) 25% 200 ML IV PRN; -LIDOCAINE HCL 1% 20 ML VIAL ONE
[2019-09-17 15:13] LABS: BASOPHILS % (AUTO) 0.2 % (0.0-5.0); EOSINOPHILS % (AUTO) 0.4 % (0.0-8.0); HEMATOCRIT 22.2 % (42-54); LYMPHOCYTES % (AUTO) 5.3 % (21.0-51.0); MEAN CORPUSCULAR HEMOGLOBIN 28.1 pg (27.0-33.0); MEAN CORPUSCULAR HGB CONC 31.5 g/dL (32.0-36.0); MEAN CORPUSCULAR VOLUME 89.2 fL (79-99); MONOCYTES % (AUTO) 12.3 % (3.0-13.0); NEUTROPHILS % (AUTO) 79.5 % (40.0-77.0); PLATELET COUNT (AUTO) 105 K/uL (130-400); RED BLOOD CELL COUNT(AUTO) 2.49 MIL/uL (4.50-6.20); RED CELL DISTRIBUTION WIDTH 20.7 % (11.0-15.5)
[2019-09-17 15:23] LABS: WHITE BLOOD COUNT (AUTO) 31.7 K/uL (4.8-10.8)
[2019-09-17 15:58] LABS: CARBON DIOXIDE 24 mmol/L (21-32); CHLORIDE 96 mmol/L (101-111); CREATININE 3.2 mg/dL (0.5-1.5); GLOMERULAR FILTR. RATE CALC 21 mL/min (>60); GLUCOSE,RANDOM 133 mg/dL (70-105); INR 1.48 (0.85-1.15); POTASSIUM 4.2 mmol/L (3.5-5.1); PROTHROMBIN TIME 15.3 SEC (9.6-11.6); SODIUM SERUM 126 mmol/L (136-145); UREA NITROGEN, BLOOD 47 mg/dL (7-18)
[2019-09-17 16:16] LABS: ALANINE AMINOTRANSFERASE 14 U/L (12-78); ALBUMIN 1.4 g/dL (3.5-5.0); ASPARTATE AMINOTRANSFERASE 22 U/L (10-37); BILIRUBIN,TOTAL 1.3 mg/dL (0.2-1.0); CREATINE KINASE, TOTAL 30 U/L (21-232); MYOGLOBIN 207 ng/mL (10-92); TOTAL PROTEIN, SERUM 8.2 g/dL (6.0-8.3); TROPONIN I < 0.04 ng/mL (0.00-0.06)
[2019-09-17 17:00] LABS: APPEARANCE,URINE TURBID (CLEAR); BILIRUBIN,URINE SMALL (NEGATIVE); COLOR,URINE YELLOW (YELLOW); GLUCOSE, URINE (UA) NEGATIVE (NEGATIVE); KETONES,URINE 5 mg/dL (NEGATIVE); LEUKOCYTE ESTERASE ,URINE LARGE (NEGATIVE); NITRATE,URINE NEGATIVE (NEGATIVE); OCCULT BLOOD,URINE MODERATE (NEGATIVE); PROTEIN,URINE 100 mg/dL (NEGATIVE)
[2019-09-17] MEDS ORDERED: ZOSYN 3.375GM+NS 50ML 50 ML IV ONE (17:14)
[2019-09-17] MEDS ORDERED: METRONIDAZOLE 500MG/100ML BAG 100 ML ONE (17:14)
[2019-09-17] MEDS ORDERED: SODIUM CHLORIDE 0.9% 1000ML 1,000 ML IV ONE ×2 (17:15→17:42)
[2019-09-17] MEDS ORDERED: ONDANSETRON HCL 4 MG/2 ML VIAL IV PRN (17:15)
[2019-09-17] MEDS ORDERED: GUAIFENESIN-DM 200/20 MG 10 ML PO PRN (17:15)
[2019-09-17] MEDS ORDERED: BENZONATATE 100 MG CAPSULE PO PRN (17:15)
[2019-09-17] MEDS ORDERED: NITROGLYCERIN 0.4 MG SL TAB SL PRN (17:15)
[2019-09-17] MEDS ORDERED: LACTULOSE 20 GM/30 ML UDCUP PO PRN (17:15)
[2019-09-17 17:57] LABS: BACTERIA,URINE Many /HPF (None Seen); SQUAMOUS EPITHELIAL CELL,UR 0-2 /HPF (0-2); WBC,URINE >100 /HPF (0-1)
[2019-09-17 19:09] LABS: % IRON SATURATION 11.3 % (30-44)
--- NOTE | 2019-09-17 20:00 | NUR ---
PT ARRIVED VIA STRETCHER WITH BLAIRE ARTIS ER NURSE, PT DENIES PAIN OR DISCOMFORT, NO FAMILY AT BEDSIDE, PT STATES HE MAY STAND UP BUT CAN NOT WALK DOES NEED A WHEELCHAIR, STOOD UP TO TRANSFER HIMSELF TO BED. ROOM AIR. NO SOB. BED TO LOWEST LEVEL, BED RAILS X4. AAOx3.
[2019-09-17 20:01] VITALS: BP 97/60
[2019-09-17] MEDS: ZOSYN 3.375GM+NS 50ML 50 ML IV SCH (21:00)
[2019-09-17] MEDS: LACTULOSE 20 GM/30 ML UDCUP PO SCH (21:00)
--- NOTE | 2019-09-17 21:00 | NUR ---
PT REFUSES TO ANSWER QUESTIONS FOR ADMISSION. WILL ATTEMPT IN THE MORNING AGAIN.
[2019-09-17] MEDS ORDERED: GLUCAGON 1MG KIT 1 MG ML IM PRN (21:15)
[2019-09-17] MEDS ORDERED: DEXTROSE 50%-WATER 50 ML DISP.SYRIN IV PRN (21:15)
[2019-09-17 21:56] VITALS: BP 97/60
[2019-09-17 23:29] VITALS: BP 94/46
[2019-09-18] VITALS (7 sets, daily range): BP systolic 94–127; BP diastolic 46–65
[2019-09-18] MEDS: FERROUS SULFATE 325 MG TABLET.DR PO SCH ×3 (00:29→21:30)
[2019-09-18] MEDS: METRONIDAZOLE 500MG/100ML BAG 100 ML IV SCH ×2 (00:29→05:48)
[2019-09-18] MEDS: SODIUM CHLORIDE 0.9% 1000ML 1,000 ML IV SCH ×3 (00:29→19:40)
[2019-09-18] MEDS ORDERED: SODIUM CHLORIDE 0.9% 100 ML IV ONE (00:47)
[2019-09-18] MEDS: PANTOPRAZOLE SODIUM 80 MG in NS 100ML IVP SCH ×2 (02:21→17:47)
[2019-09-18] MEDS: LACTULOSE 20 GM/30 ML UDCUP PO SCH ×3 (02:30→18:00)
[2019-09-18] MEDS: INSULIN HUMULIN R 100 UNIT/ML 3ML SQ SCH ×4 (05:43→20:57)
[2019-09-18 05:45] LABS: BASOPHILS % (AUTO) 0.2 % (0.0-5.0); EOSINOPHILS % (AUTO) 0.1 % (0.0-8.0); LYMPHOCYTES % (AUTO) 3.3 % (21.0-51.0); MEAN CORPUSCULAR HEMOGLOBIN 27.8 pg (27.0-33.0); MEAN CORPUSCULAR HGB CONC 31.8 g/dL (32.0-36.0); MEAN CORPUSCULAR VOLUME 87.3 fL (79-99); MONOCYTES % (AUTO) 6.3 % (3.0-13.0); NEUTROPHILS % (AUTO) 88.7 % (40.0-77.0); PLATELET COUNT (AUTO) 103 K/uL (130-400); RED BLOOD CELL COUNT(AUTO) 2.52 MIL/uL (4.50-6.20); RED CELL DISTRIBUTION WIDTH 20.5 % (11.0-15.5); WHITE BLOOD COUNT (AUTO) 29.5 K/uL (4.8-10.8)
[2019-09-18 06:01] LABS: ALBUMIN 1.3 g/dL (3.5-5.0); BILIRUBIN,TOTAL 1.2 mg/dL (0.2-1.0); CREATININE 3.2 mg/dL (0.5-1.5); POTASSIUM 4.9 mmol/L (3.5-5.1); TOTAL PROTEIN, SERUM 7.7 g/dL (6.0-8.3)
--- NOTE | 2019-09-18 06:30 | NUR ---
PT POOR HISTORIAN AND REFUSES TO ANSWER QUESTIONS FOR ADMISSION PROCESS. PT STATES HE DOES NOT TAKE ANY MEDS AT HOME BUT THEN STATED FAMILY WILL BRING IN MEDS TODAY.
[2019-09-18] MEDS: ZOSYN 3.375GM+NS 50ML 50 ML IV SCH (07:18)
[2019-09-18] MEDS ORDERED: FAMOTIDINE/PF 20 MG/2 ML VIAL IV SCH (09:00)
--- NOTE | 2019-09-18 09:21 | NUR ---
LACTULOSE Patient stone. Refused the whole dose of lactulose. Took only 20g, 30mL.
[2019-09-18] MEDS ORDERED: SODIUM CHLORIDE 0.9% 250 ML IV ONE (10:42)
[2019-09-18] MEDS: MEROPENEM 1 GM VIAL IVP SCH ×2 (11:12→21:30)
--- NOTE | 2019-09-18 11:59 | NUR ---
BLOOD TRANSFUSION Started one unit PRBCs for hemoglobin 7. No issues. Transfusing with no problems. Vital signs stable.
--- NOTE | 2019-09-18 13:23 | NUR ---
INITIAL SW spoke to patient's provider. Patient lives with sister, Christiana Danielson, [phone]. MPOA/Provider is Emani Payne, [phone]. SW asked for copy of MPOA to be brought to hospital to place in patient's record. MPOA stated she would bring copy. No home health but does have PHC with [facility] hours. DME? walker with seat, glucometer (no insulin). Patient has prescription for CPAP but has not filled prescription because he does not want to use CPAP. Patient needs help with ADL's and does not drive. PCP is Dr. Malika Hernandez. Pharmacy is [facility] in [place]. DCP is home. Addendum: 09/18/19 at 1327 by FORREST HERBERT SS Amended: Links added.
[2019-09-18] MEDS ORDERED: EPOETIN ALFA 10,000 UNIT/ML VIAL SQ SCH (14:45)
[2019-09-18] MEDS ORDERED: PHYTONADIONE 10 MG/1 ML AMP IM SCH (15:15)
--- NOTE | 2019-09-18 15:38 | NUR ---
REPORT Gave report to nurse Leidy. Patient going to room 329.
[2019-09-18] MEDS ORDERED: FUROSEMIDE 20 MG TABLET PO SCH (17:00)
[2019-09-18] MEDS ORDERED: ALBUMIN (HUMAN) 25% 50 ML IV SCH (17:30)
[2019-09-18] MEDS: PHARMACY COMMUNICATION MISC SCH ×2 (17:45→23:45)
[2019-09-18] MEDS ORDERED: SPIRONOLACTONE 25 MG TAB PO SCH (21:00)
[2019-09-19] MEDS ORDERED: HYDROMORPHONE HCL 2 MG/ML VIAL IVP PRN (01:30)
[2019-09-19] MEDS: LACTULOSE 20 GM/30 ML UDCUP PO SCH ×3 (02:50→18:00)
[2019-09-19 02:55] VITALS: BP 106/47
[2019-09-19] MEDS: PHARMACY COMMUNICATION MISC SCH ×7 (04:00→23:45)
[2019-09-19 04:45] LABS: BASOPHILS % (AUTO) 0.3 % (0.0-5.0); EOSINOPHILS % (AUTO) 0.7 % (0.0-8.0); HEMATOCRIT 23.2 % (42-54); LYMPHOCYTES % (AUTO) 7.1 % (21.0-51.0); MEAN CORPUSCULAR HEMOGLOBIN 27.5 pg (27.0-33.0); MEAN CORPUSCULAR VOLUME 88.5 fL (79-99); MONOCYTES % (AUTO) 9.6 % (3.0-13.0); NEUTROPHILS % (AUTO) 80.8 % (40.0-77.0); PLATELET COUNT (AUTO) 98 K/uL (130-400); RED BLOOD CELL COUNT(AUTO) 2.62 MIL/uL (4.50-6.20); RED CELL DISTRIBUTION WIDTH 19.8 % (11.0-15.5); WHITE BLOOD COUNT (AUTO) 18.3 K/uL (4.8-10.8)
[2019-09-19 04:57] LABS: % IRON SATURATION 43.7 % (30-44)
[2019-09-19 04:58] LABS: INR 1.45 (0.85-1.15); PARTIAL THROMBOPLASTIN TIME 37.6 SEC (26.3-35.5)
[2019-09-19 05:11] LABS: ALBUMIN 1.3 g/dL (3.5-5.0); CREATININE 2.9 mg/dL (0.5-1.5); POTASSIUM 4.3 mmol/L (3.5-5.1); TOTAL PROTEIN, SERUM 7.6 g/dL (6.0-8.3)
[2019-09-19] MEDS: INSULIN HUMULIN R 100 UNIT/ML 3ML SQ SCH ×4 (05:55→20:36)
[2019-09-19] MEDS ORDERED: HYDROMORPHONE 1 MG/1 ML AMP IVP PRN (07:15)
[2019-09-19 08:00] VITALS: BP 119/96
[2019-09-19] MEDS: THIAMINE HCL 100 MG TABLET PO SCH (09:01)
[2019-09-19] MEDS: MEROPENEM 1 GM VIAL IVP SCH (09:01)
[2019-09-19] MEDS: FOLIC ACID/VITAMIN B COMP W-C 1 CAP TAB PO SCH (09:01)
[2019-09-19] MEDS: FERROUS SULFATE 325 MG TABLET.DR PO SCH ×2 (09:01→19:37)
[2019-09-19 12:00] VITALS: BP 115/64
[2019-09-19] MEDS: CEFTRIAXONE SODIUM 1 GM IVP SCH (15:22)
[2019-09-19 16:00] VITALS: BP 127/55
[2019-09-19] MEDS ORDERED: ACETAMINOPHEN EXTRA STRENGTH 500 MG TABLET PO PRN (16:30)
[2019-09-19 19:15] VITALS: BP 131/63
[2019-09-20] VITALS: BP 98/59
[2019-09-20] MEDS: PHARMACY COMMUNICATION MISC SCH ×2 (04:00→05:45)
[2019-09-20 04:07] VITALS: BP 130/52
[2019-09-20 05:26] LABS: BASOPHILS % (AUTO) 0.3 % (0.0-5.0); EOSINOPHILS % (AUTO) 0.6 % (0.0-8.0); HEMATOCRIT 24.8 % (42-54); LYMPHOCYTES % (AUTO) 10.4 % (21.0-51.0); MEAN CORPUSCULAR HEMOGLOBIN 27.3 pg (27.0-33.0); MEAN CORPUSCULAR HGB CONC 30.6 g/dL (32.0-36.0); MEAN CORPUSCULAR VOLUME 89.2 fL (79-99); MONOCYTES % (AUTO) 12.9 % (3.0-13.0); NEUTROPHILS % (AUTO) 73.6 % (40.0-77.0); PLATELET COUNT (AUTO) 109 K/uL (130-400); RED BLOOD CELL COUNT(AUTO) 2.78 MIL/uL (4.50-6.20); RED CELL DISTRIBUTION WIDTH 19.9 % (11.0-15.5); WHITE BLOOD COUNT (AUTO) 15.6 K/uL (4.8-10.8)
[2019-09-20 05:45] LABS: ALBUMIN 1.3 g/dL (3.5-5.0); BILIRUBIN,TOTAL 0.6 mg/dL (0.2-1.0); CREATININE 2.3 mg/dL (0.5-1.5); POTASSIUM 4.6 mmol/L (3.5-5.1)
[2019-09-20] MEDS: INSULIN HUMULIN R 100 UNIT/ML 3ML SQ SCH ×4 (06:13→21:24)
[2019-09-20 08:21] VITALS: BP 116/49
[2019-09-20] MEDS: FERROUS SULFATE 325 MG TABLET.DR PO SCH ×2 (09:04→20:22)
[2019-09-20] MEDS: THIAMINE HCL 100 MG TABLET PO SCH (09:04)
[2019-09-20] MEDS: FOLIC ACID/VITAMIN B COMP W-C 1 CAP TAB PO SCH (09:04)
[2019-09-20 10:31] VITALS: BP 123/53
[2019-09-20] MEDS: CEFTRIAXONE SODIUM 1 GM IVP SCH (13:54)
[2019-09-20 15:48] VITALS: BP 122/63
[2019-09-20] MEDS: SODIUM CHLORIDE 0.9% 1000ML 1,000 ML IV SCH (18:27)
[2019-09-20 20:00] VITALS: BP 142/65
[2019-09-21] VITALS (7 sets, daily range): BP systolic 104–136; BP diastolic 48–68
[2019-09-21] MEDS: INSULIN HUMULIN R 100 UNIT/ML 3ML SQ SCH ×4 (04:20→21:29)
[2019-09-21] MEDS: FERROUS SULFATE 325 MG TABLET.DR PO SCH ×2 (10:11→20:31)
[2019-09-21] MEDS: FOLIC ACID/VITAMIN B COMP W-C 1 CAP TAB PO SCH (10:11)
[2019-09-21] MEDS: THIAMINE HCL 100 MG TABLET PO SCH (10:11)
[2019-09-21] MEDS: CEFTRIAXONE SODIUM 1 GM IVP SCH ×3 (14:55→20:31)
[2019-09-21] MEDS ORDERED: EPOETIN ALFA 10,000 UNIT/ML VIAL SQ SCH (16:00)
[2019-09-21] MEDS: PANTOPRAZOLE SODIUM 40 MG TABLET.DR PO SCH (20:31)
[2019-09-22] MEDS: SODIUM CHLORIDE 0.9% 1000ML 1,000 ML IV SCH (03:00)
[2019-09-22 03:30] VITALS: BP 93/56
[2019-09-22 05:29] LABS: BASOPHILS % (AUTO) 0.3 % (0.0-5.0); EOSINOPHILS % (AUTO) 1.6 % (0.0-8.0); HEMATOCRIT 26.4 % (42-54); LYMPHOCYTES % (AUTO) 14.4 % (21.0-51.0); MEAN CORPUSCULAR HEMOGLOBIN 27.5 pg (27.0-33.0); MEAN CORPUSCULAR HGB CONC 29.9 g/dL (32.0-36.0); MONOCYTES % (AUTO) 11.8 % (3.0-13.0); NEUTROPHILS % (AUTO) 68.9 % (40.0-77.0); PLATELET COUNT (AUTO) 114 K/uL (130-400); RED BLOOD CELL COUNT(AUTO) 2.87 MIL/uL (4.50-6.20); RED CELL DISTRIBUTION WIDTH 19.2 % (11.0-15.5); WHITE BLOOD COUNT (AUTO) 14.8 K/uL (4.8-10.8)
[2019-09-22 05:57] LABS: ALBUMIN 1.4 g/dL (3.5-5.0); BILIRUBIN,TOTAL 0.7 mg/dL (0.2-1.0); CREATININE 1.8 mg/dL (0.5-1.5); MAGNESIUM 2.2 mg/dL (1.80-2.40); PHOSPHORUS 3.5 mg/dL (2.5-4.9); POTASSIUM 4.8 mmol/L (3.5-5.1); TOTAL PROTEIN, SERUM 8.7 g/dL (6.0-8.3)
[2019-09-22] MEDS: INSULIN HUMULIN R 100 UNIT/ML 3ML SQ SCH ×4 (05:59→21:00)
[2019-09-22 08:20] VITALS: BP 119/57
[2019-09-22] MEDS: PANTOPRAZOLE SODIUM 40 MG TABLET.DR PO SCH ×2 (09:22→21:31)
[2019-09-22] MEDS: FERROUS SULFATE 325 MG TABLET.DR PO SCH ×2 (09:22→21:31)
[2019-09-22] MEDS: THIAMINE HCL 100 MG TABLET PO SCH (09:22)
[2019-09-22] MEDS: FOLIC ACID/VITAMIN B COMP W-C 1 CAP TAB PO SCH (09:22)
[2019-09-22] MEDS: CEFTRIAXONE SODIUM 1 GM IVP SCH ×2 (09:22→21:31)
[2019-09-22 11:29] VITALS: BP 106/55
[2019-09-22 16:29] VITALS: BP 148/68
[2019-09-22 19:40] VITALS: BP 100/47
[2019-09-22] MEDS: SODIUM CHLORIDE 1,000 MG TAB PO SCH (21:31)
[2019-09-22 23:36] VITALS: BP 107/52
[2019-09-23 03:31] VITALS: BP 106/42
[2019-09-23 06:02] LABS: BASOPHILS % (AUTO) 0.4 % (0.0-5.0); EOSINOPHILS % (AUTO) 2.5 % (0.0-8.0); LYMPHOCYTES % (AUTO) 18.1 % (21.0-51.0); MEAN CORPUSCULAR HEMOGLOBIN 27.7 pg (27.0-33.0); MEAN CORPUSCULAR VOLUME 92.2 fL (79-99); MONOCYTES % (AUTO) 12.4 % (3.0-13.0); NEUTROPHILS % (AUTO) 62.5 % (40.0-77.0); PLATELET COUNT (AUTO) 130 K/uL (130-400); RED BLOOD CELL COUNT(AUTO) 2.82 MIL/uL (4.50-6.20); RED CELL DISTRIBUTION WIDTH 19.6 % (11.0-15.5); WHITE BLOOD COUNT (AUTO) 14.2 K/uL (4.8-10.8)
[2019-09-23] MEDS: INSULIN HUMULIN R 100 UNIT/ML 3ML SQ SCH ×4 (06:14→21:00)
[2019-09-23 06:19] LABS: ALBUMIN 1.4 g/dL (3.5-5.0); BILIRUBIN,TOTAL 0.7 mg/dL (0.2-1.0); CREATININE 2.3 mg/dL (0.5-1.5); TOTAL PROTEIN, SERUM 8.7 g/dL (6.0-8.3)
--- NOTE | 2019-09-23 07:30 | NUR ---
NOTE ASLEEP, EASILY AROUSED TO VERBAL STIMULI. NO DISTRESS OR SOB NOTED. NO N/V. HERE WITH ASCITES DUE TO H/O CIRRHOSIS. STATES HE GETS WEEKLY PARACENTESIS AND WITH LOW BLOOD LEVELS ON THIS ADMISSION. HE RECEIVED BLOOD TRANSFUSION AND HAS BEEN STEADY LOW. ASLO BEING TREATED FOR SEPSIS, RENAL FAILURE, UTI, LEUKOCYTOSIS. P.T. WORKING WITH HIM HAS BEEN WEAK AND BEEN ABLE TO MOVE AROUND WITH WALKER AND HELP. REPOST IRRITATION AROUND ANUS FROM [facility] FROM [facility].
[2019-09-23 09:04] VITALS: BP 116/55
[2019-09-23 11:50] VITALS: BP 116/47
[2019-09-23] MEDS: CEFTRIAXONE SODIUM 1 GM IVP SCH ×2 (11:58→21:04)
[2019-09-23] MEDS: PANTOPRAZOLE SODIUM 40 MG TABLET.DR PO SCH ×2 (11:58→21:03)
[2019-09-23] MEDS: FERROUS SULFATE 325 MG TABLET.DR PO SCH ×2 (11:58→21:03)
[2019-09-23] MEDS: THIAMINE HCL 100 MG TABLET PO SCH (11:58)
[2019-09-23] MEDS: FOLIC ACID/VITAMIN B COMP W-C 1 CAP TAB PO SCH (11:58)
[2019-09-23] MEDS: SODIUM CHLORIDE 1,000 MG TAB PO SCH (11:58)
[2019-09-23 14:32] LABS: URIC ACID 7.4 mg/dL (2.6-7.2)
[2019-09-23 14:33] LABS: THYROID STIMULATING HORMONE 4.16 uIU/mL (0.36-3.74)
[2019-09-23 16:12] VITALS: BP 115/48
[2019-09-23] MEDS: MIDODRINE HCL 5 MG TABLET PO SCH ×2 (17:09→21:03)
[2019-09-23 20:06] VITALS: BP 106/53
[2019-09-23] MEDS: LACTULOSE 20 GM/30 ML UDCUP PO SCH (21:03)
[2019-09-23 23:18] VITALS: BP 115/54
[2019-09-24] VITALS (12 sets, daily range): BP systolic 95–134; BP diastolic 44–84
[2019-09-24] MEDS: MIDODRINE HCL 5 MG TABLET PO SCH ×3 (04:53→22:16)
[2019-09-24 05:23] LABS: CREATININE,URINE RANDOM 101 mg/dL (30-135); SODIUM,URINE RANDOM 15 mmol/l (40-220)
[2019-09-24 05:40] LABS: MEAN CORPUSCULAR HEMOGLOBIN 27.9 pg (27.0-33.0); MEAN CORPUSCULAR VOLUME 93.1 fL (79-99); PLATELET COUNT (AUTO) 112 K/uL (130-400); RED BLOOD CELL COUNT(AUTO) 2.47 MIL/uL (4.50-6.20); RED CELL DISTRIBUTION WIDTH 19.2 % (11.0-15.5); WHITE BLOOD COUNT (AUTO) 11.1 K/uL (4.8-10.8)
--- NOTE | 2019-09-24 05:56 | NUR ---
LOW HGB HGB 6.9 REPORTED TO CECELIA SOLARES. NEW ORDERS RECEIVED TO ORDER 2 UNITS OF PACKED RBCS AND TRANSFUSE 1 UNIT. PATIENT AWARE. WILL CONTINUE TO BE OBSERVED. CALL LIGHT WITHIN REACH. Addendum: 09/24/19 at 0602 by ERVIN CARVAJAL RN RN Amended: Links added.
[2019-09-24 06:56] LABS: ALBUMIN 1.3 g/dL (3.5-5.0); BILIRUBIN,TOTAL 0.5 mg/dL (0.2-1.0); CREATININE 2.2 mg/dL (0.5-1.5); MAGNESIUM 1.8 mg/dL (1.80-2.40); PHOSPHORUS 4.1 mg/dL (2.5-4.9); POTASSIUM 4.9 mmol/L (3.5-5.1); TOTAL PROTEIN, SERUM 7.8 g/dL (6.0-8.3)
[2019-09-24] MEDS: INSULIN HUMULIN R 100 UNIT/ML 3ML SQ SCH ×4 (07:00→20:56)
[2019-09-24 07:14] LABS: EOSINOPHILS % (MANUAL) 1 % (1-6); LYMPHOCYTES % (MANUAL) 5 % (22-44); MAN.DIFF COMMENT-IMPRESSION MANUAL DIFFERENTIAL; MONOCYTES % (MANUAL) 7 % (2-9); SEGMENTED NEUTROPHILS % 87 % (40-70)
[2019-09-24] MEDS: SODIUM CHLORIDE 1,000 MG TAB PO SCH (08:49)
[2019-09-24] MEDS: THIAMINE HCL 100 MG TABLET PO SCH (08:49)
[2019-09-24] MEDS: FOLIC ACID/VITAMIN B COMP W-C 1 CAP TAB PO SCH (08:49)
[2019-09-24] MEDS: PANTOPRAZOLE SODIUM 40 MG TABLET.DR PO SCH ×2 (08:49→20:44)
[2019-09-24] MEDS: FERROUS SULFATE 325 MG TABLET.DR PO SCH ×2 (08:49→20:44)
[2019-09-24] MEDS: LACTULOSE 20 GM/30 ML UDCUP PO SCH ×2 (08:49→20:56)
[2019-09-24] MEDS: CEFTRIAXONE SODIUM 1 GM IVP SCH ×2 (08:56→20:44)
[2019-09-24] MEDS ORDERED: SODIUM CHLORIDE 0.9% 250 ML IV ONE (10:12)
--- NOTE | 2019-09-24 15:00 | NUR ---
U/S GD PARACENTESIS PROCEDURE PERFORMED BY DR Jessie HERNANDEZ. PUNCTURE SITE RUQ AND PATIENT TOLERATED PROCEDURE WELL. TOTAL REMOVED 3 LITERS OF CLOUDY YELLOW FLUID. END OF PROCEDURE AT 1445. CATHETER REMOVED AND DRESSING APPLIED. NO BLEEDING NOTED. REPORT GIVEN TO Asif ASENCIO RN AND PATIENT TRANSPORTED TO [facility] VIA BED AT 1500. AAO X3 WITH NO C/O PAIN.
[2019-09-24 17:37] LABS: BASOPHILS % (AUTO) 0.4 % (0.0-5.0); EOSINOPHILS % (AUTO) 1.5 % (0.0-8.0); HEMATOCRIT 25.1 % (42-54); LYMPHOCYTES % (AUTO) 11.9 % (21.0-51.0); MEAN CORPUSCULAR HEMOGLOBIN 27.7 pg (27.0-33.0); MEAN CORPUSCULAR HGB CONC 30.7 g/dL (32.0-36.0); MEAN CORPUSCULAR VOLUME 90.3 fL (79-99); MONOCYTES % (AUTO) 11.3 % (3.0-13.0); PLATELET COUNT (AUTO) 134 K/uL (130-400); RED BLOOD CELL COUNT(AUTO) 2.78 MIL/uL (4.50-6.20); RED CELL DISTRIBUTION WIDTH 20.3 % (11.0-15.5); WHITE BLOOD COUNT (AUTO) 11.4 K/uL (4.8-10.8)
--- NOTE | 2019-09-24 18:00 | NUR ---
NOTE PATIENT DID WELL TODAY. HE RECEIVED ONE UNIT PRBS THIS AM FOR HGB 6.9. HE WILL HAVE LABS IN AM. HE ALSO TOLERATED PARACENTESIS 3 LITERS REMOVED. VS STABLE. WILL BE STARTED ON ALBUMIN ORDERED PER DR GRUBBS. HAS BEEN VOIDING IN TOWEL FOR HE HAS TROUBLE USING URINAL BECAUSE OF HIS SIZE AND REPORTED SOME IRRITATION TO BUTTOCKS FROM FREQUENT BOWEL MOVEMENTS DESPITE LACTULOSE ON HOLD FOR NOW.
--- NOTE | 2019-09-24 20:57 | NUR ---
LACTULOSE REFUSED BY PT. VERBALIZED HE ALREADY HAD A 4X BM'S.
[2019-09-24] MEDS: ALBUMIN (HUMAN) 25% 100 ML IV SCH ×2 (22:13→22:16)
[2019-09-25] VITALS: BP 114/63
[2019-09-25 04:00] VITALS: BP 112/52
[2019-09-25] MEDS: ALBUMIN (HUMAN) 25% 100 ML IV SCH ×3 (05:28→21:17)
[2019-09-25] MEDS: MIDODRINE HCL 5 MG TABLET PO SCH ×3 (05:28→21:53)
[2019-09-25 05:55] LABS: BASOPHILS % (AUTO) 0.3 % (0.0-5.0); EOSINOPHILS % (AUTO) 1.6 % (0.0-8.0); HEMATOCRIT 21.9 % (42-54); LYMPHOCYTES % (AUTO) 17.3 % (21.0-51.0); MEAN CORPUSCULAR HEMOGLOBIN 27.9 pg (27.0-33.0); MEAN CORPUSCULAR HGB CONC 31.5 g/dL (32.0-36.0); MEAN CORPUSCULAR VOLUME 88.7 fL (79-99); MONOCYTES % (AUTO) 11.4 % (3.0-13.0); NEUTROPHILS % (AUTO) 67.2 % (40.0-77.0); PLATELET COUNT (AUTO) 123 K/uL (130-400); RED BLOOD CELL COUNT(AUTO) 2.47 MIL/uL (4.50-6.20); RED CELL DISTRIBUTION WIDTH 20.7 % (11.0-15.5)
[2019-09-25] MEDS: INSULIN HUMULIN R 100 UNIT/ML 3ML SQ SCH ×4 (05:56→21:00)
--- NOTE | 2019-09-25 05:57 | NUR ---
Hgb / Hct: 6.9 and 21.9 Informed Alice Humphries NP with an order to transfuse 2 units of PRBC. To recheck H and H after first bag is transfused.
[2019-09-25 06:43] LABS: ALBUMIN 1.5 g/dL (3.5-5.0); BILIRUBIN,TOTAL 0.8 mg/dL (0.2-1.0); CREATININE 1.9 mg/dL (0.5-1.5); POTASSIUM 4.7 mmol/L (3.5-5.1); TOTAL PROTEIN, SERUM 7.9 g/dL (6.0-8.3)
[2019-09-25] MEDS: IPRATROPIUM/ALBUTEROL SULFATE 3 ML SOLUTION IH PRN ×2 (06:57→18:44)
[2019-09-25 08:00] VITALS: BP 98/55
[2019-09-25] MEDS: CEFTRIAXONE SODIUM 1 GM IVP SCH ×2 (08:54→21:13)
[2019-09-25] MEDS: FOLIC ACID/VITAMIN B COMP W-C 1 CAP TAB PO SCH (08:55)
[2019-09-25] MEDS: FERROUS SULFATE 325 MG TABLET.DR PO SCH ×2 (08:55→21:13)
[2019-09-25] MEDS: PANTOPRAZOLE SODIUM 40 MG TABLET.DR PO SCH ×2 (08:56→21:13)
[2019-09-25] MEDS: SODIUM CHLORIDE 1,000 MG TAB PO SCH (08:56)
[2019-09-25] MEDS: THIAMINE HCL 100 MG TABLET PO SCH (08:56)
[2019-09-25] MEDS: LACTULOSE 20 GM/30 ML UDCUP PO SCH ×2 (09:00→21:00)
[2019-09-25] MEDS ORDERED: SODIUM CHLORIDE 0.9% 250 ML IV ONE (11:47)
[2019-09-25 12:00] VITALS: BP 96/54
[2019-09-25 16:00] VITALS: BP 111/60
--- NOTE | 2019-09-25 16:00 | NUR ---
DR ABURTO CAME TO SEE PT REGARDING CONSULT.
[2019-09-25 17:29] LABS: HEMATOCRIT 25.2 % (42-54)
--- NOTE | 2019-09-25 17:48 | NUR ---
RD NOTIFICATION RD CONSULTS DUE TO LOS X 8 DAYS. DX LIVER CIRRHOSIS, ASCITES. PO INTAKE 100% AND HAS GOOD APPETITE. LBM: 09/24. SKIN IS INTACT. LABS REVIEWED. MEDS REVIEWED. PT IS FAMILIAR WITH DIET AND NUTRITION RECOMMENDATIONS REGARDING HIS CONDITION. NO COMPLAINTS OF N/V/C/D AT THIS TIME. RD RECOMMENDS TO CONTINUE CURRENT DIET ADD 2GMNA TO DIET ORDER Addendum: 09/25/19 at [address] Amended: Links added.
--- NOTE | 2019-09-25 19:52 | NUR ---
SPOKE TO NAYELI FROM DR CARVAJAL OFFICE REGARDING GI CONSULT, REVIEWED LABS. PER NAYELI WILL LET DR CARVAJAL KNOW ABOUT THE CONSULT.
[2019-09-25 21:06] VITALS: BP 127/55
--- NOTE | 2019-09-25 21:58 | NUR ---
Refused lactulose. Had 3 BM's and feel like wants to defecate again.
--- NOTE | 2019-09-25 22:32 | NUR ---
Dr. Falcon (GI) called and asked the selling underwriter the reason for consult. Water Quality Assistant informed Dr. Falcon that pt. was having low hgb (6.9) for 2 days and was given blood transfusion for 2 days as well. Also, selling underwriter told the MD that no active bleeding seen. Dr. Falcon then replied that pt just had recent EGD and no active bleeding noted. Pt has liver cirrhosis and could be a myriad of reasons that causes anemia. Pt advised the selling underwriter that pt needs to continue taking lactulose. Pt to visit MD's clinic next week or so. Admitted MD to call Dr. Falcon for any questions needed.
[2019-09-26] VITALS: BP 121/54
[2019-09-26 04:00] VITALS: BP 115/56
[2019-09-26] MEDS: MIDODRINE HCL 5 MG TABLET PO SCH ×3 (04:56→20:33)
[2019-09-26] MEDS: ALBUMIN (HUMAN) 25% 100 ML IV SCH ×2 (04:57→13:44)
[2019-09-26 05:03] LABS: BASOPHILS % (AUTO) 0.5 % (0.0-5.0); EOSINOPHILS % (AUTO) 2.3 % (0.0-8.0); HEMATOCRIT 24.9 % (42-54); LYMPHOCYTES % (AUTO) 17.8 % (21.0-51.0); MEAN CORPUSCULAR HEMOGLOBIN 28.1 pg (27.0-33.0); MEAN CORPUSCULAR HGB CONC 31.7 g/dL (32.0-36.0); MEAN CORPUSCULAR VOLUME 88.6 fL (79-99); MONOCYTES % (AUTO) 11.1 % (3.0-13.0); NEUTROPHILS % (AUTO) 66.8 % (40.0-77.0); PLATELET COUNT (AUTO) 102 K/uL (130-400); RED BLOOD CELL COUNT(AUTO) 2.81 MIL/uL (4.50-6.20); RED CELL DISTRIBUTION WIDTH 20.9 % (11.0-15.5); WHITE BLOOD COUNT (AUTO) 7.4 K/uL (4.8-10.8)
[2019-09-26 05:08] LABS: CREATININE 1.7 mg/dL (0.5-1.5); POTASSIUM 4.6 mmol/L (3.5-5.1)
[2019-09-26] MEDS: INSULIN HUMULIN R 100 UNIT/ML 3ML SQ SCH ×4 (06:53→20:30)
[2019-09-26 08:17] VITALS: BP 123/52
[2019-09-26] MEDS: CEFTRIAXONE SODIUM 1 GM IVP SCH ×2 (09:20→20:29)
[2019-09-26] MEDS: THIAMINE HCL 100 MG TABLET PO SCH (09:20)
[2019-09-26] MEDS: FERROUS SULFATE 325 MG TABLET.DR PO SCH ×2 (09:20→20:29)
[2019-09-26] MEDS: PANTOPRAZOLE SODIUM 40 MG TABLET.DR PO SCH ×2 (09:20→20:29)
[2019-09-26] MEDS: FOLIC ACID/VITAMIN B COMP W-C 1 CAP TAB PO SCH (09:21)
[2019-09-26] MEDS: LACTULOSE 20 GM/30 ML UDCUP PO SCH ×2 (09:21→20:29)
[2019-09-26] MEDS: SODIUM CHLORIDE 1,000 MG TAB PO SCH (09:21)
[2019-09-26 11:25] VITALS: BP 133/62
[2019-09-26 16:21] VITALS: BP 116/51
[2019-09-26 20:00] VITALS: BP 114/52
[2019-09-27] VITALS: BP 138/58
[2019-09-27 04:00] VITALS: BP 114/54
[2019-09-27] MEDS: INSULIN HUMULIN R 100 UNIT/ML 3ML SQ SCH ×4 (05:43→21:00)
[2019-09-27 06:11] LABS: BASOPHILS % (AUTO) 0.6 % (0.0-5.0); EOSINOPHILS % (AUTO) 2.3 % (0.0-8.0); HEMATOCRIT 25.4 % (42-54); MEAN CORPUSCULAR HGB CONC 31.1 g/dL (32.0-36.0); MEAN CORPUSCULAR VOLUME 90.1 fL (79-99); MONOCYTES % (AUTO) 12.2 % (3.0-13.0); NEUTROPHILS % (AUTO) 62.8 % (40.0-77.0); PLATELET COUNT (AUTO) 109 K/uL (130-400); RED BLOOD CELL COUNT(AUTO) 2.82 MIL/uL (4.50-6.20); RED CELL DISTRIBUTION WIDTH 21.1 % (11.0-15.5); WHITE BLOOD COUNT (AUTO) 6.5 K/uL (4.8-10.8)
[2019-09-27] MEDS: MIDODRINE HCL 5 MG TABLET PO SCH ×3 (06:15→22:09)
[2019-09-27 06:21] LABS: CREATININE 1.6 mg/dL (0.5-1.5); POTASSIUM 4.4 mmol/L (3.5-5.1)
[2019-09-27 08:25] VITALS: BP 133/66
[2019-09-27] MEDS: LACTULOSE 20 GM/30 ML UDCUP PO SCH ×3 (09:00→22:09)
[2019-09-27] MEDS: CEFTRIAXONE SODIUM 1 GM IVP SCH ×2 (10:11→22:09)
[2019-09-27] MEDS: FERROUS SULFATE 325 MG TABLET.DR PO SCH ×2 (10:12→22:09)
[2019-09-27] MEDS: SODIUM CHLORIDE 1,000 MG TAB PO SCH (10:12)
[2019-09-27] MEDS: PANTOPRAZOLE SODIUM 40 MG TABLET.DR PO SCH ×2 (10:12→22:09)
[2019-09-27] MEDS: THIAMINE HCL 100 MG TABLET PO SCH (10:12)
[2019-09-27] MEDS: FOLIC ACID/VITAMIN B COMP W-C 1 CAP TAB PO SCH (10:12)
[2019-09-27 11:59] VITALS: BP 106/62
--- NOTE | 2019-09-27 13:55 | NUR ---
PHYSICIAN ROUNDS DR ABURTO ROUNDED MAY BE DISCHARGE PER HIM FOLLOW-UP IN 1 WEEK NO NEW ORDERS
--- NOTE | 2019-09-27 13:57 | NUR ---
PHYSICIAN ROUNDED DR HUMERA CARR, BMP IN AM , MAY DISCHARGE PER HIS SERVICE FOLLOW-UP IN 1-2 WEEKS
[2019-09-27 16:10] VITALS: BP 110/48
[2019-09-27 20:00] VITALS: BP 129/61
[2019-09-28] VITALS: BP 117/58
[2019-09-28 04:00] VITALS: BP 119/60
[2019-09-28 05:05] LABS: BASOPHILS % (AUTO) 0.5 % (0.0-5.0); EOSINOPHILS % (AUTO) 2.9 % (0.0-8.0); HEMATOCRIT 26.9 % (42-54); LYMPHOCYTES % (AUTO) 22.5 % (21.0-51.0); MEAN CORPUSCULAR HEMOGLOBIN 28.6 pg (27.0-33.0); MEAN CORPUSCULAR HGB CONC 31.2 g/dL (32.0-36.0); MEAN CORPUSCULAR VOLUME 91.5 fL (79-99); MONOCYTES % (AUTO) 11.4 % (3.0-13.0); NEUTROPHILS % (AUTO) 61.9 % (40.0-77.0); PLATELET COUNT (AUTO) 120 K/uL (130-400); RED BLOOD CELL COUNT(AUTO) 2.94 MIL/uL (4.50-6.20); RED CELL DISTRIBUTION WIDTH 21.8 % (11.0-15.5); WHITE BLOOD COUNT (AUTO) 6.5 K/uL (4.8-10.8)
[2019-09-28 05:18] LABS: CREATININE 1.8 mg/dL (0.5-1.5); POTASSIUM 4.7 mmol/L (3.5-5.1)
[2019-09-28] MEDS: MIDODRINE HCL 5 MG TABLET PO SCH (05:31)
[2019-09-28] MEDS: INSULIN HUMULIN R 100 UNIT/ML 3ML SQ SCH (05:37)
[2019-09-28 08:00] VITALS: BP 113/58
[2019-09-28] MEDS: LACTULOSE 20 GM/30 ML UDCUP PO SCH (09:00)
[2019-09-28] MEDS: FERROUS SULFATE 325 MG TABLET.DR PO SCH (09:08)
[2019-09-28] MEDS: CEFTRIAXONE SODIUM 1 GM IVP SCH (09:08)
[2019-09-28] MEDS: THIAMINE HCL 100 MG TABLET PO SCH (09:08)
[2019-09-28] MEDS: PANTOPRAZOLE SODIUM 40 MG TABLET.DR PO SCH (09:09)
[2019-09-28] MEDS: FOLIC ACID/VITAMIN B COMP W-C 1 CAP TAB PO SCH (09:09)
[2019-09-28] MEDS: SODIUM CHLORIDE 1,000 MG TAB PO SCH (09:09)
--- NOTE | 2019-09-28 10:30 | NUR ---
Nutrition Follow-up: Pt. asleep during RD visit. Pt. on 2gm Na 75gm CCD Soft Wallace diet, 1500ml F.R. Pt. with good p.o. intake as noted in EMR. Labs reviewed(Alb 1.5, BUN 28, Cret 1.8, GFR 41, Na 132, BG 99). SR-19, excoriation to buttocks. Pt. with 1+ edema to jeanna. lower ext. LBM: 09/27/2019. Pt. with severe visceral protein depletion. Protein supplementation contraindicated at this time due to elevated renal labs. Recommendations: 1) Continue current diet. 2) Continue to monitor pt's nutritional status. 3) Consult RD as nutrition concerns arise. Addendum: 09/28/19 at [address] Amended: Links added.
[2019-09-28 12:00] VITALS: BP 121/61
[2019-09-28] MEDS ORDERED: THIA100T91 PO (14:01)
[2019-09-28] MEDS ORDERED: PANT40TA PO (14:01)
[2019-09-28] MEDS ORDERED: FERR324T4 PO (14:01)
[2019-09-28 16:06] VITALS: BP 116/55
== END 2019-09-28 17:45 | disposition home or self-care (01) | DRG 871 ==
LOC: EDH 14:24 → EDHIP 17:01 → 2AH 19:52 → 3AH 09-18 15:53
PROVIDERS: ADMIT Internal Medicine; ATTEND Internal Medicine
PROC: 0W9G3ZZ Drainage of Peritoneal Cavity, Percutaneous Approach (ICD-10-PCS; 2019-09-17)
PROC: 30233N1 Transfusion of Nonautologous Red Blood Cells into Peripheral Vein, Percutaneous Approach (ICD-10-PCS; principal; 2019-09-19)
DX: A41.51 Sepsis due to Escherichia coli [E. coli] (principal); K76.7 Hepatorenal syndrome; G93.41 Metabolic encephalopathy; J18.9 Pneumonia, unspecified organism; E87.2 Acidosis; N39.0 Urinary tract infection, site not specified; E87.1 Hypo-osmolality and hyponatremia; Z68.44 Body mass index [BMI] 60.0-69.9, adult; N17.9 Acute kidney failure, unspecified; Z16.24 Resistance to multiple antibiotics; K72.90 Hepatic failure, unspecified without coma; K70.31 Alcoholic cirrhosis of liver with ascites; E87.6 Hypokalemia; D69.59 Other secondary thrombocytopenia; D64.9 Anemia, unspecified; E11.22 Type 2 diabetes mellitus with diabetic chronic kidney disease; E66.01 Morbid (severe) obesity due to excess calories; E78.5 Hyperlipidemia, unspecified; F10.20 Alcohol dependence, uncomplicated; I12.9 Hypertensive chronic kidney disease with stage 1 through stage 4 chronic kidney disease, or unspecified chronic kidney disease; N18.9 Chronic kidney disease, unspecified; Z74.01 Bed confinement status; Z91.19 Patient's noncompliance with other medical treatment and regimen; Z87.891 Personal history of nicotine dependence; Z83.3 Family history of diabetes mellitus; Z82.5 Family history of asthma and other chronic lower respiratory diseases; Z82.3 Family history of stroke; Z82.0 Family history of epilepsy and other diseases of the nervous system; Z82.49 Family history of ischemic heart disease and other diseases of the circulatory system
CPT/HCPCS: 36415; 36430; 49083; 71045; 74176; 80048; 80053; 81001; 82105; 82140; 82172; 82247; 82270; 82550; 82570; 82948; 82977; 83010; 83540; 83550; 83605; 83735; 83874; 83883; 83930; 83935; 84100; 84145; 84156; 84300; 84443; 84460; 84484; 84550; 85014; 85018; 85025; 85060; 85610; 85730; 86334; 86701; 86704; 86706; 86850; 86900; 86901; 86922; 87040; 87071; 87077; 87088; 87186; 87205; 87340; 87390; 87522; 87804; 88108; 88341; 88342; 89051; 93005; 94640; 94664; 97039; 99291; C9113; G0378; J0696; J0885; J1815; J2185; J2543; J3430; J3490; J7030; P9016; P9046

== ENCOUNTER → 2019-10-02 | Outpatient (CLI) | payer MEDICARE ==
[~2019-10-02] MED LIST changes: +ALBUMIN (HUMAN) 25% 200 ML IV SCH; +FERR324T4 PO; -FURO40TA5 PO; -IRON TAB; +PANT40TA PO; -SPIR50TA PO; -SPIR50TA5 PO; +THIA100T91 PO
[2019-10-02 10:35] LABS: HEMATOCRIT 26.6 % (42-54); MEAN CORPUSCULAR HEMOGLOBIN 28.9 pg (27.0-33.0); MEAN CORPUSCULAR HGB CONC 30.1 g/dL (32.0-36.0); PLATELET COUNT (AUTO) 95 K/uL (130-400); RED BLOOD CELL COUNT(AUTO) 2.77 MIL/uL (4.50-6.20); RED CELL DISTRIBUTION WIDTH 22.4 % (11.0-15.5); WHITE BLOOD COUNT (AUTO) 4.5 K/uL (4.8-10.8)
[2019-10-02 10:50] LABS: INR 1.2 (0.85-1.15); PROTHROMBIN TIME 12.9 SEC (9.6-11.6)
--- NOTE | 2019-10-02 11:00 | NUR ---
U/S GD PARACENTESIS PROCEDURE PERFORMED BY DR. DALE. PUNCTURE SITE LEFT LOWER QUADRANT OF ABDOMEN AND PATIENT TOLERATED PROCEDURE WELL. TOTAL REMOVED 5.2 LITERS OF CLOUDY YELLOW FLUID. END OF PROCEDURE AT 1140. CATHETER REMOVED AND DRESSING APPLIED. NO BLEEDING NOTED. ALBUMIN 25% 50 GRAMS GIVEN DURING PROCEDURE PER [facility] ALBUMIN PROTOCOL. LEFT ANTECUBITAL PIV DC'D, BANDAID APPLIED, DRESSING DRY AND INTACT. DISCHARGE INSTRUCTIONS GIVEN TO PATIENT. PATIENT VERBALIZED UNDERSTANDING. PT DISCHARGED VIA W/C, STABLE, AAO X3 WITH NO C/O PAIN@ 1220. SPECIMEN SENT TO LAB.
[2019-10-02 11:20] LABS: EOSINOPHILS % (MANUAL) 1 % (1-6); LYMPHOCYTES % (MANUAL) 16 % (22-44); MONOCYTES % (MANUAL) 10 % (2-9); SEGMENTED NEUTROPHILS % 73 % (40-70)
[2019-10-02 11:21] LABS: MAN.DIFF COMMENT-IMPRESSION MANUAL DIFFERENTIAL; PLATELET MORPHOLOGY COMMENT DECREASED
[2019-10-02 12:36] LABS: ALBUMIN 2.1 g/dL (3.5-5.0); BILIRUBIN,TOTAL 1.6 mg/dL (0.2-1.0); CREATININE 1.6 mg/dL (0.5-1.5); POTASSIUM 4.6 mmol/L (3.5-5.1); TOTAL PROTEIN, SERUM 8.2 g/dL (6.0-8.3)
[2019-10-02 15:53] LABS: APPEARANCE BODY FLUID CLOUDY (CLEAR); BODY FLUID WBC 55 /cu. mm.; COLOR,BODY FLUID DARK YELLOW (LT YELLOW); SPECIMENTYPE,BODY FLUID ASCITES; TOTAL VOLUME,BODY FLUID 5200 mL
[2019-10-02 15:54] LABS: BODY FLUID RBC 1950 /cu. mm.
[2019-10-02 16:59] LABS: BF LYMPHOCYTE 92 %
== END | disposition home or self-care (01) ==
LOC: RAH 10:00
PROVIDERS: ATTEND Internal Medicine Gastroenterology
DX: K70.31 Alcoholic cirrhosis of liver with ascites (principal); F41.9 Anxiety disorder, unspecified; Z79.899 Other long term (current) drug therapy; Z72.89 Other problems related to lifestyle; Z87.891 Personal history of nicotine dependence; Z82.49 Family history of ischemic heart disease and other diseases of the circulatory system; Z83.3 Family history of diabetes mellitus; Z82.5 Family history of asthma and other chronic lower respiratory diseases
CPT/HCPCS: 36415; 49083; 80053; 85025; 85610; 87071; 87205; 89051; A4215; P9046; 96365

== ENCOUNTER → 2019-10-08 | Outpatient (CLI) | payer MEDICARE ==
[~2019-10-08] MED LIST changes: -ALBUMIN (HUMAN) 25% 200 ML IV SCH
--- NOTE | 2019-10-08 11:20 | NUR ---
U/S GD PARACENTESIS PROCEDURE PERFORMED BY DR. Mini SANDOVAL. PUNCTURE SITE LEFT LOWER QUADRANT OF ABDOMEN AND PATIENT TOLERATED PROCEDURE WELL. TOTAL REMOVED 3.8 LITERS OF CLOUDY YELLOW FLUID. END OF PROCEDURE AT 1100. CATHETER REMOVED AND DRESSING APPLIED. NO BLEEDING NOTED. PATIENT DID NOT MEET [facility] ALBUMIN PROTOCOL. DRESSING DRY AND INTACT. DISCHARGE INSTRUCTIONS GIVEN TO PATIENT. PATIENT VERBALIZED UNDERSTANDING. PT DISCHARGED VIA W/C, STABLE, AAO X3 WITH NO C/O PAIN@ 1220. SPECIMEN SENT TO LAB.
[2019-10-08 15:51] LABS: COLOR,BODY FLUID YELLOW (LT YELLOW); SPECIMENTYPE,BODY FLUID ASCITES
[2019-10-08 15:52] LABS: APPEARANCE BODY FLUID CLOUDY (CLEAR); BODY FLUID WBC 77 /cu. mm.; TOTAL VOLUME,BODY FLUID 3800 mL
[2019-10-08 16:24] LABS: BF LYMPHOCYTE 83 %; BF MESOTHELIAL 2 %
[2019-10-08 16:49] LABS: BODY FLUID RBC 1875 /cu. mm.
== END | disposition home or self-care (01) ==
LOC: RAH 10:10
PROVIDERS: ATTEND Internal Medicine Gastroenterology
DX: K70.31 Alcoholic cirrhosis of liver with ascites (principal); E66.01 Morbid (severe) obesity due to excess calories; Z98.890 Other specified postprocedural states
CPT/HCPCS: 49083; 87071; 87205; 89051; A4215

== ENCOUNTER → 2019-10-15 | Outpatient (CLI) | payer MEDICARE ==
[~2019-10-15] MED LIST changes: +ALBUMIN (HUMAN) 25% 100 ML IV SCH
--- NOTE | 2019-10-15 11:30 | NUR ---
U/S GD PARACENTESIS PROCEDURE PERFORMED BY DR. COLEMAN. PUNCTURE SITE LEFT LOWER QUADRANT OF ABDOMEN AND PATIENT TOLERATED PROCEDURE WELL. TOTAL REMOVED 3.3 LITERS OF CLOUDY YELLOW FLUID. END OF PROCEDURE AT 1110 CATHETER REMOVED AND DRESSING APPLIED. NO BLEEDING NOTED. DRESSING DRY AND INTACT. DISCHARGE INSTRUCTIONS GIVEN TO PATIENT. PATIENT VERBALIZED UNDERSTANDING. PT DISCHARGED VIA W/C, STABLE, AAO X3 WITH NO C/O PAIN@ 1130. SPECIMEN SENT TO LAB. PIV REMOVED TO RIGHT HAND SITE ASYMPTOMATIC. CATHETER INTACT
[2019-10-15 17:16] LABS: APPEARANCE BODY FLUID CLOUDY (CLEAR); BODY FLUID WBC 33 /cu. mm.; COLOR,BODY FLUID LT YELLOW (LT YELLOW); SPECIMENTYPE,BODY FLUID ASCITES; TOTAL VOLUME,BODY FLUID 3300 mL
[2019-10-15 17:17] LABS: BODY FLUID RBC 1387 /cu. mm.
[2019-10-15 18:20] LABS: BF EOSINOPHIL 1 %; BF LYMPHOCYTE 86 %; BF MONOCYTE 13 %
== END | disposition home or self-care (01) ==
LOC: RAH 10:02
PROVIDERS: ATTEND Internal Medicine Gastroenterology
DX: K70.31 Alcoholic cirrhosis of liver with ascites (principal); E11.9 Type 2 diabetes mellitus without complications; I10 Essential (primary) hypertension; E66.01 Morbid (severe) obesity due to excess calories; J45.909 Unspecified asthma, uncomplicated; F15.11 Other stimulant abuse, in remission; F10.11 Alcohol abuse, in remission; Z98.890 Other specified postprocedural states; Z90.49 Acquired absence of other specified parts of digestive tract; Z79.899 Other long term (current) drug therapy; Z82.49 Family history of ischemic heart disease and other diseases of the circulatory system
CPT/HCPCS: 49083; 89051; 96365; A4215; P9046

== ENCOUNTER → 2019-10-22 | Outpatient (CLI) | payer MEDICARE ==
--- NOTE | 2019-10-22 11:15 | NUR ---
U/S GD PARACENTESIS PROCEDURE PERFORMED BY DR. COLEMAN. PUNCTURE SITE LEFT LOWER QUADRANT OF ABDOMEN AND PATIENT TOLERATED PROCEDURE WELL. TOTAL REMOVED 4.6 LITERS OF CLOUDY YELLOW FLUID. END OF PROCEDURE AT 1045 CATHETER REMOVED AND DRESSING APPLIED. NO BLEEDING NOTED. DRESSING DRY AND INTACT. DISCHARGE INSTRUCTIONS GIVEN TO PATIENT. PATIENT VERBALIZED UNDERSTANDING. PT DISCHARGED VIA W/C, STABLE, AAO X3 WITH NO C/O PAIN@ 1115. SPECIMEN SENT TO LAB.
[2019-10-22 15:53] LABS: APPEARANCE BODY FLUID SLIGHTLY CLOUDY (CLEAR); COLOR,BODY FLUID LT YELLOW (LT YELLOW); SPECIMENTYPE,BODY FLUID ASCITES; TOTAL VOLUME,BODY FLUID 4600 mL
[2019-10-22 15:54] LABS: BODY FLUID WBC 83 /cu. mm.
[2019-10-22 15:56] LABS: BODY FLUID RBC 936 /cu. mm.
[2019-10-22 17:11] LABS: BF LYMPHOCYTE 40 %; BF MONOCYTE 11 %
== END | disposition home or self-care (01) ==
LOC: RAH 09:57
PROVIDERS: ATTEND Internal Medicine Gastroenterology
DX: K70.31 Alcoholic cirrhosis of liver with ascites (principal); F41.9 Anxiety disorder, unspecified; Z79.899 Other long term (current) drug therapy; Z87.891 Personal history of nicotine dependence; Z72.89 Other problems related to lifestyle; Z82.49 Family history of ischemic heart disease and other diseases of the circulatory system; Z83.3 Family history of diabetes mellitus; Z82.5 Family history of asthma and other chronic lower respiratory diseases
CPT/HCPCS: 36415; 49083; 82140; 89051; A4215; P9046

== ENCOUNTER → 2019-10-29 | Outpatient (CLI) | payer MEDICARE ==
[~2019-10-29] MED LIST changes: -ALBUMIN (HUMAN) 25% 100 ML IV SCH; +ALBUMIN (HUMAN) 25% 200 ML IV SCH
--- NOTE | 2019-10-29 11:10 | NUR ---
U/S GD PARACENTESIS PROCEDURE PERFORMED BY DR. VITAL. PUNCTURE SITE RIGHT UPPER QUADRANT OF ABDOMEN AND PATIENT TOLERATED PROCEDURE WELL. TOTAL REMOVED 3.9 LITERS OF CLOUDY YELLOW FLUID. END OF PROCEDURE AT 1140. CATHETER REMOVED AND DRESSING APPLIED. NO BLEEDING NOTED. DRESSING DRY AND INTACT. DISCHARGE INSTRUCTIONS GIVEN TO PATIENT. PATIENT VERBALIZED UNDERSTANDING. PT DISCHARGED VIA W/C, STABLE, AAO X3 WITH NO C/O PAIN @ 1200. SPECIMEN SENT TO LAB.
[2019-10-29 15:57] LABS: APPEARANCE BODY FLUID CLOUDY (CLEAR); SPECIMENTYPE,BODY FLUID ASCITES
[2019-10-29 15:58] LABS: BODY FLUID RBC 2155 /cu. mm.; BODY FLUID WBC 36 /cu. mm.; COLOR,BODY FLUID ORANGE (LT YELLOW); TOTAL VOLUME,BODY FLUID 3900 mL
[2019-10-29 16:19] LABS: BF LYMPHOCYTE 67 %; BF MONOCYTE 3 %
== END | disposition home or self-care (01) ==
LOC: RAH 09:52
PROVIDERS: ATTEND Internal Medicine Gastroenterology
DX: K70.31 Alcoholic cirrhosis of liver with ascites (principal); Z79.899 Other long term (current) drug therapy; Z87.891 Personal history of nicotine dependence; Z72.89 Other problems related to lifestyle; Z82.49 Family history of ischemic heart disease and other diseases of the circulatory system; Z83.3 Family history of diabetes mellitus; Z82.5 Family history of asthma and other chronic lower respiratory diseases
CPT/HCPCS: 49083; 89051; A4215

== ENCOUNTER → 2019-11-05 | Outpatient (CLI) | payer MEDICARE ==
[~2019-11-05] MED LIST changes: +ALBUMIN (HUMAN) 25% 100 ML IV ONE; -ALBUMIN (HUMAN) 25% 200 ML IV SCH
[2019-11-05 10:32] LABS: BASOPHILS % (AUTO) 0.2 % (0.0-5.0); EOSINOPHILS % (AUTO) 0.4 % (0.0-8.0); HEMATOCRIT 23.7 % (42-54); LYMPHOCYTES % (AUTO) 12.7 % (21.0-51.0); MEAN CORPUSCULAR HEMOGLOBIN 32.3 pg (27.0-33.0); MEAN CORPUSCULAR HGB CONC 31.2 g/dL (32.0-36.0); MEAN CORPUSCULAR VOLUME 103.5 fL (79-99); MONOCYTES % (AUTO) 5.9 % (3.0-13.0); NEUTROPHILS % (AUTO) 79.7 % (40.0-77.0); PLATELET COUNT (AUTO) 116 K/uL (130-400); RED BLOOD CELL COUNT(AUTO) 2.29 MIL/uL (4.50-6.20); RED CELL DISTRIBUTION WIDTH 15.6 % (11.0-15.5); WHITE BLOOD COUNT (AUTO) 5.4 K/uL (4.8-10.8)
[2019-11-05 10:47] LABS: CREATININE 1.7 mg/dL (0.5-1.5); POTASSIUM 4.6 mmol/L (3.5-5.1)
[2019-11-05 10:49] LABS: INR 1.12 (0.85-1.15); PARTIAL THROMBOPLASTIN TIME 30.3 SEC (26.3-35.5)
[2019-11-05 10:51] LABS: ALBUMIN 1.9 g/dL (3.5-5.0); BILIRUBIN,TOTAL 0.4 mg/dL (0.2-1.0)
--- NOTE | 2019-11-05 10:55 | NUR ---
U/S GD PARACENTESIS PROCEDURE PERFORMED BY DR. SANDOVAL. PUNCTURE SITE LEFT LOWER QUADRANT OF ABDOMEN AND PATIENT TOLERATED PROCEDURE WELL. TOTAL REMOVED 4.1 LITERS OF CLOUDY YELLOW FLUID. END OF PROCEDURE AT 1115. CATHETER REMOVED AND DRESSING APPLIED. NO BLEEDING NOTED. DRESSING DRY AND INTACT. DISCHARGE INSTRUCTIONS GIVEN TO PATIENT. PATIENT VERBALIZED UNDERSTANDING. PT DISCHARGED VIA W/C, STABLE, AAO X3 WITH NO C/O PAIN. SPECIMEN SENT TO LAB.
[2019-11-05 15:30] LABS: APPEARANCE BODY FLUID SLIGHTLY CLOUDY (CLEAR); BODY FLUID WBC 48 /cu. mm.; COLOR,BODY FLUID LT YELLOW (LT YELLOW); SPECIMENTYPE,BODY FLUID ASCITES; TOTAL VOLUME,BODY FLUID 4100 mL
[2019-11-05 15:31] LABS: BODY FLUID RBC 975 /cu. mm.
[2019-11-05 15:47] LABS: BF LYMPHOCYTE 88 %; BF MESOTHELIAL 2 %
== END ==
LOC: RAH 10:01
PROVIDERS: ATTEND Internal Medicine Gastroenterology
DX: R18.8 Other ascites (principal); Z79.01 Long term (current) use of anticoagulants
CPT/HCPCS: 36415; 49083; 80053; 85025; 85610; 85730; 89051; A4215; P9046

== ENCOUNTER 2019-11-09 22:01 | Inpatient (IN) | payer MEDICARE ==
[~2019-11-09] VITALS: Ht 170.2 cm; Wt 194.5 kg
[~2019-11-09 22:01] MED LIST changes: -ALBUMIN (HUMAN) 25% 100 ML IV ONE
[2019-11-09 23:42] LABS: HEMATOCRIT 22.6 % (42-54); MEAN CORPUSCULAR HEMOGLOBIN 33.2 pg (27.0-33.0); MEAN CORPUSCULAR HGB CONC 32.7 g/dL (32.0-36.0); MEAN CORPUSCULAR VOLUME 101.3 fL (79-99); PLATELET COUNT (AUTO) 134 K/uL (130-400); RED BLOOD CELL COUNT(AUTO) 2.23 MIL/uL (4.50-6.20); RED CELL DISTRIBUTION WIDTH 16.1 % (11.0-15.5)
[2019-11-09 23:46] LABS: WHITE BLOOD COUNT (AUTO) 35.1 K/uL (4.8-10.8)
[2019-11-09 23:54] LABS: INR 1.4 (0.85-1.15); PARTIAL THROMBOPLASTIN TIME 33.3 SEC (26.3-35.5); PROTHROMBIN TIME 14.9 SEC (9.6-11.6)
[2019-11-09 23:57] LABS: ALBUMIN 1.8 g/dL (3.5-5.0); BILIRUBIN,TOTAL 1.1 mg/dL (0.2-1.0); CREATININE 3.9 mg/dL (0.5-1.5); POTASSIUM 4.6 mmol/L (3.5-5.1); TOTAL PROTEIN, SERUM 7.1 g/dL (6.0-8.3)
[2019-11-10] VITALS (12 sets, daily range): BP systolic 84–115; BP diastolic 31–50
[2019-11-10 00:20] LABS: BAND NEUTROPHILS % (MANUAL) 7 % (0-2); LYMPHOCYTES % (MANUAL) 4 % (22-44); MONOCYTES % (MANUAL) 2 % (2-9); SEGMENTED NEUTROPHILS % 87 % (40-70)
[2019-11-10 00:21] LABS: MAN.DIFF COMMENT-IMPRESSION MANUAL DIFFERENTIAL; PLATELET MORPHOLOGY COMMENT ADEQUATE
[2019-11-10 00:34] LABS: BILIRUBIN,URINE Small (NEGATIVE); COLOR,URINE Dark Yellow (YELLOW); GLUCOSE, URINE (UA) Negative (NEGATIVE); KETONES,URINE Trace mg/dL (NEGATIVE); LEUKOCYTE ESTERASE ,URINE Large (NEGATIVE); NITRATE,URINE Negative (NEGATIVE); OCCULT BLOOD,URINE Large (NEGATIVE); PROTEIN,URINE POS 2+ mg/dL (NEGATIVE)
[2019-11-10 00:56] LABS: APPEARANCE,URINE CLOUDY (CLEAR)
[2019-11-10 01:01] LABS: BACTERIA,URINE Many /HPF (None Seen); WBC,URINE 26-50 /HPF (0-1)
[2019-11-10 01:02] LABS: SQUAMOUS EPITHELIAL CELL,UR Few /HPF (0-2)
[2019-11-10] MEDS ORDERED: LACTULOSE 20 GM/30 ML UDCUP ONE (01:17)
[2019-11-10] MEDS ORDERED: MORPHINE SULFATE 2 MG/ML 1ML SYG IV PRN ×2 (01:45→14:00)
[2019-11-10] MEDS ORDERED: ONDANSETRON HCL 4 MG/2 ML VIAL IV PRN (01:45)
[2019-11-10] MEDS: LACTULOSE 20 GM/30 ML UDCUP PO SCH ×2 (02:00→10:00)
[2019-11-10] MEDS ORDERED: CEFTRIAXONE SODIUM 1 GM IV SCH (02:00)
[2019-11-10] MEDS ORDERED: CEFTRIAXONE SODIUM 1 GM ONE (02:25)
[2019-11-10 02:53] LABS: AMPHET/METH SCREEN,URINE NEGATIVE (NEGATIVE); BARBITURATE SCREEN, URINE NEGATIVE (NEGATIVE); BENZODIAZEPINES SCREEN,URINE NEGATIVE (NEGATIVE); CANNABINOID SCREEN,URINE POSITIVE (NEGATIVE); COCAINE SCREEN,URINE NEGATIVE (NEGATIVE); OPIATE SCREEN,URINE NEGATIVE (NEGATIVE); PHENCYCLIDINE SCREEN,URINE NEGATIVE (NEGATIVE)
[2019-11-10 02:59] LABS: % IRON SATURATION 6.4 % (30-44)
--- NOTE | 2019-11-10 03:00 | NUR ---
REPORT FROM EFRAIN RUDD. PT ADMITTED DUE TO ANEMIA, OB POSITIVE
--- NOTE | 2019-11-10 03:20 | NUR ---
PT ARRIVED FROM ER. PT UNABLE TO TRANSFER ON HIS OWN. REQUIRED 4 PPL TO TRANSFER. PT SEEMS DROWSY. ABLE TO ANSWER TO QUESTIONS. AT TIMES HAS MUMBLED WORDS. ABLE TO STATES MEDICAL HISTORY. MONITOR HG. PT STATES HAD A FALL AT HOME DUE TO GBW.
[2019-11-10] MEDS ORDERED: SPIR50TA5 PO (04:00)
[2019-11-10] MEDS ORDERED: FURO20TA4 PO (04:00)
[2019-11-10] MEDS ORDERED: LACT10SO62 PO (04:00)
[2019-11-10] MEDS: INSULIN HUMULIN R 100 UNIT/ML 3ML SQ SCH ×3 (05:25→18:00)
[2019-11-10 05:51] LABS: HEMATOCRIT 21.7 % (42-54)
--- NOTE | 2019-11-10 06:10 | NUR ---
PT CONSENTED FOR BLOOD TRANSFUSION.
[2019-11-10] MEDS: IPRATROPIUM/ALBUTEROL SULFATE 3 ML SOLUTION IH PRN ×2 (06:31→18:36)
[2019-11-10] MEDS ORDERED: FAMOTIDINE 20MG TAB 20 MG TAB PO SCH (09:00)
[2019-11-10] MEDS ORDERED: OCTREOTIDE ACETATE 1,250 MCG in SODIUM CHLORIDE 0.9% 250 ML IV SCH (10:45)
[2019-11-10] MEDS: PANTOPRAZOLE SODIUM 80 MG in SODIUM CHLORIDE 0.9% 100 ML IV SCH ×2 (11:55→20:11)
[2019-11-10 13:09] LABS: HEMATOCRIT 21.5 % (42-54)
[2019-11-10] MEDS ORDERED: FUROSEMIDE 10 MG/ML 2ML VIAL IV SCH (13:30)
[2019-11-10] MEDS ORDERED: LACTULOSE 20 GM/30 ML UDCUP PO STA (14:12)
[2019-11-10] MEDS: LACTULOSE 20 GM/30 ML UDCUP PR SCH ×2 (14:25→20:14)
--- NOTE | 2019-11-10 15:29 | NUR ---
TRANSFERRED PATIENT TO ICU ORDERED BY DR. MONTALVO FOR CLOSER MONITORING. LACTULOSE ENEMA GIVEN WITH SMALL SPECKS OF BM OUTPUT. PATIENT HAS GOTTEN MORE AWAKE TOWARDS THE END OF THE DAY. DR.'S TOLLIVER AND JELLY WERE MADE AWARE OF THE NEW CONSULT. PATIENT WAS GIVEN A UNIT OF [facility] THIS AM. RECHECK HH LEVEL OF 7.0/21.[address] MONTALVO FOR POSSIBLE ACTIVE BLEEDING. PPI AND SANDOSTATIN DRIPS WERE ALSO INITIATED. 2ND UNIT OF PRBC IS CURRENTLY INFUSING. PT WILL NEED ANOTHER UNIT AFTER THIS. 3 IV SITES ARE PATENT. NO C/O CHEST PAIN NOR SOB. SBAR REPORT HANDED TO BECKA RUDD.
--- NOTE | 2019-11-10 15:30 | NUR ---
PT TRANSFERRED FROM 422 TO ICU [id number], REPORT RECEIVED FROM LETITIA RUDD. RBC'S INFUSING. PENDING 1 UNIT AFTER THIS ONE. PATIENT HAS RECEIVED LACTULOSE ID ORDERED. CURRENT BP 103/41, HR 86, SPO2 97% ON RA. SR WITH OCCASIONAL PVC'S AND PAC'S. WILL CONTINUE TO MONITOR
[2019-11-10] MEDS ORDERED: GLUCAGON 1MG KIT 1 MG ML IM PRN (17:30)
[2019-11-10] MEDS ORDERED: DEXTROSE 50%-WATER 50 ML DISP.SYRIN IV PRN (17:30)
--- NOTE | 2019-11-10 19:30 | NUR ---
HOSPITALIST CALLED AJ DEVELOPMENT TECHNICIAN WITH BLOOD CULTURE RESULTS ASKED TO CALL DR. TOLLIVER FOR RECOMMENDATION.
--- NOTE | 2019-11-10 19:50 | NUR ---
DR. TOLLIVER MESSAGE LEFT AT THIS TIME PENDING CALL BACK.
--- NOTE | 2019-11-10 20:30 | NUR ---
DR. SHAREE TOLLIVER NOTIFIED OF BLOOD CULTURE RESULTS. NEW ORDERS RECEIVED AND WILL BE CARRIED OUT.
[2019-11-10] MEDS: MEROPENEM 1 GM VIAL IVP SCH ×2 (20:51→20:52)
[2019-11-10 21:43] LABS: HEMATOCRIT 26.6 % (42-54)
[2019-11-11] VITALS (17 sets, daily range): BP systolic 92–130; BP diastolic 40–62
[2019-11-11 04:02] LABS: BASOPHILS % (AUTO) 0.2 % (0.0-5.0); EOSINOPHILS % (AUTO) 0.5 % (0.0-8.0); LYMPHOCYTES % (AUTO) 6.5 % (21.0-51.0); MEAN CORPUSCULAR HEMOGLOBIN 30.9 pg (27.0-33.0); MEAN CORPUSCULAR HGB CONC 32.4 g/dL (32.0-36.0); MEAN CORPUSCULAR VOLUME 95.4 fL (79-99); MONOCYTES % (AUTO) 11.4 % (3.0-13.0); NUCLEATED RED BLOOD CELLS 0.2 % (0.0-0.19); PLATELET COUNT (AUTO) 96 K/uL (130-400); RED BLOOD CELL COUNT(AUTO) 2.62 MIL/uL (4.50-6.20); RED CELL DISTRIBUTION WIDTH 17.9 % (11.0-15.5); WHITE BLOOD COUNT (AUTO) 12.9 K/uL (4.8-10.8)
[2019-11-11 04:14] LABS: POTASSIUM 4.8 mmol/L (3.5-5.1)
[2019-11-11] MEDS: LACTULOSE 20 GM/30 ML UDCUP PR SCH (05:06)
--- NOTE | 2019-11-11 05:30 | NUR ---
BM AFTER ENEMA ATTEMPT PT IS UNABLE TO RETAIN LACTULOSE. PT DID HAVE A SOLID DARK BROWN BM. WILL CONTINUE TO MONITOR.
[2019-11-11] MEDS: INSULIN HUMULIN R 100 UNIT/ML 3ML SQ SCH ×4 (05:48→18:00)
[2019-11-11] MEDS: PANTOPRAZOLE SODIUM 80 MG in SODIUM CHLORIDE 0.9% 100 ML IV SCH (05:49)
[2019-11-11] MEDS: IPRATROPIUM/ALBUTEROL SULFATE 3 ML SOLUTION IH PRN ×2 (06:08→18:48)
[2019-11-11] MEDS: LACTULOSE 20 GM/30 ML UDCUP PO SCH ×3 (08:14→22:45)
[2019-11-11] MEDS: ALBUMIN (HUMAN) 25% 100 ML IV SCH ×3 (08:14→22:45)
[2019-11-11] MEDS: MEROPENEM 1 GM VIAL IVP SCH ×2 (08:15→20:09)
[2019-11-11] MEDS: PANTOPRAZOLE 40 MG/VIAL IVP SCH ×2 (08:31→20:09)
[2019-11-11 09:44] LABS: HEMATOCRIT 25.8 % (42-54)
[2019-11-11] MEDS ORDERED: COMPOUND IV MISC 1 EACH IVSOLN MISC PRN (10:45)
[2019-11-11] MEDS ORDERED: MIDODRINE HCL 5 MG TABLET PO SCH (10:45)
[2019-11-11] MEDS ORDERED: IRON SUCROSE COMPLEX 100 MG in SODIUM CHLORIDE 0.9% 50 ML IV SCH (10:45)
[2019-11-11] MEDS ORDERED: EPOETIN ALFA 10,000 UNIT/ML VIAL SQ SCH (10:45)
[2019-11-11] MEDS: IRON SUCROSE COMPLEX 100 MG in SODIUM CHLORIDE 0.9% 50 ML IV SCH (11:46)
[2019-11-11] MEDS: FUROSEMIDE 10 MG/ML 2ML VIAL IV SCH ×2 (11:51→22:45)
[2019-11-11] MEDS: MIDODRINE HCL 5 MG TABLET PO SCH ×2 (14:40→20:09)
--- NOTE | 2019-11-11 17:17 | NUR ---
cm note spoke to pt , resides at home with sister darrick gillette, was able to ambulate with walker with wheels prior to admit. has provider 4hrs daily. sister takes pt to via private car. but has been weaker since he fell on 11/10/19. pt states he prefers to go to home setting, but is agreeable to facility for rehab if needed. Addendum: 11/11/19 at 1720 by RADHA CEE CM Amended: Links added.
[2019-11-11] MEDS: RIFAXIMIN 550 MG TABLET PO SCH (20:09)
[2019-11-12] VITALS (13 sets, daily range): BP systolic 107–145; BP diastolic 45–66
--- NOTE | 2019-11-12 01:00 | NUR ---
BEDBATH GIVEN AT THIS TIME. PT HAS LARGE AMOUNT OF LOOSE BM. TARRY COLORED. LACTULOSE BEING GIVEN.
[2019-11-12] MEDS ORDERED: KETOROLAC TROMETHAMINE 15MG/ML IV SCH (02:30)
--- NOTE | 2019-11-12 02:30 | NUR ---
PT C/O HEADACHE. TORADOL X1 DOSE IV ORDERED BY ALONZO LANGLEY NP.
[2019-11-12 05:04] LABS: HEMATOCRIT 24.5 % (42-54); MEAN CORPUSCULAR HEMOGLOBIN 31.6 pg (27.0-33.0); MEAN CORPUSCULAR HGB CONC 32.7 g/dL (32.0-36.0); MEAN CORPUSCULAR VOLUME 96.8 fL (79-99); PLATELET COUNT (AUTO) 87 K/uL (130-400); RED BLOOD CELL COUNT(AUTO) 2.53 MIL/uL (4.50-6.20); RED CELL DISTRIBUTION WIDTH 17.4 % (11.0-15.5)
[2019-11-12 05:09] LABS: CREATININE 2.4 mg/dL (0.5-1.5); PHOSPHORUS 4.7 mg/dL (2.5-4.9); POTASSIUM 4.1 mmol/L (3.5-5.1)
[2019-11-12 06:16] LABS: BAND NEUTROPHILS % (MANUAL) 3 % (0-2); EOSINOPHILS % (MANUAL) 3 % (1-6); LYMPHOCYTES % (MANUAL) 3 % (22-44); MAN.DIFF COMMENT-IMPRESSION MANUAL DIFFERENTIAL; MONOCYTES % (MANUAL) 15 % (2-9); SEGMENTED NEUTROPHILS % 76 % (40-70)
[2019-11-12 06:17] LABS: PLATELET MORPHOLOGY COMMENT DECREASED
[2019-11-12] MEDS: INSULIN HUMULIN R 100 UNIT/ML 3ML SQ SCH ×4 (06:34→21:00)
[2019-11-12] MEDS: IPRATROPIUM/ALBUTEROL SULFATE 3 ML SOLUTION IH PRN ×2 (07:02→19:09)
[2019-11-12] MEDS: ALBUMIN (HUMAN) 25% 100 ML IV SCH ×3 (07:45→21:26)
--- NOTE | 2019-11-12 08:40 | NUR ---
U/S GUIDED PARACENTESIS PROCEDURE PERFORMED BY DR. HERNANDEZ. PUNCTURE SITE LEFT UPPER QUADRANT AND PATIENT TOLERATED PROCEDURE WELL. TOTAL REMOVED 5.6 LITERS OF CLOUDY YELLOW ASCITES FLUID. END OF PROCEDURE AT 0935. CATHETER REMOVED AND DRESSING APPLIED. NO BLEEDING NOTED. CALLED REPORT TO BLAIRE PEDERSON. PATIENT TRANSPORTED TO 4TH FLOOR RM 422 VIA BED AT 1000. PT STABLE, AAO X3 WITH NO C/O PAIN.
[2019-11-12] MEDS: IRON SUCROSE COMPLEX 100 MG in SODIUM CHLORIDE 0.9% 50 ML IV SCH (09:00)
[2019-11-12] MEDS ORDERED: ALBUMIN (HUMAN) 25% 200 ML IV SCH (10:15)
[2019-11-12] MEDS: FUROSEMIDE 10 MG/ML 2ML VIAL IV SCH (11:13)
[2019-11-12] MEDS: MIDODRINE HCL 5 MG TABLET PO SCH ×3 (11:13→21:27)
[2019-11-12] MEDS: LACTULOSE 20 GM/30 ML UDCUP PO SCH ×2 (11:13→18:24)
[2019-11-12] MEDS: RIFAXIMIN 550 MG TABLET PO SCH ×2 (11:13→21:27)
[2019-11-12] MEDS: PANTOPRAZOLE 40 MG/VIAL IVP SCH ×2 (11:13→21:27)
[2019-11-12] MEDS: MEROPENEM 1 GM VIAL IVP SCH ×2 (11:14→21:27)
--- NOTE | 2019-11-12 14:21 | NUR ---
As per BLAIRE Basurto patient is not wanting to get OOB if there's no Bariatric chair that he can sit on.Per BLAIRE Basurto to notify MD regarding patient's discretion.Unable to initiate Physical therapy Evaluation at this time. Addendum: 11/12/19 at 1424 by ABEL RICHARDSON, PT PT Amended: Links added.
[2019-11-12] MEDS ORDERED: PHARMACY COMMUNICATION MISC SCH (17:45)
[2019-11-13 03:36] VITALS: BP 124/65
[2019-11-13] MEDS: LACTULOSE 20 GM/30 ML UDCUP PO SCH ×5 (05:00→19:33)
[2019-11-13] MEDS: IPRATROPIUM/ALBUTEROL SULFATE 3 ML SOLUTION IH PRN ×2 (06:11→18:08)
[2019-11-13] MEDS: INSULIN HUMULIN R 100 UNIT/ML 3ML SQ SCH ×4 (06:33→21:00)
[2019-11-13] MEDS: FUROSEMIDE 10 MG/ML 2ML VIAL IV SCH (06:37)
[2019-11-13 07:59] VITALS: BP 129/70
--- NOTE | 2019-11-13 08:00 | NUR ---
AMBULATION TO BEDSIDE COMMODE BY SHUFFLING, GAIT SLOW AND UNSTEADY WITH 2 PERSON ASSIST. PT STATES THAT AT HOME, HE IS ABLE TO PERFORM PERSONAL HYGIENE, TOILETING. INFORMED PT THAT CONTINUING HIS NORMAL BASELINE ACTIVITIES WOULD BENEFIT STRENGTHENING. PT ASSISTED BACK TO BED. CALL LIGHT WITHIN REACH.
[2019-11-13] MEDS: IRON SUCROSE COMPLEX 100 MG in SODIUM CHLORIDE 0.9% 50 ML IV SCH (09:00)
[2019-11-13] MEDS: MEROPENEM 1 GM VIAL IVP SCH ×2 (09:28→21:29)
[2019-11-13] MEDS: PANTOPRAZOLE SODIUM 40 MG TABLET.DR PO SCH ×2 (09:29→15:10)
[2019-11-13] MEDS: MIDODRINE HCL 5 MG TABLET PO SCH ×3 (09:29→21:29)
[2019-11-13] MEDS: RIFAXIMIN 550 MG TABLET PO SCH ×2 (09:29→21:29)
[2019-11-13 11:51] VITALS: BP 118/57
--- NOTE | 2019-11-13 13:00 | NUR ---
REFUSING LACTULOSE INFORMED PT THAT REFUSING LACTULOSE MAY INCREASE RISK FOR A RISE IN AMMONIA LEVEL WHICH CAN INCREASE RISK FOR DISORIENTATION AND UNRESPONSIVENESS IN WHICH LACTULOSE ADMINISTRATION MAY BE VIA ENEMA OR NG TUBE PLACEMENT. PT STATES HE UNDERSTANDS RISKS AND ACCEPTS RESPONSIBILITY.
[2019-11-13] MEDS ORDERED: FUROSEMIDE 20 MG TABLET ONE (14:57)
[2019-11-13] MEDS: FUROSEMIDE 20 MG TABLET PO SCH (15:10)
[2019-11-13 16:22] VITALS: BP 110/55
--- NOTE | 2019-11-13 18:44 | NUR ---
DR WORTHY AT BEDSIDE UPDATE GIVEN, ORDERS RECEIVED. PT AGREED TO TAKE LACTULOSE.
[2019-11-13 19:48] VITALS: BP 112/58
[2019-11-13 23:50] VITALS: BP 112/63
[2019-11-14 04:16] VITALS: BP 112/66
[2019-11-14] MEDS: LACTULOSE 20 GM/30 ML UDCUP PO SCH ×3 (05:00→21:00)
[2019-11-14 05:53] LABS: BASOPHILS % (AUTO) 0.6 % (0.0-5.0); EOSINOPHILS % (AUTO) 2.4 % (0.0-8.0); HEMATOCRIT 26.8 % (42-54); LYMPHOCYTES % (AUTO) 16.6 % (21.0-51.0); MEAN CORPUSCULAR HEMOGLOBIN 31.1 pg (27.0-33.0); MEAN CORPUSCULAR HGB CONC 32.5 g/dL (32.0-36.0); MEAN CORPUSCULAR VOLUME 95.7 fL (79-99); MONOCYTES % (AUTO) 12.9 % (3.0-13.0); NEUTROPHILS % (AUTO) 60.4 % (40.0-77.0); PLATELET COUNT (AUTO) 80 K/uL (130-400); RED CELL DISTRIBUTION WIDTH 16.9 % (11.0-15.5); WHITE BLOOD COUNT (AUTO) 9.9 K/uL (4.8-10.8)
[2019-11-14] MEDS: IPRATROPIUM/ALBUTEROL SULFATE 3 ML SOLUTION IH PRN ×2 (06:14→18:35)
[2019-11-14] MEDS: PANTOPRAZOLE SODIUM 40 MG TABLET.DR PO SCH ×2 (06:21→17:54)
[2019-11-14] MEDS: FUROSEMIDE 20 MG TABLET PO SCH ×2 (06:21→17:55)
[2019-11-14 06:25] LABS: CREATININE 1.5 mg/dL (0.5-1.5); PHOSPHORUS 2.4 mg/dL (2.5-4.9); POTASSIUM 3.9 mmol/L (3.5-5.1)
[2019-11-14 07:30] VITALS: BP 123/52
[2019-11-14] MEDS: INSULIN HUMULIN R 100 UNIT/ML 3ML SQ SCH ×4 (07:30→21:00)
[2019-11-14] MEDS: MIDODRINE HCL 5 MG TABLET PO SCH ×4 (08:40→21:06)
[2019-11-14] MEDS: MEROPENEM 1 GM VIAL IVP SCH ×2 (08:40→21:06)
[2019-11-14] MEDS: RIFAXIMIN 550 MG TABLET PO SCH ×2 (08:40→21:06)
[2019-11-14 11:00] VITALS: BP 143/51
[2019-11-14] MEDS: IRON SUCROSE COMPLEX 100 MG in SODIUM CHLORIDE 0.9% 50 ML IV SCH (13:12)
[2019-11-14 16:00] VITALS: BP 125/72
--- NOTE | 2019-11-14 18:26 | NUR ---
CM Note: HNR pending approval CM met with pt initially declined placement, now changed his mind, requested short term placement w/HNR, STEVEN signed. Faxed order, clinicals, PT, [facility], Covid Post Acute Care Assessments, confirmation received. Spoke to Janice, will work on approval. Aware dcp once approved. EMS filled out pending to be faxed w/current date, primary nurse to call [facility] once pt ready to DC. Primary nurse aware. CM to cont to follow up.
[2019-11-14 20:02] VITALS: BP 135/65
[2019-11-14] MEDS ORDERED: TRAZODONE HCL 100 MG TABLET PO SCH (21:00)
[2019-11-14 23:42] VITALS: BP 127/67
[2019-11-15 04:06] VITALS: BP 132/47
[2019-11-15] MEDS: LACTULOSE 20 GM/30 ML UDCUP PO SCH ×2 (05:00→13:01)
[2019-11-15] MEDS: IPRATROPIUM/ALBUTEROL SULFATE 3 ML SOLUTION IH PRN (06:35)
[2019-11-15] MEDS: INSULIN HUMULIN R 100 UNIT/ML 3ML SQ SCH ×3 (07:24→16:30)
[2019-11-15] MEDS: PANTOPRAZOLE SODIUM 40 MG TABLET.DR PO SCH ×2 (07:42→17:11)
[2019-11-15] MEDS: FUROSEMIDE 20 MG TABLET PO SCH ×2 (07:42→17:12)
[2019-11-15] MEDS ORDERED: FLUOXETINE HCL 20 MG CAPSULE PO SCH (09:00)
[2019-11-15] MEDS: IRON SUCROSE COMPLEX 100 MG in SODIUM CHLORIDE 0.9% 50 ML IV SCH (11:31)
[2019-11-15] MEDS: MEROPENEM 1 GM VIAL IVP SCH (11:31)
[2019-11-15] MEDS: RIFAXIMIN 550 MG TABLET PO SCH (11:32)
[2019-11-15] MEDS: MIDODRINE HCL 5 MG TABLET PO SCH ×2 (11:32→13:02)
--- NOTE | 2019-11-15 11:56 | NUR ---
CM Note: HNR pending approval CM spoke to Janice Moore. Currently pending approval at this time. EMS arranged and faxed, primary nurse to call [facility] once pt ready to DC. Primary nurse aware. CM to continue to follow up.
[2019-11-15 16:00] VITALS: BP 141/63
== END 2019-11-15 19:35 | DRG 871 ==
LOC: EDH 22:01 → EDHIP 11-10 01:31 → 4DH 11-10 03:03 → DAHIP 11-10 15:35 → 4DH 11-11 16:28
PROVIDERS: ADMIT Hospitalist; ATTEND Hospitalist
PROC: 30233N1 Transfusion of Nonautologous Red Blood Cells into Peripheral Vein, Percutaneous Approach (ICD-10-PCS; principal; 2019-11-09)
PROC: 0W9G3ZZ Drainage of Peritoneal Cavity, Percutaneous Approach (ICD-10-PCS; 2019-11-12)
DX: A41.51 Sepsis due to Escherichia coli [E. coli] (principal); G93.41 Metabolic encephalopathy; N39.0 Urinary tract infection, site not specified; E72.20 Disorder of urea cycle metabolism, unspecified; N17.9 Acute kidney failure, unspecified; K76.6 Portal hypertension; Z68.44 Body mass index [BMI] 60.0-69.9, adult; Z16.24 Resistance to multiple antibiotics; D63.8 Anemia in other chronic diseases classified elsewhere; N18.9 Chronic kidney disease, unspecified; K70.30 Alcoholic cirrhosis of liver without ascites; D69.6 Thrombocytopenia, unspecified; E66.01 Morbid (severe) obesity due to excess calories; B19.20 Unspecified viral hepatitis C without hepatic coma; E87.70 Fluid overload, unspecified; K70.31 Alcoholic cirrhosis of liver with ascites; K72.90 Hepatic failure, unspecified without coma; E11.22 Type 2 diabetes mellitus with diabetic chronic kidney disease; E78.5 Hyperlipidemia, unspecified; G47.30 Sleep apnea, unspecified; I12.9 Hypertensive chronic kidney disease with stage 1 through stage 4 chronic kidney disease, or unspecified chronic kidney disease; J01.90 Acute sinusitis, unspecified; J45.909 Unspecified asthma, uncomplicated; Z74.01 Bed confinement status; Z91.19 Patient's noncompliance with other medical treatment and regimen; Z82.3 Family history of stroke; Z83.3 Family history of diabetes mellitus; Z82.5 Family history of asthma and other chronic lower respiratory diseases; Z82.0 Family history of epilepsy and other diseases of the nervous system; Z82.49 Family history of ischemic heart disease and other diseases of the circulatory system
CPT/HCPCS: 36415; 36430; 49083; 70450; 71045; 76705; 80048; 80053; 80305; 81001; 82042; 82140; 82150; 82270; 82533; 82948; 83540; 83550; 83615; 83690; 83880; 84100; 84157; 84484; 85014; 85018; 85025; 85610; 85730; 86850; 86900; 86901; 86922; 87040; 87071; 87077; 87088; 87186; 87205; 89051; 93005; 94640; 94664; 99291; C9113; G0378; G0480; J0696; J0885; J1756; J1885; J1940; J2185; J2354; J7050; P9016; P9046

== ENCOUNTER → 2019-11-19 | Outpatient (CLI) | payer MEDICARE ==
[~2019-11-19] MED LIST changes: +ALBUMIN (HUMAN) 25% 200 ML IV ONE; -BUDE10.2 IH; +FURO20TA4 PO; -LACT10SO PO; +LACT10SO62 PO; -PANT40TA PO; +SPIR50TA5 PO; -THIA100T91 PO
[2019-11-19 11:59] LABS: CREATININE 1.3 mg/dL (0.5-1.5); INR 1.2 (0.85-1.15); POTASSIUM 4.2 mmol/L (3.5-5.1); PROTHROMBIN TIME 12.9 SEC (9.6-11.6)
[2019-11-19 12:02] LABS: ALBUMIN 2.4 g/dL (3.5-5.0)
[2019-11-19 12:06] LABS: BASOPHILS % (AUTO) 0.4 % (0.0-5.0); EOSINOPHILS % (AUTO) 3.3 % (0.0-8.0); HEMATOCRIT 26.2 % (42-54); LYMPHOCYTES % (AUTO) 17.9 % (21.0-51.0); MEAN CORPUSCULAR HGB CONC 30.9 g/dL (32.0-36.0); MEAN CORPUSCULAR VOLUME 103.6 fL (79-99); MONOCYTES % (AUTO) 9.9 % (3.0-13.0); NEUTROPHILS % (AUTO) 66.4 % (40.0-77.0); PLATELET COUNT (AUTO) 124 K/uL (130-400); RED BLOOD CELL COUNT(AUTO) 2.53 MIL/uL (4.50-6.20); RED CELL DISTRIBUTION WIDTH 18.1 % (11.0-15.5); WHITE BLOOD COUNT (AUTO) 10.6 K/uL (4.8-10.8)
--- NOTE | 2019-11-19 12:30 | NUR ---
U/S GD PARACENTESIS PROCEDURE PERFORMED BY DR. VITAL. PUNCTURE SITE LEFT UPPER QUADRANT OF ABDOMEN AND PATIENT TOLERATED PROCEDURE WELL. TOTAL REMOVED 3.1 LITERS OF CLOUDY YELLOW FLUID. END OF PROCEDURE AT 1300. CATHETER REMOVED AND DRESSING APPLIED. NO BLEEDING NOTED. CALLED REPORT TO JACQUELIN VALENCIA, [facility] NURSE. PATIENT AND NURSE, JAKE DANIELSON LVN GIVEN DISCHARGE INSTUCTIONS. PATIENT/NURSE, JACQUELIN VALENCIA VERBALIZED UNDERSTANDING. PT DISCHARGED VIA W/C, STABLE, AAO X3 WITH NO C/O PAIN. SPECIMEN SENT TO LAB.
[2019-11-19 13:03] LABS: BILIRUBIN,TOTAL 2.1 mg/dL (0.2-1.0); TOTAL PROTEIN, SERUM 8.1 g/dL (6.0-8.3)
[2019-11-19 15:30] LABS: APPEARANCE BODY FLUID SLIGHTLY CLOUDY (CLEAR); BODY FLUID WBC 83 /cu. mm.; COLOR,BODY FLUID LT YELLOW (LT YELLOW); SPECIMENTYPE,BODY FLUID ASCITES
[2019-11-19 15:31] LABS: BODY FLUID RBC 1200 /cu. mm.
[2019-11-19 16:20] LABS: TOTAL VOLUME,BODY FLUID 3200 mL
[2019-11-19 17:06] LABS: BF LYMPHOCYTE 91 %
== END | disposition home or self-care (01) ==
LOC: RAH 10:06
PROVIDERS: ATTEND Internal Medicine Gastroenterology
DX: K70.31 Alcoholic cirrhosis of liver with ascites (principal); G93.40 Encephalopathy, unspecified; D50.9 Iron deficiency anemia, unspecified; E66.01 Morbid (severe) obesity due to excess calories; B18.2 Chronic viral hepatitis C; J45.909 Unspecified asthma, uncomplicated; E11.9 Type 2 diabetes mellitus without complications; I10 Essential (primary) hypertension; Z90.49 Acquired absence of other specified parts of digestive tract; Z98.890 Other specified postprocedural states; Z87.19 Personal history of other diseases of the digestive system; Z82.49 Family history of ischemic heart disease and other diseases of the circulatory system; Z82.0 Family history of epilepsy and other diseases of the nervous system; Z86.59 Personal history of other mental and behavioral disorders; Z79.899 Other long term (current) drug therapy; Z86.19 Personal history of other infectious and parasitic diseases
CPT/HCPCS: 36415; 49083; 80053; 85025; 85610; 89051; A4215; P9046